=== PATIENT | female | born 1935 | race Caucasian/White ===

== ENCOUNTER 2017-02-01 13:02 | Outpatient (CLI) | payer OTHER | END 2017-02-01 13:03 | disposition home or self-care (01) | DX: Z13.820 Encounter for screening for osteoporosis (principal) ==

== ENCOUNTER 2019-05-09 14:40 | Emergency (ER) | payer MEDICARE, OTHER ==
[2019-05-09] MEDS ORDERED: HYDROcod/ACETAM 5/325 MG TABLET PO STA (16:24)
--- NOTE | 2019-05-09 16:27 | ED Physician Documentation ---
History of Present Illness - Stated complaint Stated Complaint: PAIN IN BOTH KNEES - Chief complaint Chief Complaint: Ext Problem - History obtained from History obtained from: Patient, Family (granddaughter) - History of Present Illness Timing: Chronic (84-year-old woman who lives alone after the passing of her about a year ago of 65 years presents with chronic right knee pain that is a little worse than normal and some numbness of the left leg which is diffuse and not dermatomal which is caused to falls without injury recently because her leg is giving out on her despite using a walker. She does have also have chronic back pain. No fevers, chills, weight loss. No history of cancer. 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.) Review of Systems Ten Systems: 10 systems reviewed and negative Constitutional: denies: Fever, Chills Cardiac: denies: Chest pain / pressure, Palpitations Respiratory: denies: Dyspnea, Cough GI: denies: Abdominal Pain PD PAST MEDICAL HISTORY - Present Medications Home Medications: Ambulatory Orders Medication Instructions Recorded Confirmed Hydrocodone/Acetaminophen 1 - 2 each PO Q6H PRN #14 tablet 05/09/19 [Hydrocodon-Acetaminophen 5-325] - Allergies Allergies/Adverse Reactions: Allergies Allergy/AdvReac Type Severity Reaction Status Date / Time No Known Drug Allergies Allergy Verified 05/09/19 14:50 PD ED PE NORMAL - Vitals Vital signs reviewed: Yes - General General: Alert and oriented X 3, No acute distress - HEENT HEENT: PERRL, EOMI - Cardiac Cardiac: RRR, No murmur - Respiratory Respiratory: No respiratory distress, Clear bilaterally - Abdomen Abdomen: Non tender - Back Back: No spinal TTP - Extremities Extremities: Other (The right knee does have a small effusion, it is slightly warm but certainly not hot with no overlying redness. She has mild pain with passive range of motion. Despite her complaints she has equal and symmetric sensation throughout the lower extremities. 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 No active cellulitis.) - Neuro Neuro: Alert and oriented X 3, Normal speech Results - Vitals Vitals: Vital Signs - 24 hr 05/09/19 05/09/19 14:44 19:02 Temperature 37.2 C 36.9 C Heart Rate 89 70 Respiratory 18 20 Rate Blood Pressure 179/66 H 189/58 H O2 Saturation 96 95 Oxygen O2 Source Room air - Labs Labs: Laboratory Tests 05/09/19 05/09/19 05/09/19 16:36 16:36 19:19 WBC 11.7 H RBC 5.07 Hgb 13.8 Hct 44.4 MCV 87.6 MCH 27.2 MCHC 31.1 L RDW 15.6 H Plt Count 275 MPV 10.3 Neut # (Auto) 9.8 H Lymph # (Auto) 0.9 L [place] # (Auto) 1.0 Eos # (Auto) 0.0 Baso # (Auto) 0.0 Absolute Nucleated RBC 0.00 Nucleated RBC % 0.0 Sodium 139 Potassium 4.7 Chloride 104 Carbon Dioxide 21 Anion Gap 14.0 H BUN 46 H Creatinine 2.4 H Estimated GFR (MDRD) 19 L Glucose 121 H Calcium 9.4 Total Bilirubin 1.3 H AST 36 ALT 24 Alkaline Phosphatase 62 Total Protein 7.8 Albumin 3.7 Globulin 4.1 Albumin/Globulin Ratio 0.9 L Lipase 21 L Fluid Source SYNOVIAL Fluid Color BLOODY Fluid Clarity BLOODY Fluid WBC 7808 Fluid RBC [id number] Fluid Crystals 05/09/19 19:19 WBC RBC Hgb Hct MCV MCH MCHC RDW Plt Count MPV Neut # (Auto) Lymph # (Auto) [place] # (Auto) Eos # (Auto) Baso # (Auto) Absolute Nucleated RBC Nucleated RBC % Sodium Potassium Chloride Carbon Dioxide Anion Gap BUN Creatinine Estimated GFR (MDRD) Glucose Calcium Total Bilirubin AST ALT Alkaline Phosphatase Total Protein Albumin Globulin Albumin/Globulin Ratio Lipase Fluid Source Fluid Color Fluid Clarity Fluid WBC Fluid RBC Fluid Crystals NONE SEEN - Rads (name of study) L spine CT Radiology: EMP read contemporaneously (DDD, 2.7cm AAA needs F/u 5 yrs, gallstones) R knee XR Radiology: EMP read contemporaneously (OA effiusion) Procedures - Arthrocentesis Joint: Knee, Right Preparation: Consent obtained, Sterile prep and drape Anesthesia: Lidocaine 1% Fluid: Bloody, Sent for cell count, Sent for crystals, Fluid obtained - cc (30ml), Sent for gram stain, Other (instilled 5ml 0.5%marcaine). No: Purulent Aftercare: Dressing applied PD MEDICAL DECISION MAKING - ED course ED course: 84-year-old woman with chronic right knee pain and some back pain 2. She has some symptoms that would be concerning for her sciatica radiculopathy but no physical findings of same. She has terrible arthritis in the right knee and in the back but no other acute findings. After discussion with the on-call orthopedic surgeon, Dr. Marcos we decided to do arthrocentesis and I got about 30 mL off and injected about 5 mL of 0.5% Marcaine. He recommended no steroids given the remote possibility of infection and she did not get any steroids. After all this was done she was feeling much better and ambulate and around the department without evident pain. Departure - Departure Disposition: Home, Self Care Clinical Impression: Osteoarthritis of right knee Qualifiers: Osteoarthritis type: primary Qualified Code(s): M17.11 - Unilateral primary osteoarthritis, right knee Condition: Good Record reviewed to determine appropriate education?: Yes Instructions: Total Knee Replace Minimal Invasive About Follow-Up: [facility] [Provider Group] - Within 1 week Prescriptions: Hydrocodone/Acetaminophen [Hydrocodon-Acetaminophen 5-325] 1 - 2 each PO Q6H PRN #14 tablet PRN Reason: pain Comments: You need to follow-up with an orthopedic surgeon regarding your knee and also your primary care physician. We found some other findings on your CAT scan today, you have gallstones and a very small abdominal aortic aneurysm that needs to be rechecked in 5 years. Return for new or worsening symptoms.
[2019-05-09 16:40] LABS: BASOPHILS % (AUTO) 0.2 %; EOSINOPHILS % (AUTO) 0.1 %; HGB - HEMOGLOBIN 13.8 g/dL (12.0-16.0); LYMPHOCYTES # (AUTO) 0.9 10^3/uL (1.5-3.5); LYMPHOCYTES % (AUTO) 7.3 %; MEAN CORPUSCULAR HEMOGLOBIN 27.2 pg (27.0-31.0); MEAN CORPUSCULAR HGB CONC 31.1 g/dL (32.0-36.0); MEAN CORPUSCULAR VOLUME 87.6 fL (81.0-99.0); MEAN PLATELET VOLUME 10.3 fL (7.9-10.8); MONOCYTES % (AUTO) 8.5 %; NEUTROPHILS # (AUTO) 9.8 10^3/uL (1.5-6.6); NEUTROPHILS % (AUTO) 83.6 %; PLT - PLATELET COUNT 275 10^3/uL (130-450); RED BLOOD COUNT 5.07 10^6/uL (4.20-5.40); RED CELL DISTRIBUTION WIDTH 15.6 % (12.0-15.0); WHITE BLOOD COUNT 11.7 x10^3/uL (4.8-10.8)
[2019-05-09 16:55] LABS: ALBUMIN 3.7 g/dL (3.2-5.5); ALBUMIN/GLOBULIN RATIO 0.9 (1.0-2.2); BILIRUBIN,TOTAL 1.3 mg/dL (0.2-1.0); CALCIUM 9.4 mg/dL (8.5-10.3); CREATININE 2.4 mg/dL (0.4-1.0); TOTAL PROTEIN 7.8 g/dL (6.7-8.2)
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
--- NOTE | 2019-05-09 18:17 | CT Report ---
Reason: back/knee pain, leg numbness Procedure Date: 05/09/2019 Accession Number: [id number] / [id number] Procedure: CT - LUMBAR SPINE WO CPT Code: FULL RESULT: EXAM: CT LUMBAR SPINE WITHOUT CONTRAST EXAM DATE: 05/09/2019 05:35 PM. CLINICAL HISTORY: Back/knee pain, leg numbness. COMPARISONS: XR LUMBOSACRAL SPINE 4 VIEWS 09/07/2010 10:38 AM. TECHNIQUE: Thin-section axial images were acquired of the lumbar spine from T12 to S1 without contrast. Post-processing: Coronal and sagittal reformats. Other: None. In accordance with CT protocol optimization, one or more of the following dose reduction techniques were utilized for this exam: automated exposure control, adjustment of mA and/or KV based on patient size, or use of iterative reconstructive technique. FINDINGS: Alignment: Dextroconvex curvature of the lumbar spine. Superior left pelvic tilt. Bones/discs: Five [id number] lumbar vertebral bodies are present. The bones are osteopenic. No acute fracture, subluxation, or compression deformity. Moderate to severe multilevel degenerative facet arthropathy. Multilevel degenerative disk disease. Bilateral bony neural foramina narrowing most significant from L2-L4. Moderate spinal canal stenosis at L3-L4. Musculature: Unremarkable. Other: The gallbladder is partially visualized and appears distended. Partially visualized calcified gallstones. Atherosclerosis of the abdominal aorta and iliac arteries. The infrarenal abdominal aorta is mildly dilated measuring up to 2.7 x 2.5 cm. Diverticulosis of the visualized sigmoid colon. No acute inflammatory changes visualized. IMPRESSION: Osteopenia. No acute fracture or malalignment of the lumbar spine. Moderate to severe multilevel degenerative joint and disk disease, as described above. Partial visualization of the gallbladder, which is distended and contains calcified intraluminal gallstones. Further evaluation with gallbladder ultrasound recommended as clinically indicated. Infrarenal abdominal aortic aneurysm measuring up to 2.7 cm in diameter. Based on size, routine surveillance recommended every 5 years. Sigmoid diverticulosis. No evidence of acute diverticulitis of the visualized sigmoid colon. RADIA
[2019-05-09] MEDS ORDERED: BUPIVACAINE 0.5% PF 10 ML VIAL SUBQ STA (18:54)
[2019-05-09] MEDS ORDERED: LIDOCAINE 1%-EPI 1:100000 20 ML MDV SUBQ STA (18:54)
[2019-05-09 20:22] LABS: BF COLOR BLOODY; BF SOURCE SYNOVIAL; CC,BF RBC 258000 /mm^3
[2019-05-09] MEDS ORDERED: HYDROcod/ACET 5/325 Prepack 4 PO STA (20:38)
[2019-05-09 20:53] VITALS: BP 159/72
[2019-05-09 21:27] LABS: LYMPHOCYTES %,BODY FLUID 5; MESOTHELIAL %, BF 0 %; MONOCYTES %,BODY FLUID 4 %
== END 2019-05-09 20:58 | disposition home or self-care (01) ==
LOC: ED 14:40
DX: M25.461 Effusion, right knee (principal); M17.11 Unilateral primary osteoarthritis, right knee; M46.90 Unspecified inflammatory spondylopathy, site unspecified
CPT/HCPCS: 20610; 36415; 72131; 73562; 80053; 83690; 85025; 87070; 87205; 89051; 89060; 99282; 99284; A9270

== ENCOUNTER 2019-05-13 13:07 | Outpatient (CLI) | payer MEDICARE | END 2019-05-13 13:08 | disposition EMS.NT | LOC: EMS 13:07 | PROVIDERS: ATTEND Surgery | DX: Z03.89 Encounter for observation for other suspected diseases and conditions ruled out (principal) ==

== ENCOUNTER 2019-09-04 18:11 | Outpatient (CLI) | payer MEDICARE | END 2019-09-04 18:12 | disposition critical access hospital (66) | LOC: EMS 18:11 | PROVIDERS: ATTEND Surgery | DX: Z04.3 Encounter for examination and observation following other accident (principal) | CPT/HCPCS: A0425; A0427 ==

== ENCOUNTER 2019-09-04 18:31 | Inpatient (IN) | payer MEDICARE ==
[2019-09-04] MEDS ORDERED: ACETAMINOPHEN 325 MG TABLET PO STA (18:53)
[2019-09-04] MEDS ORDERED: SODIUM CHLORIDE 0.9% 1,000 ML IV ONE (18:53)
--- NOTE | 2019-09-04 18:55 | ED Physician Documentation ---
PD HPI SYNCOPE - Stated complaint Stated Complaint: FALL, DAYS DOWN, HTN, AFIB - Chief complaint Chief Complaint: General - History obtained from History obtained from: Patient, Family, EMS - History of Present Illness Witnessed: Unwitnessed Timing - onset: Yesterday (She likely fainted last evening or sometime yesterday. She states she remembers going to the bathroom and then getting up from the bathroom and feeling generally weak and lightheaded. She next remembers her granddaughter talking at her on the floor. 1 of her daughters had last talked to her on Tuesday which was 2 days ago. Her granddaughter came in to check on her today as no one had heard from her through the day today. The granddaughter found her pet bird still with the nighttime cover on it and it did not look like the patient had been at all during the day today. Presumption therefore is the patient fell yesterday or last evening and had been on the floor since that time. The patient is not aware where of that degree of time having passed.) Preceding symptoms: Nausea / vomiting (She has been feeling nauseated with less appetite over the last 4 to 5 days.), Light headed, Generalized weakness Contributing factors: Recent med change (Treatment for shingles in the past 2 weeks), Decreased PO intake, Just stood up (She remembers feeling lightheaded when getting up from the toilet), Other (she is on Plavix) Injury occurred: Fell Similar symptoms before: Has not had sx before (No prior syncopal episodes.) Recently seen: Clinic (She had facial shingles on the right side and was treated with the valacyclovir and steroids for 5 days and had some diminishing of the rash and it was drying up. However she still had pain and tingling on the face and so was started on gabapentin a week ago. She reportedly was feeling sleepy and lightheaded after starting that. She also been having less appetite and some nausea.) Review of Systems Constitutional: reports: Fatigue. denies: Fever, Chills Nose: denies: Rhinorrhea / runny nose, Congestion Throat: denies: Sore throat Cardiac: denies: Chest pain / pressure Respiratory: denies: Dyspnea, Cough GI: reports: Nausea. denies: Abdominal Pain, Vomiting (but decreased intake for few days), Diarrhea, Bloody / black stool : denies: Dysuria, Incontinent Skin: reports: Rash (shingles right face for 2 weeks, improving but with pain/numbness still.) Musculoskeletal: denies: Neck pain, Back pain Neurologic: reports: Generalized weakness. 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 : None HEENT: None Psych: None Musculoskeletal: Other Derm: None - Present Medications Home Medications: Ambulatory Orders Medication Instructions Recorded Confirmed Hydrocodone/Acetaminophen 1 - 2 each PO Q6H PRN #14 tablet 05/09/19 [Hydrocodon-Acetaminophen 5-325] - Allergies Allergies/Adverse Reactions: Allergies Allergy/AdvReac Type Severity Reaction Status Date / Time No Known Drug Allergies Allergy Verified 09/04/19 18:41 - Social History Does the pt smoke?: No Smoking Status: Never smoker Does the pt drink ETOH?: No Does the pt have substance abuse?: No - Immunizations Immunizations: TDAP >10years/unknown PD ED PE NORMAL - Vitals Vital signs reviewed: Yes - General General: Alert and oriented X 3, Well developed/nourished - HEENT HEENT: Pharynx benign, Other (Right dustin-orbital and forehead area with drying vesicular rash that is tender consistent with improving shingles.). No: Moist mucous membranes - Neck Neck: Supple, no meningeal sign, No bony TTP, No JVD - Cardiac Cardiac: RRR, No murmur - Respiratory Respiratory: Clear bilaterally - Abdomen Abdomen: Soft, Non tender - Back Back: No CVA TTP, No spinal TTP - Derm Derm: Normal color, Warm and dry - Extremities Extremities: No deformity, No tenderness to palpate, No edema, No calf tenderness / cord - Neuro Neuro: Alert and oriented X 3, dyno technician 2-12 intact, No motor deficit, No sensory deficit, Normal speech Eye Opening: Spontaneous Motor: Obeys Commands Verbal: Oriented GCS Score: 15 Results - Vitals Vitals: Vital Signs - 24 hr 09/04/19 09/04/19 09/04/19 18:41 18:56 19:20 Temperature 36.9 C Heart Rate 69 71 Respiratory 16 18 Rate Blood Pressure 206/61 H 203/67 H O2 Saturation 100 95 90 L Oxygen O2 Source Nasal cannula - EKG (time done) 18:58 Rate: Rate (enter#) (59) Rhythm: Sinus bradycardia [place]: Normal Intervals: Normal [place] QRS: Normal Ischemia: Normal ST segments. No: ST elevation c/w ischemia, ST depression - Labs Labs: Laboratory Tests 09/04/19 09/04/19 09/04/19 18:42 18:42 18:42 WBC 8.8 RBC 4.06 L Hgb 11.9 L Hct 36.5 L MCV 89.9 MCH 29.3 MCHC 32.6 RDW 14.9 Plt Count 245 MPV 11.1 H Neut # (Auto) 7.5 H Lymph # (Auto) 0.7 L [place] # (Auto) 0.5 Eos # (Auto) 0.1 Baso # (Auto) 0.0 Absolute Nucleated RBC 0.00 Nucleated RBC % 0.0 PT 12.3 INR 1.1 APTT 27.7 Sodium 137 Potassium 4.5 Chloride 107 Carbon Dioxide 18 L Anion Gap 12.0 BUN 55 H Creatinine 2.7 H Estimated GFR (MDRD) 17 L Glucose 78 Calcium 8.9 Magnesium 2.0 Total Bilirubin 1.4 H AST 37 ALT 17 Alkaline Phosphatase 43 Total Creatine Kinase 902 H Troponin I High Sens Total Protein 6.6 L Albumin 3.6 Globulin 3.0 Albumin/Globulin Ratio 1.2 Lipase 24 09/04/19 18:42 WBC RBC Hgb Hct MCV MCH MCHC RDW Plt Count MPV Neut # (Auto) Lymph # (Auto) [place] # (Auto) Eos # (Auto) Baso # (Auto) Absolute Nucleated RBC Nucleated RBC % PT INR APTT Sodium Potassium Chloride Carbon Dioxide Anion Gap BUN Creatinine Estimated GFR (MDRD) Glucose Calcium Magnesium Total Bilirubin AST ALT Alkaline Phosphatase Total Creatine Kinase Troponin I High Sens 84.2 H* Total Protein Albumin Globulin Albumin/Globulin Ratio Lipase - Rads (name of study) head CT Radiology: Prelim report reviewed (age related changes. No acute ICH. ), See rad report cervical CT Radiology: Prelim report reviewed (no fractures/acute changes), See rad report bilat knees Radiology: Prelim report reviewed (no fractures; arthritic changes), See rad report chest x Radiology: Prelim report reviewed (no acute process), See rad report PD MEDICAL DECISION MAKING - ED course Complexity details: reviewed results (Lab results are noted. Recheck vitals are showing initially a lower adequate blood pressure but this did increase. However she had not been on any of her usual medicines for a day or more which includes a blood pressure medicine. We can give her a dose of metoprolol IV. Recheck of the vital signs after that.), re-evaluated patient (She is appearing with better color and more energetic after some IV fluids and also some dextrose and oral intake. She does have renal insufficiency has a baseline and it slightly worse at 2.7 compared to her previous 2.4. With that in mind, her creatinine kinase of 900 is still concerning for the potential of renal insufficiency from the rhabdomyolysis. I think she needs further hydration and evaluation of her kidney function and clearing of the muscle proteins. I would also better evaluate for the reasoning of her apparent syncope. The most likely cause may be a combination of under hydration and nutrition feeling less appetite and nauseous the last several days combined with the effect of the gabapentin she had been prescribed a week ago. This has been making her sleepy and lightheaded.), considered differential (Sounds likely a postural hypotension compounded by under hydration and side effects to gabapentin. However she did have a prolonged loss of consciousness or unawareness of time as she likely fell last evening and did not feel like she been on the floor for long time. She has had renal insufficiency at baseline and the elevated CK will be worrisome for potential worsening of renal function and needs to be have hydration. Want to make sure not to fluid overload her load her too quickly though given the underlying renal failure. This will need judicious monitoring over a longer period than just the ER.), d/w patient Departure - Departure Disposition: 66 [facility] DC/Xfer Clinical Impression: Dehydration Syncope Qualifiers: Syncope type: unspecified Qualified Code(s): R55 - Syncope and collapse Rhabdomyolysis Qualifiers: Rhabdomyolysis type: traumatic Encounter type: initial encounter Qualified Code(s): T79.6XXA - Traumatic ischemia of muscle, initial encounter Chronic renal insufficiency Qualifiers: Chronic kidney disease stage: unspecified stage Qualified Code(s): N18.9 - Chronic kidney disease, unspecified Condition: Stable Record reviewed to determine appropriate education?: Yes Discharge Date/Time: 09/04/19 21:42
[2019-09-04 19:00] LABS: BASOPHILS % (AUTO) 0.5 %; EOSINOPHILS # (AUTO) 0.1 10^3/uL (0.0-0.7); EOSINOPHILS % (AUTO) 1.4 %; HGB - HEMOGLOBIN 11.9 g/dL (12.0-16.0); LYMPHOCYTES # (AUTO) 0.7 10^3/uL (1.5-3.5); LYMPHOCYTES % (AUTO) 7.8 %; MEAN CORPUSCULAR HEMOGLOBIN 29.3 pg (27.0-31.0); MEAN CORPUSCULAR HGB CONC 32.6 g/dL (32.0-36.0); MEAN CORPUSCULAR VOLUME 89.9 fL (81.0-99.0); MEAN PLATELET VOLUME 11.1 fL (7.9-10.8); MONOCYTES # (AUTO) 0.5 10^3/uL (0.0-1.0); MONOCYTES % (AUTO) 5.2 %; NEUTROPHILS # (AUTO) 7.5 10^3/uL (1.5-6.6); NEUTROPHILS % (AUTO) 84.8 %; PLT - PLATELET COUNT 245 10^3/uL (130-450); RED BLOOD COUNT 4.06 10^6/uL (4.20-5.40); RED CELL DISTRIBUTION WIDTH 14.9 % (12.0-15.0); WHITE BLOOD COUNT 8.8 x10^3/uL (4.8-10.8)
[2019-09-04 19:05] LABS: INR 1.1 (0.8-1.2); PT - PROTHROMBIN TIME 12.3 secs (9.9-12.6)
[2019-09-04 19:09] LABS: ALBUMIN 3.6 g/dL (3.2-5.5); ALBUMIN/GLOBULIN RATIO 1.2 (1.0-2.2); BILIRUBIN,TOTAL 1.4 mg/dL (0.2-1.0); CALCIUM 8.9 mg/dL (8.5-10.3); CREATININE 2.7 mg/dL (0.4-1.0); TOTAL PROTEIN 6.6 g/dL (6.7-8.2)
[2019-09-04 19:12] LABS: PARTIAL THROMBOPLASTIN TIME 27.7 secs (24.9-33.3)
[2019-09-04] MEDS ORDERED: DEXTROSE 10% 250 ML IV STA (19:18)
--- NOTE | 2019-09-04 20:08 | CT Report ---
Reason: fall struck face Procedure Date: 09/04/2019 Accession Number: [id number] / [id number] Procedure: CT - HEAD WO CPT Code: Final Report FULL RESULT: EXAM: CT HEAD EXAM DATE: 09/04/2019 07:38 PM. CLINICAL HISTORY: Fall struck face. COMPARISON: HEAD 03/19/2007 5:20 PM. TECHNIQUE: Multiaxial CT images were obtained from the foramen magnum to the vertex. Reformats: Sagittal and coronal. IV contrast: None. In accordance with CT protocol optimization, one or more of the following dose reduction techniques were utilized for this exam: automated exposure control, adjustment of mA and/or KV based on patient size, or use of iterative reconstructive technique. FINDINGS: Parenchyma: No intraparenchymal hemorrhage. No evidence of mass, midline shift, or CT findings of acute infarction. Hutton-white differentiation is distinct. Diffuse chronic microangiopathic white matter changes are evident. Chronic infarct in the left parietal lobe and posterior left insula. Extraaxial Spaces: Normal for age. No subdural or epidural collections identified. Ventricles: The ventricles and cortical sulci are enlarged, consistent with age-related tissue loss. Sinuses and orbits: Imaged paranasal sinuses, orbits, and mastoids show no significant abnormality. Bones: No evidence of fracture or calvarial defect. Other: Atherosclerotic calcification of the cavernous carotid arteries. IMPRESSION: 1. Generalized age-related cortical atrophic changes without evidence of acute intracranial abnormality. 2. Chronic left parietal/insular MCA distribution infarct. RADIA
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
--- NOTE | 2019-09-04 20:22 | XRAY Report ---
Reason: syncope Procedure Date: 09/04/2019 Accession Number: [id number] / [id number] Procedure: XR - Chest 1 View X-Ray CPT Code: 80597 Final Report FULL RESULT: EXAM: CHEST RADIOGRAPHY EXAM DATE: 09/04/2019 07:35 PM. CLINICAL HISTORY: Syncope. COMPARISON: None. TECHNIQUE: 1 view. A few overlying EKG wires and leads. FINDINGS: Lungs/Pleura: No focal opacities evident. No pleural effusion. No pneumothorax. Mediastinum: Within exam limitations, the cardiomediastinal contour is normal. Other: None. IMPRESSION: No acute disease in chest. RADIA
--- NOTE | 2019-09-04 20:26 | XRAY Report ---
Reason: fall onto both knees Procedure Date: 09/04/2019 Accession Number: [id number] / [id number] Procedure: XR - Knee 3 View BILAT CPT Code: Final Report FULL RESULT: EXAM: BILATERAL KNEE RADIOGRAPHY EXAM DATE: 09/04/2019 07:35 PM. CLINICAL HISTORY: Fall, pain. COMPARISON: KNEE 3 VIEW RT 05/09/2019 4:45 PM. TECHNIQUE: Each knee, 3 views. FINDINGS: Bones: Osteopenia. No definite fracture or other bone lesion. Joints: Marked bilateral 3 compartment joint space narrowing with prominent marginal osteophytes. Small joint effusions, left more than right. Soft Tissues: Unremarkable. IMPRESSION: Marked bilateral degenerate joint disease with small effusions. No definite acute disease. RADIA
[2019-09-04] MEDS ORDERED: SODIUM CHLORIDE FLUSH 0.9% 10 ML SYRINGE IVP PRN (20:45)
[2019-09-04] MEDS ORDERED: ACETAMINOPHEN 325 MG TABLET PO PRN (20:45)
[2019-09-04] MEDS ORDERED: METOPROLOL 5 MG/5 ML VIAL IVP STA (20:48)
--- NOTE | 2019-09-04 21:03 | HISTORY & PHYSICAL EXAMINATION ---
Chief Complaint - Chief Complaint Chief Complaint: syncope History of Present Illness - Admitted From Admitted From:: [facility] - History Obtained From Records Reviewed: yes History obtained from: ED physician and patient - History of Present Illness HPI Comment/Other: Patient is an 84 y/o female who was brought in by her granddaughter after she wa s found face down today around 5pm. She was doing alright 2 days ago (tuesday night). She reports going to the bathroom. Things felt funny when she got off the toilet. She does not remember anything afterwards. Her son Ismael who is DPOA [phone] recalls that she called him at midnight on Tuesday asking him not to pick her up the following day because she was not going to make her hair appointment. She had on scheduled. He reports that as being unusual because she never calls at midnight. She has a pet parrot whose cage is usually cover with a cloth before bedtime. When her granddaughter arrived and found her, the cage was still covered so she estimates she would have been laying there for at least 12- 18 hours. The patient denies any chest pain, dyspnea, abd pain, fever or chills. She recen tly completed antiviral treatment (acyclovir) for shingles. She is on gabapentin as part of treatment. She has bilateral dustin-orbital puffiness and redness. Her skin is very thin Lab work showed a CK of 902, Trop 84, Creatinine 2.7. Baseline is 2.4. She was also found to have a SBP of 206 in the ED. As a result of the above she is being admitted for further treatment. PS: Granddaughter: Kiersten [phone]. Very involved in patient care and most knowledgeable of her history. Son: Ismael (DPOA): [phone]. History - Past Medical History Cardiovascular: reports: Hypertension Respiratory: reports: None Neuro: reports: None Endocrine/Autoimmune: reports: None GI: reports: None UNDER WATER ASSISTANT: reports: None : reports: None HEENT: reports: None Psych: reports: None Musculoskeletal: reports: Other Derm: reports: None MRSA Hx?: No - Past Surgical History Other past surgical history: No surgical history - Family & Social History Family History Comment/Other: She had 5 children. a son from alcoholic liver cirrhosis and a daughter from breast cancer. She has 3 living children. She has no siblings. Living arrangement: At home Living Situation: Alone Social History Notes: She does no smoke, use alcohol or illicit substances. - POLST Patient has POLST: No POLST Status: DNR Meds/Allgy - Home Medications Home Medications: Ambulatory Orders Medication Instructions Recorded Confirmed Hydrocodone/Acetaminophen 1 - 2 each PO Q6H PRN #14 tablet 05/09/19 [Hydrocodon-Acetaminophen 5-325] - Allergies Allergies/Adverse Reactions: Allergies Allergy/AdvReac Type Severity Reaction Status Date / Time No Known Drug Allergies Allergy Verified 09/04/19 18:41 Review of Systems - Constitutional Constitutional: denies: Fatigue, Fever, Chills - Eyes Eyes: denies: Pain, Vision loss - Ears, Nose & Throat Ears, Nose & Throat: denies: Tinnitus, Sore throat - Cardiovascular Cariovascular: reports: Syncope. denies: Irregular heart rate, Palpitations, Chest pain, Edema, Exertional dyspnea, Decr. exercise tolerance - Respiratory Respiratory: denies: Cough, Wheezing, SOB at rest, SOB with exertion - Gastrointestinal Gastrointestinal: denies: Abdominal pain, Abdominal distention, Constipation, Diarrhea, Nausea, Vomiting, Coffee grounds emesis, Reflux/heartburn - Genitourinary Genitourinary: denies: Dysuria, Frequency - Musculoskeletal Musculoskeletal: reports: Joint pain (knees) - Integumentary Integumentary: reports: Other (periorbital redness and puffiness) - Neurological Neurological: reports: General weakness, Dizziness. denies: Focal weakness, Headache - Psychiatric Psychiatric: denies: Depression, Anxiety - Endocrine Endocrine: denies: Polyuria, Polydypsia - Hematologic/Lymphatic Hematologic/Lymphatic: denies: Anemia, Bruising Prior Level of Functionality: Patient gets around in her house using a walker. Her granddaughter shops for her every Tuesday. She mainly purchases ready-made foods that mainly require heating. Her granddaughter explains that some of the food goes uneaten and that the patient is not doing well on her own unsupervised. Exam - Vital Signs Vital Signs: Vital Signs x48h Temp Pulse Resp BP Pulse Ox 09/04/19 19:20 90 L 09/04/19 18:56 71 18 203/67 H 95 09/04/19 18:41 36.9 C 69 16 206/61 H 100 - Physical Exam General Appearance: positive: No acute distress, Alert Eyes Bilateral: positive: Other (Bilateral periorbital redness and puffiness) ENT: positive: Dry mucous membranes Neck: positive: Nml inspection, No JVD, Trachea midline Respiratory: positive: Chest non-tender, No respiratory distress, Breath sounds nml. negative: Wheezes, Rales, Rhonchi Cardiovascular: positive: Regular rate & rhythm, No murmur Abdomen: positive: Non-tender, No organomegaly, Nml bowel sounds, No distention Back: positive: Nml inspection Skin: positive: Other (bilateral periorbital redness and puffiness). negative: Color nml Extremities: positive: Non-tender, No pedal edema Neurologic/Psychiatric: positive: Oriented x3, Mood/affect nml Conclusion/Plan - Problem List (1) Syncope Conclusion/Plan: ?2/2 Dehydration vs medication Patient has been on gabapentin as part of shingles treatment. IV hydration with kemi saline at 125ml/hr. 2D echo in the morning Hold gabapentin Qualifiers: Syncope type: unspecified Qualified Code(s): R55 - Syncope and collapse (2) Dehydration Conclusion/Plan: Likely 2/2 poor po intake. IV hydration with normal saline (3) Rhabdomyolysis Conclusion/Plan: Likely 2/2 dehydration then syncope and being on the ground for a long time IV hydration. Trend CK Qualifiers: Rhabdomyolysis type: traumatic Encounter type: initial encounter Qualified Code(s): T79.6XXA - Traumatic ischemia of muscle, initial encounter (4) Acute on chronic renal insufficiency Conclusion/Plan: 2/2 Dehydration and rhabdo. Baseline Cr is 2.4 IV hydration. Monitor renal function (5) Hypertensive urgency Conclusion/Plan: Improving. Hydralazine IV ordered prn Will resume patient's home medication once verified (6) Osteoarthritis of right knee Conclusion/Plan: Cobb prn Qualifiers: Osteoarthritis type: primary Qualified Code(s): M17.11 - Unilateral primary osteoarthritis, right knee (7) Elevated troponin Conclusion/Plan: Will trend - Lab Results Fish Bones: 09/04/19 18:42 09/04/19 18:42 Core Measures - Anticipated LOS I expect patient to be DC'd or transferred within 96 hours.: Yes - DVT/VTE - Prophylaxis VTE/DVT Device ordered at admit?: Yes
[2019-09-04] MEDS ORDERED: hydrALAZINE INJ 20 MG/ML VIAL IVP STA (21:44)
[2019-09-04] MEDS: hydrALAZINE INJ 20 MG/ML VIAL IVP PRN (22:20)
[2019-09-04] MEDS: SODIUM CHLORIDE 0.9% 1,000 ML IV SCH (22:26)
[2019-09-04] MEDS: SODIUM CHLORIDE FLUSH 0.9% 10 ML SYRINGE IVP SCH (23:47)
[2019-09-05] MEDS: hydrALAZINE INJ 20 MG/ML VIAL IVP PRN ×2 (05:33→16:05)
[2019-09-05] MEDS: SODIUM CHLORIDE 0.9% 1,000 ML IV SCH ×3 (05:38→23:35)
[2019-09-05 07:12] LABS: BASOPHILS # (AUTO) 0.1 10^3/uL (0.0-0.1); BASOPHILS % (AUTO) 0.6 %; EOSINOPHILS # (AUTO) 0.2 10^3/uL (0.0-0.7); EOSINOPHILS % (AUTO) 2.8 %; HGB - HEMOGLOBIN 11.5 g/dL (12.0-16.0); LYMPHOCYTES # (AUTO) 0.9 10^3/uL (1.5-3.5); LYMPHOCYTES % (AUTO) 10.1 %; MEAN CORPUSCULAR HEMOGLOBIN 29.3 pg (27.0-31.0); MEAN CORPUSCULAR HGB CONC 32.5 g/dL (32.0-36.0); MEAN CORPUSCULAR VOLUME 90.1 fL (81.0-99.0); MEAN PLATELET VOLUME 10.7 fL (7.9-10.8); MONOCYTES # (AUTO) 0.4 10^3/uL (0.0-1.0); MONOCYTES % (AUTO) 4.7 %; NEUTROPHILS % (AUTO) 81.3 %; PLT - PLATELET COUNT 249 10^3/uL (130-450); RED BLOOD COUNT 3.93 10^6/uL (4.20-5.40); WHITE BLOOD COUNT 8.6 x10^3/uL (4.8-10.8)
[2019-09-05 07:40] LABS: CALCIUM 8.6 mg/dL (8.5-10.3); CREATININE 2.2 mg/dL (0.4-1.0)
[2019-09-05] MEDS ORDERED: cloNIDine 0.1 MG TABLET PO PRN (08:04)
[2019-09-05] MEDS: HYDROcod/ACETAM 5/325 MG TABLET PO PRN ×2 (08:06→16:04)
[2019-09-05] MEDS ORDERED: FLU VACC QS2019-20(6MOS UP)/PF 60 MCG/0.5 ML SYRINGE IM ONE (09:00)
[2019-09-05] MEDS: SODIUM CHLORIDE FLUSH 0.9% 10 ML SYRINGE IVP SCH ×2 (10:49→16:05)
[2019-09-05] MEDS: HEPARIN 5,000 UNIT/ML VIAL SUBQ SCH ×2 (11:13→20:41)
--- NOTE | 2019-09-05 14:31 | PHARMACY PROGRESS NOTE ---
- Best Possible Medication History Admit Date and Time: 09/04/192044 Processed by: Pharmacy Medication History completed: In progress Patient Interview: Pt unable to participate Secondary Source(s): Other family member (Daughter & Son-in-law), Pharmacy records (Pending records from [facility]) As the person ultimately responsible for medication therapy, providers are able to order a medication from an existing home medication list in [facility] via the "Reconcile Routine" prior to Confirmation of that medication by contracting support specialist. Such practice is discouraged except when the physician, in their clinical judgment, deems that a medical need exists for a medication without regard to previous use.
[2019-09-05 15:28] LABS: CALCIUM 8.7 mg/dL (8.5-10.3); CREATININE 2.3 mg/dL (0.4-1.0)
[2019-09-05] MEDS ORDERED: ALPRAZolam 0.25 MG TABLET PO PRN (17:11)
--- NOTE | 2019-09-05 17:25 | PROVIDER PROGRESS NOTE ---
Assessment/Plan - Problem List (1) Syncope Qualifiers: Syncope type: unspecified Qualified Code(s): R55 - Syncope and collapse Assessment/Plan: pt still present weakness, difficult to walk, high risk of falls pt report she know she had heart Murmur. ECHO reveals preserved EF and good diastolic function as well but has moderate aortic regurgitation. advise pt followup can cleaner order orthostatic BP check continue hydration. pt report poor appetite, consult with materials planner/production planner (2) Dehydration Conclusion/Plan: pt has elevated creatinine, report she did not drink enough water. continue IVF of NS lab monitot (3) Rhabdomyolysis Conclusion/Plan: improved. continue IV hydration. 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 Hydralazine IV ordered and Clonidine prn resume patient's home medication (6) Osteoarthritis of right knee Conclusion/Plan: chronic knee joint pain. continue Van Meter prn (7) Elevated troponin Conclusion/Plan: stable and plate form. it is likely from pt's dehydration (8) shingles pt has hx of shingle around her left eye, she followup Dr Brooks her vocational nursing instructor. pt did not have acute complaint. advise pt followup her eye doctor (9)fall and weakness pt still present weakness and fall risk continue PT/OT - Current Meds Current Meds: Current Medications Generic Name Dose Route Start Last Admin Trade Name Freq PRN Reason Stop Dose Admin Hydrocodone Bitart/Acetaminophen 1 tab 09/04/19 23:11 09/05/19 16:04 [place] 5/325 PO 1 tab Q4HR PRN Administration PAIN Heparin Sodium (Porcine) 2,500 unit 09/05/19 09:00 09/05/19 11:13 SUBQ 2,500 unit BID JOSH Administration Hydralazine HCl 10 mg 09/04/19 21:45 09/05/19 16:05 Apresoline Inj IVP 10 mg Q4H PRN Administration PER PHYSICIAN ORDER Sodium Chloride 1,000 mls @ 125 mls/hr 09/04/19 21:00 09/05/19 15:12 Normal Saline 0.9% IV 125 mls/hr .Q8H JOSH Administration Sodium Chloride 10 ml 09/05/19 01:00 09/05/19 16:05 Normal Saline Flush 0.9% IVP 10 ml 0100,0900,1700 JOSH Administration - Lab Result Fish Bone Diagrams: 09/05/19 07:06 09/05/19 15:10 - Additional Planning My Orders: My Active Orders 09/05/19 Home Health Referral [CONS] Routine Evaluate and Treat PT [PT] Routine 09/05/19 08:04 cloNIDine [Catapres] 0.1 mg PO BID PRN 09/05/19 09:00 Heparin 2,500 unit SUBQ BID 09/05/19 17:11 ALPRAZolam [Xanax] 0.25 mg PO TID PRN 09/05/19 17:19 Losartan [Cozaar] 50 mg PO DAILY 09/05/19 18:00 Levothyroxine [Synthroid] 100 mcg PO QDAC 09/05/19 21:00 Gabapentin [Neurontin] 300 mg PO QPM Prazosin [Minipress] 1 mg PO BID 09/06/19 09:00 Clopidogrel [Plavix] 75 mg PO DAILY Subjective - Subjective Patient Reports: Feeling Better Objective Vital Signs: Vital Signs - 24 hr 09/04/19 09/04/19 09/04/19 18:41 18:56 19:20 Temperature 36.9 C Heart Rate 69 71 Heart Rate [ Brachial] Heart Rate [ Sitting] Heart Rate [ Supine] Respiratory 16 18 Rate Blood Pressure 206/61 H 203/67 H Blood Pressure [Left Brachial artery] Blood Pressure [Right Brachial artery] Blood Pressure [Sitting] Blood Pressure [Supine] O2 Saturation 100 95 90 L 09/04/19 09/04/19 09/04/19 21:45 22:06 22:20 Temperature 36.4 C L Heart Rate Heart Rate [ 51 L 51 L Brachial] Heart Rate [ Sitting] Heart Rate [ Supine] Respiratory 20 Rate Blood Pressure 178/126 H Blood Pressure 104/84 H 171/43 H [Left Brachial artery] Blood Pressure [Right Brachial artery] Blood Pressure [Sitting] Blood Pressure [Supine] O2 Saturation 100 09/04/19 09/04/19 09/04/19 22:30 22:35 22:50 Temperature Heart Rate 51 L 56 L 60 Heart Rate [ Brachial] Heart Rate [ Sitting] Heart Rate [ Supine] Respiratory Rate Blood Pressure 178/32 H 168/41 H 162/50 H Blood Pressure [Left Brachial artery] Blood Pressure [Right Brachial artery] Blood Pressure [Sitting] Blood Pressure [Supine] O2 Saturation 09/04/19 09/04/19 09/05/19 23:05 23:22 04:15 Temperature 36.0 C L 36.0 C L Heart Rate Heart Rate [ 66 63 55 L Brachial] Heart Rate [ Sitting] Heart Rate [ Supine] Respiratory 16 16 Rate Blood Pressure Blood Pressure [Left Brachial artery] Blood Pressure 168/50 H 168/43 H 173/40 H [Right Brachial artery] Blood Pressure [Sitting] Blood Pressure [Supine] O2 Saturation 100 100 09/05/19 09/05/19 09/05/19 05:33 05:41 05:45 Temperature Heart Rate Heart Rate [ 60 65 Brachial] Heart Rate [ Sitting] Heart Rate [ Supine] Respiratory Rate Blood Pressure 205/41 H Blood Pressure [Left Brachial artery] Blood Pressure 180/49 H 182/41 H [Right Brachial artery] Blood Pressure [Sitting] Blood Pressure [Supine] O2 Saturation 09/05/19 09/05/19 09/05/19 05:50 06:03 08:00 Temperature 36.8 C Heart Rate Heart Rate [ 64 74 Brachial] Heart Rate [ Sitting] Heart Rate [ Supine] Respiratory 20 Rate Blood Pressure 156/46 H Blood Pressure 156/46 H [Left Brachial artery] Blood Pressure 182/43 H [Right Brachial artery] Blood Pressure [Sitting] Blood Pressure [Supine] O2 Saturation 100 09/05/19 09/05/19 09/05/19 13:00 15:38 16:05 Temperature 37.4 C Heart Rate Heart Rate [ 64 Brachial] Heart Rate [ 77 Sitting] Heart Rate [ 69 Supine] Respiratory 18 Rate Blood Pressure 178/54 H Blood Pressure [Left Brachial artery] Blood Pressure 184/45 H [Right Brachial artery] Blood Pressure 182/72 H [Sitting] Blood Pressure 153/62 H [Supine] O2 Saturation 100 09/05/19 09/05/19 09/05/19 16:10 16:15 16:20 Temperature Heart Rate Heart Rate [ 68 75 76 Brachial] Heart Rate [ Sitting] Heart Rate [ Supine] Respiratory Rate Blood Pressure Blood Pressure 165/49 H [Left Brachial artery] Blood Pressure 173/45 H 163/45 H [Right Brachial artery] Blood Pressure [Sitting] Blood Pressure [Supine] O2 Saturation 09/05/19 16:59 Temperature Heart Rate Heart Rate [ Brachial] Heart Rate [ Sitting] Heart Rate [ Supine] Respiratory Rate Blood Pressure Blood Pressure [Left Brachial artery] Blood Pressure [Right Brachial artery] Blood Pressure [Sitting] Blood Pressure [Supine] O2 Saturation 99 Oxygen O2 Source Room air I&O (Last 24 Hrs): Intake and Output Totals x24h 09/03/19 09/04/19 09/05/19 23:59 23:59 23:59 Intake Total 1250 2650 Output Total 100 Balance 1250 2550 General: Alert, Oriented x3, No acute distress HEENT: Atraumatic, PERRLA, EOMI Neck: Supple Lymphatic: no adenopathy Neuro: Alert, Non Focal, Oriented Times 3 Cardiovascular: Regular rate, Normal S1, Normal S2 Respiratory: Chest non-tender, No respiratory distress, Breath sounds nml Abdomen: Normal bowel sounds, Soft Extremities: No edema, Normal pulses - Results Results: Laboratory Results WBC 8.6 x10^3/uL (4.8-10.8) 09/05/19 07:06 RBC 3.93 10^6/uL (4.20-5.40) L 09/05/19 07:06 Hgb 11.5 g/dL (12.0-16.0) L 09/05/19 07:06 Hct 35.4 % (37.0-47.0) L 09/05/19 07:06 MCV 90.1 fL (81.0-99.0) 09/05/19 07:06 MCH 29.3 pg (27.0-31.0) 09/05/19 07:06 MCHC 32.5 g/dL (32.0-36.0) 09/05/19 07:06 RDW 15.0 % (12.0-15.0) 09/05/19 07:06 Plt Count 249 10^3/uL (130-450) 09/05/19 07:06 MPV 10.7 fL (7.9-10.8) 09/05/19 07:06 Neut # (Auto) 7.0 10^3/uL (1.5-6.6) H 09/05/19 07:06 Lymph # (Auto) 0.9 10^3/uL (1.5-3.5) L 09/05/19 07:06 [place] # (Auto) 0.4 10^3/uL (0.0-1.0) 09/05/19 07:06 Eos # (Auto) 0.2 10^3/uL (0.0-0.7) 09/05/19 07:06 Baso # (Auto) 0.1 10^3/uL (0.0-0.1) 09/05/19 07:06 Absolute Nucleated RBC 0.00 x10^3/uL 09/05/19 07:06 Nucleated RBC % 0.0 /100WBC 09/05/19 07:06 PT 12.3 secs (9.9-12.6) 09/04/19 18:42 INR 1.1 (0.8-1.2) 09/04/19 18:42 APTT 27.7 secs (24.9-33.3) 09/04/19 18:42 Sodium 138 mmol/L (135-145) 09/05/19 15:10 Potassium 4.1 mmol/L (3.5-5.0) 09/05/19 15:10 Chloride 111 mmol/L (101-111) 09/05/19 15:10 Carbon Dioxide 19 mmol/L (21-32) L 09/05/19 15:10 Anion Gap 8.0 (6-13) 09/05/19 15:10 BUN 47 mg/dL (6-20) H 09/05/19 15:10 Creatinine 2.3 mg/dL (0.4-1.0) H 09/05/19 15:10 Estimated GFR (MDRD) 20 (>89) L 09/05/19 15:10 Glucose 119 mg/dL (70-100) H 09/05/19 15:10 Calcium 8.7 mg/dL (8.5-10.3) 09/05/19 15:10 Magnesium 2.0 mg/dL (1.7-2.8) 09/04/19 18:42 Total Bilirubin 1.4 mg/dL (0.2-1.0) H 09/04/19 18:42 AST 37 IU/L (10-42) 09/04/19 18:42 ALT 17 IU/L (10-60) 09/04/19 18:42 Alkaline Phosphatase 43 IU/L (42-121) 09/04/19 18:42 Total Creatine Kinase 560 IU/L (22-269) H 09/05/19 15:10 Troponin I High Sens 88.2 ng/L (2.3-14.8) H* 09/05/19 07:06 Total Protein 6.6 g/dL (6.7-8.2) L 09/04/19 18:42 Albumin 3.6 g/dL (3.2-5.5) 09/04/19 18:42 Globulin 3.0 g/dL (2.1-4.2) 09/04/19 18:42 Albumin/Globulin Ratio 1.2 (1.0-2.2) 09/04/19 18:42 Lipase 24 U/L (22-51) 09/04/19 18:42 Sepsis Event Note (H) - Evaluation Current Stage of Sepsis: Ruled out ABX Reporting Has patient been on IV antibiotics over the past 48 hours?: No Current Medications - Current Medications Current Medications: Active Medications Acetaminophen (Tylenol) 650 mg PO Q4HR PRN PRN Reason: Pain 1 to 4 Hydrocodone Bitart/Acetaminophen ([place] 5/325) 1 tab PO Q4HR PRN PRN Reason: PAIN Last Admin: 09/05/19 16:04 Dose: 1 tab Alprazolam (Xanax) 0.25 mg PO TID PRN PRN Reason: Anxiety Clonidine HCl (Catapres) 0.1 mg PO BID PRN PRN Reason: Hypertensive Emergency Clopidogrel Bisulfate (Plavix) 75 mg PO DAILY COUNTS INCLUDE 234 BEDS AT THE [facility] Heparin Sodium (Porcine) () 2,500 unit SUBQ BID COUNTS INCLUDE 234 BEDS AT THE [facility] Last Admin: 09/05/19 11:13 Dose: 2,500 unit Hydralazine HCl (Apresoline Inj) 10 mg IVP Q4H PRN PRN Reason: PER PHYSICIAN ORDER Last Admin: 09/05/19 16:05 Dose: 10 mg Sodium Chloride (Normal Saline 0.9%) 1,000 mls @ 125 mls/hr IV .Q8H COUNTS INCLUDE 234 BEDS AT THE [facility] Last Admin: 09/05/19 15:12 Dose: 125 mls/hr Levothyroxine Sodium (Synthroid) 100 mcg PO QDAC COUNTS INCLUDE 234 BEDS AT THE [facility] Losartan Potassium (Cozaar) 50 mg PO DAILY COUNTS INCLUDE 234 BEDS AT THE [facility] Prazosin HCl (Minipress) 1 mg PO BID COUNTS INCLUDE 234 BEDS AT THE [facility] Sodium Chloride (Normal Saline Flush 0.9%) 10 ml IVP PRN PRN PRN Reason: NEEDED PER PROVIDER ORDERS Sodium Chloride (Normal Saline Flush 0.9%) 10 ml IVP 0100,0900,1700 JOSH Last Admin: 09/05/19 16:05 Dose: 10 ml ALPRAZolam [Alprazolam] 0.25 mg PO TID PRN 09/05/19 Clopidogrel [Plavix] 75 mg PO DAILY 09/05/19 Gabapentin 300 mg PO QPM 09/05/19 Levothyroxine [Synthroid] 100 mcg PO QDAC 09/05/19 Losartan Potassium [Cozaar] 50 mg PO DAILY 09/05/19 Prazosin [Minipress] 1 mg PO BID 09/05/19 Simvastatin 20 mg PO QPM 09/05/19
[2019-09-05] MEDS: LOSARTAN 50 MG TABLET PO SCH (18:44)
[2019-09-05] MEDS: LEVOTHYROXINE 100 MCG TABLET PO SCH (18:44)
[2019-09-05] MEDS: PRAZOSIN 1 MG CAPSULE PO SCH (20:41)
[2019-09-05] MEDS ORDERED: GABAPENTIN 300 MG CAPSULE PO SCH ×2 (21:00)
[2019-09-06] MEDS: SODIUM CHLORIDE FLUSH 0.9% 10 ML SYRINGE IVP SCH ×2 (02:21→10:28)
[2019-09-06 05:24] LABS: BASOPHILS % (AUTO) 0.7 %; EOSINOPHILS # (AUTO) 0.2 10^3/uL (0.0-0.7); EOSINOPHILS % (AUTO) 4.7 %; HGB - HEMOGLOBIN 9.7 g/dL (12.0-16.0); LYMPHOCYTES # (AUTO) 0.7 10^3/uL (1.5-3.5); LYMPHOCYTES % (AUTO) 14.6 %; MEAN CORPUSCULAR HEMOGLOBIN 28.3 pg (27.0-31.0); MEAN CORPUSCULAR VOLUME 91.3 fL (81.0-99.0); MEAN PLATELET VOLUME 11.5 fL (7.9-10.8); MONOCYTES # (AUTO) 0.3 10^3/uL (0.0-1.0); MONOCYTES % (AUTO) 5.5 %; NEUTROPHILS # (AUTO) 3.4 10^3/uL (1.5-6.6); NEUTROPHILS % (AUTO) 74.3 %; PLT - PLATELET COUNT 191 10^3/uL (130-450); RED BLOOD COUNT 3.43 10^6/uL (4.20-5.40); RED CELL DISTRIBUTION WIDTH 15.5 % (12.0-15.0); WHITE BLOOD COUNT 4.5 x10^3/uL (4.8-10.8)
[2019-09-06 05:28] LABS: CALCIUM 8.1 mg/dL (8.5-10.3); CREATININE 1.9 mg/dL (0.4-1.0)
[2019-09-06 06:58] LABS: BILIRUBIN,URINE NEGATIVE (NEGATIVE); GLUCOSE, URINE (UA) NEGATIVE (NEGATIVE); KETONES,URINE (UA) NEGATIVE (NEGATIVE); LEUKOCYTE ESTERASE, URINE NEGATIVE (NEGATIVE); NITRITE,URINE POSITIVE (NEGATIVE); OCCULT BLOOD,URINE NEGATIVE (NEGATIVE); PROTEIN,URINE NEGATIVE (NEGATIVE); UROBILINOGEN,URINE 0.2 (NORMAL) E.U./dL (NORMAL)
[2019-09-06 06:59] LABS: CLARITY,URINE HAZY (CLEAR)
[2019-09-06 07:05] LABS: BACTERIA,URINE Many /HPF (None Seen); RBC,URINE 0-5 /HPF (0-5); SQUAMOUS EPITHELIAL CELL,UR MOD Squamous (<= Few)
[2019-09-06] MEDS ORDERED: SODIUM CHLORIDE 0.9% 1,000 ML IV SCH (08:04)
[2019-09-06 08:17] LABS: ABSOLUTE RETICS # AUTO 0.052 10^6/uL (0.020-0.110); RED BLOOD COUNT 3.45 10^6/uL (4.20-5.40)
[2019-09-06 08:21] LABS: % IRON SATURATION 50 % (20-50); IRON 76 ug/dL (28-170); TOTAL IRON BINDING CAPACITY 151 ug/dL (250-450); TRANSFERRIN 108 mg/dL (192-382)
[2019-09-06 08:56] LABS: FERRITIN 207.7 ng/mL (11.0-306.8)
[2019-09-06] MEDS ORDERED: CLOPIDOGREL 75 MG TABLET PO SCH (09:00)
[2019-09-06] MEDS ORDERED: DOCUSATE SODIUM 250 MG CAPSULE PO SCH (09:00)
[2019-09-06] MEDS ORDERED: SENNA 8.6 MG TABLET PO SCH (09:00)
[2019-09-06] MEDS ORDERED: POLYETHYLENE GLYCOL 3350 17 GM PACKET PO SCH (09:00)
[2019-09-06 09:05] LABS: BILIRUBIN,URINE NEGATIVE (NEGATIVE); GLUCOSE, URINE (UA) NEGATIVE (NEGATIVE); KETONES,URINE (UA) NEGATIVE (NEGATIVE); LEUKOCYTE ESTERASE, URINE NEGATIVE (NEGATIVE); NITRITE,URINE POSITIVE (NEGATIVE); OCCULT BLOOD,URINE LARGE (NEGATIVE); PROTEIN,URINE NEGATIVE (NEGATIVE); UROBILINOGEN,URINE 0.2 (NORMAL) E.U./dL (NORMAL)
[2019-09-06 09:06] LABS: CLARITY,URINE HAZY (CLEAR)
[2019-09-06] MEDS ORDERED: CYANOCOBALAMIN 1,000 MCG/ML VIAL IM ONE (09:14)
[2019-09-06 09:25] LABS: BACTERIA,URINE Many /HPF (None Seen); SQUAMOUS EPITHELIAL CELL,UR FEW Squamous (<= Few)
--- NOTE | 2019-09-06 10:22 | Ultrasound Report ---
Reason: oligouria Procedure Date: 09/06/2019 Accession Number: [id number] / [id number] Procedure: US - Retroperitoneal CPT Code: Final Report FULL RESULT: EXAM: RENAL ULTRASOUND EXAM DATE: 09/06/2019 09:56 AM. CLINICAL HISTORY: Oliguria. COMPARISON: None. TECHNIQUE: Real-time scanning was performed with static images obtained. FINDINGS: Right Kidney: 8.3 x 4.4 x 4.9 cm. Normal echotexture with no stones, contour-deforming masses, or hydronephrosis. Left Kidney: 8.9 x 4.7 x 5.1 cm. Normal echotexture with no stones, contour-deforming masses, or hydronephrosis. There are several left renal cysts. Bladder: Right ureteral jet was not seen. Prevoid bladder demonstrates no significant abnormalities. Other: None. IMPRESSION: Negative renal ultrasound. The kidneys demonstrate no evidence of hydronephrosis. RADIA
[2019-09-06] MEDS: PRAZOSIN 1 MG CAPSULE PO SCH (10:50)
[2019-09-06] MEDS: LEVOTHYROXINE 100 MCG TABLET PO SCH (10:50)
[2019-09-06] MEDS: LOSARTAN 50 MG TABLET PO SCH (10:51)
[2019-09-06] MEDS ORDERED: cefTRIAXone 1 GM in SODIUM CHLORIDE 0.9% MINIBAG 100 ML IV SCH (11:00)
[2019-09-06] MEDS: HYDROcod/ACETAM 5/325 MG TABLET PO PRN (11:08)
--- NOTE | 2019-09-06 11:45 | ADVANCE CARE PLANNING NOTE ---
Advance Care Planning - Planning Encounter Date: 09/06/19 Time: 11:43 Purpose: advance care for pt Parties in Attendance: pt and me Decisional Capacity of the Patient: pt is alert and oriented, and she has the capacity to make the her own decision. - Diagnosis for Encounter (1) Syncope Qualifiers: Syncope type: unspecified Qualified Code(s): R55 - Syncope and collapse (2) Rhabdomyolysis Qualifiers: Rhabdomyolysis type: traumatic Encounter type: initial encounter Qualified Code(s): T79.6XXA - Traumatic ischemia of muscle, initial encounter (7) Osteoarthritis of right knee Qualifiers: Osteoarthritis type: primary Qualified Code(s): M17.11 - Unilateral primary osteoarthritis, right knee - Encounter Subjective/Patient's Story: pt report she has been poor appetite for quite long time. she did think her poor input was contributed to her fall. she report she followup her kidney doctor as regular base. she also report she had shingle around her left eye starting couple of weeks ago and she followup her eye doctor for that. she report She had 5 children. a son from alcoholic liver cirrhosis and a daughter from breast cancer. She has 3 living children. her one years ago, she missed him very much. she still think her has been still living at his room and company with her. she state clearly she will never go to nurse home or SNF. she want to stay in her home where she inherited from her parents in law for whole her life until the day she will meet her again. she would like to continue DNR/DNI as her code status. Objective/Medical Story: pt did have multiple medical problems, chronic renal failure at stage 4 and followup her tub puller as her regular base, poor nutrition and poor appetite, fall at home, recently syncope, UTI, HTN uncontrolled, weakness, chronic knee pain, recently shingles. Goals of Care: has advanced care plan for her Plan: keep the same code status, DNR/DNI, followup outpt PT/OT Code Status: Do Not Attempt Resuscitation Time spent on advance care plannin
[2019-09-06] MEDS ORDERED: CYANOCOBALAMIN 1,000 MCG/ML VIAL IM SCH (12:00)
[2019-09-06 12:40] VITALS: BP 133/41
--- NOTE | 2019-09-06 13:02 | Discharge Plan ---
Discharge Plan Problem Reviewed?: Yes Disposition: 06 Home Health Service Condition: Stable Prescriptions: Cephalexin [Keflex] 250 mg PO BID #12 capsule Saccharomyces Boulardii [Florastor] 250 mg PO DAILY #6 capsule Diet: Regular Activity Restrictions: Activity as Tolerated Shower Restrictions: No (fall precaution, caregiver closely monitor) Instruction Topics: Cephalexin tablets or capsules Health Concerns: fall, UTI Plan of Treatment: discussed with you about fall prevention, advise you keep hydration and good nutrition, take medications as the schedule, standup and talk slowly. Home health PT and AIDe are arranged for you. you are found to have UTI. Antibiotics is prescribed for you to finish the treatment course. Care Goals: fall prevention. stabilization and improvement of your medical conditions. Assessment: discussed with you and your family about your care plan, and you understood the plan. Additional Instructions or Follow Up instructions: you may followup your PCP in one week, followup your kidney doctor and opht halmologist as your schedule. should your symptoms return or worsen, you may present ER or call 911 for help. Follow-Up Care: Home Health - PT No Smoking: If you smoke, Please STOP! Call for help. Follow-up with: Nancy Tran MD [Primary Care Provider] -
--- NOTE | 2019-09-06 13:12 | DISCHARGE SUMMARY ---
Discharge Summary Admit Date: 09/04/19 Discharge Date: 09/06/19 Discharging Provider: GLORIA Primary Care Provider: Dr. Tran Condition at Discharge: Stable Discharge Disposition: Home Health Service Discharge Facility Name: home - DIAGNOSES Admission Diagnoses: (1) Syncope (2) Dehydration (3) Rhabdomyolysis (4) Acute on chronic renal insufficiency (5) Hypertensive urgency (6) Osteoarthritis of right knee (7) Elevated troponin Discharge Diagnoses with Status of Each Condition: (1) Syncope stable. pt has no syncope episode in hospital. it is likely caused by pt's dehydration and poor appetite. pt was consulted with mental health nurse practitioner. Now both hydration and dietary eating are significant improved. pt's ECHO is unremarkable (2) Dehydration resolved. pt was advised how to prevent of dehydration (3) Rhabdomyolysis resolved. CK is close to normal. kidney function is better than her baseline (4) Acute on chronic renal insufficiency resolved. creatinine is 1.9 at d/c, is better than her baseline 2.4. advise pt followup her hearings reporter Dr. Fowler closely (5) Hypertensive urgency resolved (6) Osteoarthritis of right knee stable (7) Elevated troponin stable/resolved. slight elevated troponin is likely caused by pt's dehydration. pt denies any chest pain.EKG has no acute ST variation. ECHO is unremarkable (8)Orthostatic hypotension positive for orthostatic hypotension change. pt was educated several times for how to prevent of fall, reduction of orthostatic hypotension with hydration. pt state she understood. pt was also consulted with PT. home health PT and [facility] was arranged for pt (9) fall pt has no fall in hospital. pt was educated several times for how to prevent of fall, reduction of orthostatic hypotension with hydration. pt state she understood. pt was also consulted with PT. home health PT and [facility] was arranged for pt (10) hx of shingles pt has no acute shingles in hospital. pt had shingles at couple of weeks ago per pt report. pt is following up her filter press tender. (11)UTI pt was treated with antibiotics and prescribed antibiotics for d/c - HPI History of Present Illness: refer from Dr. Herbert's HPI on 09/04/19 Patient is an 84 y/o female who was brought in by her granddaughter after she was found face down today around 5pm. She was doing alright 2 days ago (tuesday night). She reports going to the bathroom. Things felt funny when she got off the toilet. She does not remember anything afterwards. Her son Ismael who is DPOA [phone] recalls that she called him at midnight on Tuesday asking him not to pick her up the following day because she was not going to make her hair appointment. She had on scheduled. He reports that as being unusual because she never calls at midnight. She has a pet parrot whose cage is usually cover with a cloth before bedtime. When her granddaughter arrived and found her, the cage was still covered so she estimates she would have been laying there for at least 12- 18 hours. The patient denies any chest pain, dyspnea, abd pain, fever or chills. She recently completed antiviral treatment (acyclovir) for shingles. She is on gabapentin as part of treatment. She has bilateral dustin-orbital puffiness and redness. Her skin is very thin Lab work showed a CK of 902, Trop 84, Creatinine 2.7. Baseline is 2.4. She was also found to have a SBP of 206 in the ED. As a result of the above she is being admitted for further treatment. - HOSPITAL COURSE Hospital Course: pt was admitted for syncope and fall. Her image studies of CT of head, cervical spine, Xray of chest and knee were unremarkable. ECHO was unremarkable. pt was found to have significant dehydration, and elevated CK. pt was found to have UTI. pt was evaluated and treated with PT. after pt was hydration, and treated with antibiotics, pt's kidney function was significant improved. CK is down to closely normal. pt walked with PT. the detail hospital course is as the below. (1) Syncope stable. pt has no syncope episode in hospital. it is likely caused by pt's dehydration and poor appetite. pt was consulted with mental health nurse practitioner. Now both hydration and dietary eating are significant improved. pt's ECHO is unremarkable (2) Dehydration resolved. pt was advised how to prevent of dehydration (3) Rhabdomyolysis resolved. CK is close to normal. kidney function is better than her baseline (4) Acute on chronic renal insufficiency resolved. creatinine is 1.9 at d/c, is better than her baseline 2.4. advise pt followup her hearings reporter Dr. Fowler closely (5) Hypertensive urgency resolved (6) Osteoarthritis of right knee stable (7) Elevated troponin stable/resolved. slight elevated troponin is likely caused by pt's dehydration. pt denies any chest pain.EKG has no acute ST variation. ECHO is unremarkable (8)Orthostatic hypotension positive for orthostatic hypotension change. pt was educated several times for how to prevent of fall, reduction of orthostatic hypotension with hydration. pt state she understood. pt was also consulted with PT. home health PT and [facility] was arranged for pt (9) fall pt has no fall in hospital. pt was educated several times for how to prevent of fall, reduction of orthostatic hypotension with hydration. pt state she unders tood. pt was also consulted with PT. home health PT and [facility] was arranged for pt (10) hx of shingles pt has no acute shingles in hospital. pt had shingles at couple of weeks ago per pt report. pt is following up her filter press tender. (11)UTI pt was treated with antibiotics and prescribed antibiotics for d/c - ALLERGIES Allergies/Adverse Reactions: Allergies Allergy/AdvReac Type Severity Reaction Status Date / Time No Known Drug Allergies Allergy Verified 09/04/19 18:41 - MEDICATIONS Home Medications: Ambulatory Orders Medication Instructions Recorded Confirmed ALPRAZolam [Alprazolam] 0.25 mg PO TID PRN 09/05/19 09/05/19 Clopidogrel [Plavix] 75 mg PO DAILY 09/05/19 09/05/19 Gabapentin 300 mg PO QPM 09/05/19 09/05/19 Levothyroxine [Synthroid] 100 mcg PO QDAC 09/05/19 09/05/19 Losartan Potassium [Cozaar] 50 mg PO DAILY 09/05/19 09/05/19 Prazosin [Minipress] 1 mg PO BID 09/05/19 09/05/19 Simvastatin 20 mg PO QPM 09/05/19 09/05/19 Cephalexin [Keflex] 250 mg PO BID #12 capsule 09/06/19 Saccharomyces Boulardii [Florastor] 250 mg PO DAILY #6 capsule 09/06/19 - PHYSICAL EXAM AT DISCHARGE General Appearance: positive: No acute distress, Alert. negative: Lethargic Eyes Bilateral: positive: Normal inspection, PERRL, EOMI, No lid inflammation ENT: positive: ENT inspection nml, Pharynx nml, No signs of dehydration. negative: Purulent nasal drainage Neck: positive: Nml inspection, Thyroid nml, No JVD, Trachea midline. negative: Thyromegaly, Lymphadenopathy (R), Lymphadenopathy (L), Stiff neck, Tracheal deviation Respiratory: positive: Chest non-tender, No respiratory distress, Breath sounds nml. negative: Wheezes, Rales, Rhonchi Cardiovascular: positive: Regular rate & rhythm, No murmur, No gallop. negative: Irregularly irregular, Extrasystoles, Tachycardia, Bradycardia, JVD present, Systolic murmur, Diastolic murmur Peripheral Pulses: positive: 2+ Abdomen: positive: Non-tender, No organomegaly, Nml bowel sounds, No distention. negative: Tenderness, Guarding, Rebound Back: positive: Nml inspection. negative: CVA tenderness (R), CVA tenderness (L) Skin: positive: Color nml, No rash, Warm, Dry. negative: Cyanosis, Diaphoresis, Pallor Extremities: positive: Non-tender, Full ROM, Nml appearance. negative: Calf tenderness, Mehreen's sign/cords Neurologic/Psychiatric: positive: Oriented x3, Motor nml, Sensation nml, Mood/affect nml. negative: Weakness, Sensory loss, Facial droop, Slurred/abnml speech, Depressed mood/affect - LABS Result Diagrams: 09/06/19 04:55 09/06/19 04:55 - SEPSIS Current Stage of Sepsis: Ruled out - FOLLOW UP Follow Up: discussed with you about fall prevention, advise you keep hydration and good nutrition, take medications as the schedule, standup and talk slowly. Home health PT and [facility] are arranged for you. you are found to have UTI. Antibiotics is prescribed for you to finish the treatment course. you may followup your PCP in one week, followup your kidney doctor and filter press tender as your schedule. should your symptoms return or worsen, you may present ER or call 911 for help. - TIME SPENT Time Spent in Discharge (Minutes): 50
== END 2019-09-06 15:22 | disposition home health service (06) | DRG 312 ==
LOC: ED 18:31 → MS2 20:45
PROVIDERS: ADMIT Internal Medicine; ATTEND Nurse Practitioner Gerontology
DX: I95.1 Orthostatic hypotension (principal); N18.4 Chronic kidney disease, stage 4 (severe); N39.0 Urinary tract infection, site not specified; R55 Syncope and collapse; R11.0 Nausea; E86.0 Dehydration; R42 Dizziness and giddiness; R53.83 Other fatigue; T42.6X5A Adverse effect of other antiepileptic and sedative-hypnotic drugs, initial encounter; I16.0 Hypertensive urgency; I12.9 Hypertensive chronic kidney disease with stage 1 through stage 4 chronic kidney disease, or unspecified chronic kidney disease; N18.9 Chronic kidney disease, unspecified; T79.6XXA Traumatic ischemia of muscle, initial encounter; M47.812 Spondylosis without myelopathy or radiculopathy, cervical region; M17.0 Bilateral primary osteoarthritis of knee; W18.30XA Fall on same level, unspecified, initial encounter; Y92.002 Bathroom of unspecified non-institutional (private) residence as the place of occurrence of the external cause; I35.1 Nonrheumatic aortic (valve) insufficiency; B02.9 Zoster without complications; M17.11 Unilateral primary osteoarthritis, right knee; G89.29 Other chronic pain; R63.0 Anorexia; Z66 Do not resuscitate; Z79.899 Other long term (current) drug therapy; Z79.02 Long term (current) use of antithrombotics/antiplatelets; Z91.81 History of falling; Z68.29 Body mass index [BMI] 29.0-29.9, adult
CPT/HCPCS: 36415; 70450; 71045; 72125; 73562; 76770; 80048; 80053; 81001; 82550; 82607; 82728; 83540; 83615; 83690; 83735; 84443; 84466; 84484; 85025; 85045; 85610; 85730; 87086; 87181; 90686; 93005; 93306; 96360; 97116; 97161; 99284; 99285; A9270; J3490; 81003

== ENCOUNTER 2019-09-07 15:46 | Outpatient (CLI) | payer MEDICARE | END 2019-09-07 15:47 | disposition short-term general hospital (02) | LOC: EMS 15:46 | PROVIDERS: ATTEND Surgery | DX: M25.551 Pain in right hip (principal); M25.561 Pain in right knee; R11.0 Nausea | CPT/HCPCS: A0425; A0427 ==

== ENCOUNTER 2019-09-07 16:08 | Inpatient (IN) | payer MEDICARE ==
[2019-09-07] MEDS ORDERED: SODIUM CHLORIDE 0.9% 1,000 ML IV ONE (16:18)
--- NOTE | 2019-09-07 16:21 | ED Physician Documentation ---
PD HPI LOWER EXT INJURY - Stated complaint Stated Complaint: R HIP PX - Chief complaint Chief Complaint: Ext Problem - History obtained from History obtained from: Patient, EMS - History of Present Illness PD HPI LOW EXT INJURY LOCATION: Right (This is an 84-year-old woman who lives alone but is frequently visited by family. She has a history of knee osteoarthritis. She was admitted a few nights ago for rhabdomyolysis and acute renal insufficiency. Sounds like she is been pretty much bedbound since discharge, and today had much more severe right hip pain. She has been constipated since she left probably from taking pain medications, she has been on tramadol and hydrocodone which have been insufficient. She also has a little bit of a cough and is feeling very weak. On the way here she had 10 mg of morphine and feels better from a pain perspective.) Review of Systems Ten Systems: 10 systems reviewed and negative Constitutional: reports: Chills. denies: Fever Nose: denies: Rhinorrhea / runny nose, Congestion Throat: denies: Sore throat Cardiac: denies: Chest pain / pressure, Palpitations Respiratory: reports: Cough. denies: Dyspnea GI: reports: Abdominal Pain, Constipation. denies: Nausea, Vomiting Skin: denies: Rash PD PAST MEDICAL HISTORY - Past Medical History Cardiovascular: Hypertension Respiratory: None Neuro: None Endocrine/Autoimmune: None GI: None WELLNESS COACH: None : None HEENT: None Psych: None Musculoskeletal: Osteoarthritis, Other Derm: None - Present Medications Home Medications: Ambulatory Orders Medication Instructions Recorded Confirmed ALPRAZolam [Alprazolam] 0.25 mg PO TID PRN 09/05/19 09/05/19 Clopidogrel [Plavix] 75 mg PO DAILY 09/05/19 09/05/19 Gabapentin 300 mg PO QPM 09/05/19 09/05/19 Levothyroxine [Synthroid] 100 mcg PO QDAC 09/05/19 09/05/19 Losartan Potassium [Cozaar] 50 mg PO DAILY 09/05/19 09/05/19 Prazosin [Minipress] 1 mg PO BID 09/05/19 09/05/19 Simvastatin 20 mg PO QPM 09/05/19 09/05/19 Cephalexin [Keflex] 250 mg PO BID #12 capsule 09/06/19 Saccharomyces Boulardii [Florastor] 250 mg PO DAILY #6 capsule 09/06/19 - Allergies Allergies/Adverse Reactions: Allergies Allergy/AdvReac Type Severity Reaction Status Date / Time No Known Drug Allergies Allergy Verified 09/07/19 16:16 - Living Situation Living Situation: reports: Alone - Social History Does the pt smoke?: No Smoking Status: Never smoker Does the pt drink ETOH?: No Does the pt have substance abuse?: No - Immunizations Immunizations: TDAP >10years/unknown - POLST Patient has POLST: No POLST Status: DNR PD ED PE NORMAL - Vitals Vital signs reviewed: Yes - General General: Alert and oriented X 3, No acute distress - HEENT HEENT: PERRL, EOMI - Neck Neck: Supple, no meningeal sign, No bony TTP - Cardiac Cardiac: RRR, No murmur - Respiratory Respiratory: No respiratory distress, Clear bilaterally - Abdomen Abdomen: Non tender - Extremities Extremities: Other (The right hip and knee are quite tender, more so the knee than hip. No deformity. There is a moderate effusion of the right knee) - Neuro Neuro: Alert and oriented X 3, Normal speech Results - Vitals Vitals: Vital Signs - 24 hr 09/07/19 09/07/19 09/07/19 16:11 16:55 17:38 Temperature 38.2 C H Heart Rate 67 56 L 66 Respiratory 16 18 18 Rate Blood Pressure 182/51 H 158/44 H 161/45 H O2 Saturation 100 99 100 Oxygen O2 Source Room air - Labs Labs: Laboratory Tests 09/07/19 09/07/19 09/07/19 16:43 16:43 16:43 WBC 4.6 L RBC 3.47 L Hgb 10.0 L Hct 33.0 L MCV 95.1 MCH 28.8 MCHC 30.3 L RDW 15.7 H Plt Count 203 MPV 10.9 H Neut # (Auto) 3.7 Lymph # (Auto) 0.5 L [place] # (Auto) 0.3 Eos # (Auto) 0.1 Baso # (Auto) 0.0 Absolute Nucleated RBC 0.00 Nucleated RBC % 0.0 Sodium 141 Potassium 4.0 Chloride 116 H Carbon Dioxide 19 L Anion Gap 6.0 BUN 35 H Creatinine 1.9 H Estimated GFR (MDRD) 25 L Glucose 97 Lactic Acid 1.0 Calcium 8.3 L Total Bilirubin 0.9 AST 23 ALT 15 Alkaline Phosphatase 36 L Total Creatine Kinase 311 H Total Protein 5.6 L Albumin 2.9 L Globulin 2.7 Albumin/Globulin Ratio 1.1 Lipase 24 PD MEDICAL DECISION MAKING - ED course ED course: 84-year-old woman presents after being discharged yesterday. She has a fever, cough. She is quite weak a two-person assist. Found to have a retrocardiac pneumonia. Urine pending on admission, might also be recalcitrant/resistant UTI. Spoke with Dr. Diaz for admission. Administered cefepime and azithromycin for the pneumonia. Departure - Departure Disposition: 66 [facility] DC/Xfer Clinical Impression: Acute on chronic renal insufficiency Pneumonia Qualifiers: Pneumonia type: due to unspecified organism Laterality: left Lung location: lower lobe of lung Qualified Code(s): J18.9 - Pneumonia, unspecified organism Condition: Serious
[2019-09-07 16:53] LABS: BASOPHILS % (AUTO) 0.4 %; EOSINOPHILS # (AUTO) 0.1 10^3/uL (0.0-0.7); EOSINOPHILS % (AUTO) 2.8 %; LYMPHOCYTES # (AUTO) 0.5 10^3/uL (1.5-3.5); LYMPHOCYTES % (AUTO) 10.9 %; MEAN CORPUSCULAR HEMOGLOBIN 28.8 pg (27.0-31.0); MEAN CORPUSCULAR HGB CONC 30.3 g/dL (32.0-36.0); MEAN CORPUSCULAR VOLUME 95.1 fL (81.0-99.0); MEAN PLATELET VOLUME 10.9 fL (7.9-10.8); MONOCYTES # (AUTO) 0.3 10^3/uL (0.0-1.0); MONOCYTES % (AUTO) 5.4 %; NEUTROPHILS # (AUTO) 3.7 10^3/uL (1.5-6.6); NEUTROPHILS % (AUTO) 80.3 %; PLT - PLATELET COUNT 203 10^3/uL (130-450); RED BLOOD COUNT 3.47 10^6/uL (4.20-5.40); RED CELL DISTRIBUTION WIDTH 15.7 % (12.0-15.0); WHITE BLOOD COUNT 4.6 x10^3/uL (4.8-10.8)
[2019-09-07 17:03] LABS: ALBUMIN 2.9 g/dL (3.2-5.5); ALBUMIN/GLOBULIN RATIO 1.1 (1.0-2.2); BILIRUBIN,TOTAL 0.9 mg/dL (0.2-1.0); CALCIUM 8.3 mg/dL (8.5-10.3); CREATININE 1.9 mg/dL (0.4-1.0); TOTAL PROTEIN 5.6 g/dL (6.7-8.2)
--- NOTE | 2019-09-07 17:08 | XRAY Report ---
Reason: hip pain Procedure Date: 09/07/2019 Accession Number: [id number] / [id number] Procedure: XR - Hip w/Pelvis 2-3V RT CPT Code: Final Report FULL RESULT: EXAM: RIGHT HIP RADIOGRAPHY EXAM DATE: 09/07/2019 04:39 PM. CLINICAL HISTORY: Hip pain. COMPARISON: XR HIP UNILAT MIN 2 VIEW 09/07/2010 10:38 AM. TECHNIQUE: 2 views. FINDINGS: Bones: Normal. No fractures or bone lesion. Joints: Mild joint space narrowing. Normal alignment. There are also degenerative changes involving the sacroiliac joints and lower lumbar spine. Soft Tissues: Normal. No soft tissue swelling. IMPRESSION: No fracture or dislocation. Mild degenerative changes. RADIA
--- NOTE | 2019-09-07 17:15 | XRAY Report ---
Reason: cough feverq Procedure Date: 09/07/2019 Accession Number: [id number] / [id number] Procedure: XR - Chest 1 View X-Ray CPT Code: 14814 Final Report FULL RESULT: EXAM: CHEST RADIOGRAPHY EXAM DATE: 09/07/2019 04:52 PM. CLINICAL HISTORY: Cough, fever. COMPARISON: CHEST 1 VIEW 09/04/2019 7:35 PM. TECHNIQUE: 1 view. FINDINGS: Lungs/Pleura: There is pulmonary vascular congestion without overt edema. Retrocardiac opacity also seen obscuring the left hemidiaphragm. No pneumothorax. Mediastinum: Within exam limitations, the cardiomediastinal contour is normal. Other: None. IMPRESSION: 1. Pulmonary venous congestion without overt edema. 2. Retrocardiac opacity likely secondary to partial left lower lobe atelectasis and/or infiltrate versus pleural effusion. RADIA
[2019-09-07] MEDS ORDERED: CEFEPIME 2 GM in SODIUM CHLORIDE 0.9% MINIBAG 100 ML IV STA (17:39)
[2019-09-07] MEDS ORDERED: AZITHROMYCIN INJ 500 MG in SODIUM CHLORIDE 0.9% 250 ML IV STA (17:39)
[2019-09-07] MEDS ORDERED: MORPHINE 2 MG/ML CARPUJECT IVP STA (17:49)
[2019-09-07] MEDS ORDERED: ONDANSETRON 4 MG/2 ML VIAL IVP PRN (18:21)
[2019-09-07] MEDS ORDERED: MORPHINE 2 MG/ML CARPUJECT IVP PRN (18:21)
--- NOTE | 2019-09-07 18:42 | HISTORY & PHYSICAL EXAMINATION ---
Chief Complaint - Chief Complaint Chief Complaint: Weakness and right hip pain History of Present Illness - Admitted From Admitted From:: Home - History Obtained From Records Reviewed: Yes History obtained from: Patient, Family, ER Physician, EMR - History of Present Illness HPI Comment/Other: This is a 84-year-old female with a past medical history significant for hypothyroidism, chronic renal insufficiency, hypertension, osteoarthritis who presents today complaining of right sided hip pain and generalized weakness. She was just discharged in the hospital yesterday after being admitted for syncope and fall. She is found to have rhabdomyolysis and acute kidney injury which responded well to IV fluids. She was also found to have a urinary tract infection and discharged on Keflex. She worked with physical therapy during that hospitalization and was able to ambulate with a walker and she was discharged home yesterday. Her family states that since she has been home, she has had difficulty ambulating and has been very weak. She woke up today at around noon and could barely get the side of the bed. Physical therapy evaluated the patient at home and the patient was unable to participate due to the weakness and right hip pain. She has been taking Tylenol without improvement in the pain. She states her pain began after the fall she had about 1 week ago. She does have chronic severe osteoarthritis of both of her knees and a total knee replacement was recommended but due to her health, she has not proceeded with surgery. A day she is complaining of chills and a nonproductive cough. She reports no dyspnea or chest pain. She denies fever although the patient's family felt she was a little warm today. She reports no nausea or vomiting. She has been constipated at times has not had a bowel movement since discharge. In the emergency department, she is found to be febrile with temperature of 38.2. Her heart rate was in the 50s, she was not tachypneic and saturating 99% on room air. She was also hypertensive with a systolic blood pressure in the 150s. Her labs revealed a white count of 4.6 which is stable compared to discharge. Her creatinine was at 1.9 which is also stable since discharge. Her CK's are in the low 300's which is improved. A chest x-ray was concerning for a new left sided infiltrate. An x-ray of the right hip did not reveal a fracture. Given her fever and concern for pneumonia, medicine was consulted for admission. I did speak with the patient and her family regarding goals of care and she would like to be a DNR. She is agreeable to a senior living facility on discharge if necessary. History - Past Medical History Cardiovascular: reports: Hypertension Respiratory: reports: None Neuro: reports: None Endocrine/Autoimmune: reports: HyPOthyroidism GI: reports: None SPEECH COACH: reports: None : reports: None HEENT: reports: None Psych: reports: None Musculoskeletal: reports: Osteoarthritis Derm: reports: None MRSA Hx?: No - Family & Social History Family History Comment/Other: She reports no known family history in her parents. She does have 5 children and one son from liver cirrhosis and a daughter from breast cancer. She is an only child. Living arrangement: At home Living Situation: Alone Social History Notes: She lives at home alone. She does not smoke or use alcohol. - POLST Patient has POLST: No POLST Status: DNR Meds/Allgy - Home Medications Home Medications: Ambulatory Orders Medication Instructions Recorded Confirmed ALPRAZolam [Alprazolam] 0.25 mg PO TID PRN 09/05/19 09/05/19 Clopidogrel [Plavix] 75 mg PO DAILY 09/05/19 09/05/19 Gabapentin 300 mg PO QPM 09/05/19 09/05/19 Levothyroxine [Synthroid] 100 mcg PO QDAC 09/05/19 09/05/19 Losartan Potassium [Cozaar] 50 mg PO DAILY 09/05/19 09/05/19 Prazosin [Minipress] 1 mg PO BID 09/05/19 09/05/19 Simvastatin 20 mg PO QPM 09/05/19 09/05/19 Cephalexin [Keflex] 250 mg PO BID #12 capsule 09/06/19 Saccharomyces Boulardii [Florastor] 250 mg PO DAILY #6 capsule 09/06/19 - Allergies Allergies/Adverse Reactions: Allergies Allergy/AdvReac Type Severity Reaction Status Date / Time No Known Drug Allergies Allergy Verified 09/07/19 16:16 Review of Systems - Constitutional Constitutional: reports: Fatigue, Chills, Weakness. denies: Fever - Ears, Nose & Throat Ears, Nose & Throat: reports: Nasal discharge - Cardiovascular Cariovascular: denies: Chest pain, Exertional dyspnea, Decr. exercise tolerance - Respiratory Respiratory: reports: Cough. denies: Sputum production, SOB at rest, SOB with exertion - Gastrointestinal Gastrointestinal: reports: Constipation. denies: Abdominal pain, Diarrhea, Nausea, Vomiting - Genitourinary Genitourinary: denies: Dysuria, Frequency, Urgency - Musculoskeletal Musculoskeletal: reports: Stiffness, Limited range of motion - Integumentary Integumentary: reports: Lesions. denies: Rash - Neurological Neurological: reports: General weakness, Numbness. denies: Focal weakness - All Other Systems All Other Systems: reports: Reviewed and negative Prior Level of Functionality: He lives alone and is normally independent with her ADLs. Since discharge has been using a walker and has had difficulty performing her ADLs. Exam - Vital Signs Reviewed Vital Signs: Yes Vital Signs: Vital Signs x48h Temp Pulse Resp BP Pulse Ox 09/07/19 18:30 58 L 18 166/55 H 94 09/07/19 17:38 66 18 161/45 H 100 09/07/19 16:55 56 L 18 158/44 H 99 09/07/19 16:11 38.2 C H 67 16 182/51 H 100 - Physical Exam General Appearance: positive: Alert, Mild distress Eyes Bilateral: positive: Normal inspection ENT: positive: ENT inspection nml Neck: positive: Nml inspection Respiratory: positive: No respiratory distress, Other (Diminished breath sounds. No obvious abnormal breath sounds.) Cardiovascular: positive: Regular rate & rhythm, Diastolic murmur. negative: No murmur, Tachycardia, Bradycardia Abdomen: positive: Non-tender, No distention. negative: Tenderness, Guarding, Rebound Back: positive: Nml inspection Skin: positive: Warm, Dry, Skin rash (There is a rash over the right side of her forehead and periorbital area with no open vesicles.) Extremities: positive: Pedal edema (She has trace pitting edema in the bilateral lower extremities.), Other (She has tenderness over the right hip. Neurovascular she is intact. She also does have right knee tenderness.). negative: Non-tender Conclusion/Plan - Problem List (1) Hospital-acquired pneumonia Conclusion/Plan: She does have a left-sided infiltrate on chest x-ray as well as a fever and cough. Although she is not hypoxic and has no white count, the concern is for hospital-acquired pneumonia given her recent hospitalization. We will obtain blood cultures and start her on Zosyn IV and doxycycline IV to cover gram negatives, Pseudomonas, MRSA, atypicals. We will not use azithromycin she had a prolonged QTC previously. Will check influenza PCR. Her pneumonia severity index scores greater than 100 given her age and renal dysfunction which warrants an inpatient admission. (2) Generalized weakness Conclusion/Plan: Likely multifactorial secondary to physical deconditioning from hospitalization and her recent rhabdomyolysis. This may be compounded by the active infection as well. We will hydrate her with IV fluids and treat her pneumonia. Will ask PT and OT to evaluate the patient once again. She likely will require senior living facility on discharge (3) Right hip pain Conclusion/Plan: This is been present since her fall a few days ago. An x-ray of the right hip was negative for fracture. We will treat her pain with morphine IV and started on oxycodone p.o. She is neurovascularly intact but if her pain persists or becomes more severe, will consider obtaining a CT of the right hip to rule out a fracture that was not present on x-ray. (4) Hypertension Conclusion/Plan: She is currently hypertensive with systolics in the 150s. We will hold her home losartan given there is to may be a component of acute kidney injury. Will use hydralazine IV as needed. Qualifiers: Hypertension type: essential hypertension Qualified Code(s): I10 - Essential (primary) hypertension (5) Chronic renal insufficiency Conclusion/Plan: She has renal insufficiency at baseline with a creatinine of around 2. Unclear if this to may be a component of acute kidney injury or not. We will hydrate her with IV lactated Ringer's and hold her losartan for now. Continue to mo nitor her renal function. Qualifiers: Chronic kidney disease stage: stage 4 (severe) Qualified Code(s): N18.4 - Chronic kidney disease, stage 4 (severe) (6) Rhabdomyolysis Conclusion/Plan: She was recently made of rhabdomyolysis and her CKs continue to improve and are now down to 311. We will continue to hydrate her at this time and hold her home simvastatin. Qualifiers: Rhabdomyolysis type: traumatic Encounter type: subsequent encounter Qualified Code(s): T79.6XXD - Traumatic ischemia of muscle, subsequent encounter (7) Hypothyroidism Conclusion/Plan: Stable. We will continue her home Synthroid. - Lab Results Lab results reviewed: Yes Fish Bones: 09/07/19 16:43 09/07/19 16:43 - Diagnostic Imaging Results Diagnostic Imaging Results: positive: Final report reviewed, Read independently Diagnostic Imaging Results Comments: Chest x-ray today does show a new left-sided infiltrate which is not present on her prior chest x-ray from a few days ago. Core Measures - Anticipated LOS I expect patient to be DC'd or transferred within 96 hours.: Yes - Issues Hospital Issues and Management Plan: Is a 84-year-old female with CKD presenting with generalized weakness and right hip pain. She is found to have a fever and a new infiltrate on chest x-ray concerning for hospital-acquired pneumonia given her recent hospitalization. Her pneumonia severity index score is greater than 100. Will admit her inpatient for IV antibiotics and consult PT and OT. - DVT/VTE - Prophylaxis VTE/DVT Device ordered at admit?: Yes VTE/DVT Prophylaxis med ordered at admit?: Yes
[2019-09-07 18:50] LABS: BILIRUBIN,URINE NEGATIVE (NEGATIVE); GLUCOSE, URINE (UA) NEGATIVE (NEGATIVE); KETONES,URINE (UA) NEGATIVE (NEGATIVE); LEUKOCYTE ESTERASE, URINE NEGATIVE (NEGATIVE); NITRITE,URINE NEGATIVE (NEGATIVE); OCCULT BLOOD,URINE TRACE-INTA (NEGATIVE); PH,URINE 5.5 PH (5.0-7.5); PROTEIN,URINE TRACE mg/dL (NEGATIVE); UROBILINOGEN,URINE 0.2 (NORMAL) E.U./dL (NORMAL)
[2019-09-07 19:00] LABS: CLARITY,URINE CLEAR (CLEAR)
[2019-09-07] MEDS ORDERED: SODIUM CHLORIDE 0.9% 1,000 ML IV SCH (19:00)
[2019-09-07] MEDS: DOXYCYCLINE INJ 100 MG in SODIUM CHLORIDE 0.9% MINIBAG 100 ML IV SCH (20:15)
[2019-09-07] MEDS: LACTATED RINGERS 1,000 ML IV SCH (20:15)
[2019-09-07] MEDS: ENOXAPARIN 80 MG/0.8 ML SYRINGE SUBQ SCH (20:17)
[2019-09-07] MEDS ORDERED: HEPARIN 5,000 UNIT/ML VIAL SUBQ SCH (21:00)
[2019-09-07] MEDS ORDERED: SODIUM CHLORIDE FLUSH 0.9% 10 ML SYRINGE ONE (21:06)
[2019-09-07] MEDS: GABAPENTIN 300 MG CAPSULE PO SCH (21:13)
[2019-09-07] MEDS: PIPERACILLIN/TAZOBACTAM 2.25 GM in SODIUM CHLORIDE 0.9% MINIBAG 100 ML IV SCH (21:13)
--- NOTE | 2019-09-07 21:16 | PROVIDER PROGRESS NOTE ---
Railways Assistant Note - Railways Assistant Note Railways Assistant Note: I was notified by nursing staff that the patient's Troponin at 16:43 was 1040. Repeat Troponin 3 hrs later was 1030. BNP was 1700. On 09/05/19 Trop was 84, 91, 88. The patient denied chest pain or dyspnea A 2D echo done on 09/05/19 showed an EF of 55.60% with no significant wall motion abnormality. Patient was discharged yesterday and presented to the ED today with knee and hip pain for which work up has been negative. She was thought to have HCAP and placed on doxycycline and zosyn. Test for influenza A&B were negative Prior to last admission she had completed acyclovir for shingles. I spoke to Dr Pineda (heading repairer portrait consultant at [place]) who advised conser vative management for now and repeating an echocardiogram in the morning. And call back if any significant findings are noted. She is on lovenox 1mg/kg subq bid. Metoprolol tartrate 25mg po bid was added. She is already on plavix, losartan and simvastatin. This was presented to the patient's family (son Ismael and his ) who agreed with the plan. Per family, the patient's baseline functionality has slowly been declining over the past few months. She normally would get around with her walker but it has become increasingly difficult for her to do so. Tentative plan upon admission was for a discharge to rehab upon discharge from this admission. I discussed with the family the likelihood that she may not be able to be on her own at home and may need placement into a facility. They expressed understanding and agreed with the assessment.
[2019-09-07] MEDS: METOPROLOL TARTRATE 25 MG TABLET PO SCH (21:21)
[2019-09-08] MEDS: SODIUM CHLORIDE FLUSH 0.9% 10 ML SYRINGE IVP SCH ×3 (01:36→15:20)
[2019-09-08] MEDS: PIPERACILLIN/TAZOBACTAM 2.25 GM in SODIUM CHLORIDE 0.9% MINIBAG 100 ML IV SCH ×4 (02:33→21:15)
[2019-09-08 05:05] LABS: BASOPHILS % (AUTO) 0.8 %; EOSINOPHILS # (AUTO) 0.2 10^3/uL (0.0-0.7); EOSINOPHILS % (AUTO) 6.2 %; HGB - HEMOGLOBIN 8.8 g/dL (12.0-16.0); LYMPHOCYTES # (AUTO) 0.8 10^3/uL (1.5-3.5); LYMPHOCYTES % (AUTO) 22.4 %; MEAN CORPUSCULAR HEMOGLOBIN 28.4 pg (27.0-31.0); MEAN CORPUSCULAR HGB CONC 28.9 g/dL (32.0-36.0); MEAN CORPUSCULAR VOLUME 98.1 fL (81.0-99.0); MEAN PLATELET VOLUME 11.2 fL (7.9-10.8); MONOCYTES # (AUTO) 0.4 10^3/uL (0.0-1.0); MONOCYTES % (AUTO) 11.1 %; NEUTROPHILS # (AUTO) 2.2 10^3/uL (1.5-6.6); NEUTROPHILS % (AUTO) 59.2 %; PLT - PLATELET COUNT 168 10^3/uL (130-450); RED CELL DISTRIBUTION WIDTH 15.9 % (12.0-15.0); WHITE BLOOD COUNT 3.7 x10^3/uL (4.8-10.8)
[2019-09-08 05:20] LABS: MAGNESIUM 1.7 mg/dL (1.7-2.8); PHOSPHORUS 3.8 mg/dL (2.5-4.6)
[2019-09-08] MEDS: LACTATED RINGERS 1,000 ML IV SCH ×2 (06:46→20:13)
[2019-09-08] MEDS: LEVOTHYROXINE 100 MCG TABLET PO SCH (06:50)
[2019-09-08] MEDS ORDERED: LOSARTAN 50 MG TABLET PO SCH (09:00)
[2019-09-08] MEDS: ATORVASTATIN 40 MG TABLET PO SCH ×2 (09:13→20:26)
[2019-09-08] MEDS: METOPROLOL TARTRATE 25 MG TABLET PO SCH ×2 (09:14→20:26)
[2019-09-08] MEDS: CLOPIDOGREL 75 MG TABLET PO SCH (09:14)
[2019-09-08] MEDS: DOXYCYCLINE INJ 100 MG in SODIUM CHLORIDE 0.9% MINIBAG 100 ML IV SCH ×2 (09:15→20:14)
--- NOTE | 2019-09-08 14:00 | PROVIDER PROGRESS NOTE ---
Subjective - Prog Note Date Prog Note Date: 09/08/19 Prog Note Time: 13:58 - Subjective Subjective: She is tearful. Sad. She is now very concerned about the heart attack. She is more concerned about the fact that she is a "burden" to her grandchildren and children. She feels like she is able to do less and less. She is not ready to give up yet but also would not of wanted to go get aggressive intervention for her heart yet. She denies chest pain. A little short of breath but not severe. Her main complaint is right knee pain. She had an injection done in April 2019 when she was in the emergency room that helped quite a bit. Her right knee pain is causing less mobility and is now starting to affect her left knee. She wonders if there is anything I could do for that. Current Medications - Current Medications Current Medications: Active Medications Acetaminophen (Tylenol) 650 mg PO Q4HR PRN PRN Reason: Pain 1 to 4 Atorvastatin Calcium (Lipitor) 40 mg PO QPM [facility] Last Admin: 09/08/19 09:13 Dose: Not Given Clopidogrel Bisulfate (Plavix) 75 mg PO DAILY [facility] Last Admin: 09/08/19 09:14 Dose: Not Given Enoxaparin Sodium (Lovenox) 70 mg SUBQ Q24H [facility] Last Admin: 09/07/19 20:17 Dose: 70 mg Gabapentin (Neurontin) 300 mg PO QPM [facility] Last Admin: 09/07/19 21:13 Dose: 300 mg Hydralazine HCl (Apresoline Inj) 10 mg IVP Q6H PRN PRN Reason: NEEDED PER PROVIDER ORDERS Doxycycline Hyclate 100 mg/ (Sodium Chloride) 100 mls @ 100 mls/hr IV Q12H [facility] Last Infusion: 09/08/19 10:59 Dose: Infused Piperacillin Sod/Tazobactam (Sod 2.25 gm/ Sodium Chloride) 100 mls @ 200 mls/hr IV Q6H [facility] Last Infusion: 09/08/19 12:16 Dose: Infused Lactated Ringer's (Lr) 1,000 mls @ 100 mls/hr IV .Q10H [facility] Last Admin: 09/08/19 06:46 Dose: 100 mls/hr Levothyroxine Sodium (Synthroid) 100 mcg PO QDAC [facility] Last Admin: 09/08/19 06:50 Dose: 100 mcg Losartan Potassium (Cozaar) 50 mg PO DAILY [facility] Last Admin: 09/08/19 09:14 Dose: Not Given Metoprolol Tartrate (Lopressor) 25 mg PO BID [facility] Last Admin: 09/08/19 09:14 Dose: Not Given Morphine Sulfate (Morphine (Carpuject)) 2 mg IVP Q2HR PRN PRN Reason: Pain 8 to 10 Last Admin: 09/07/19 21:13 Dose: 2 mg Ondansetron HCl (Zofran Inj) 4 mg IVP Q6HR PRN PRN Reason: Nausea / Vomiting Oxycodone HCl (Roxicodone) 5 mg PO Q4HR PRN PRN Reason: Pain 5 to 7 Polyethylene Glycol (Miralax) 17 gm PO DAILY PRN PRN Reason: Bowel Protocol Senna (Senokot) 8.6 mg PO DAILY PRN PRN Reason: Constipation Sodium Chloride (Normal Saline Flush 0.9%) 10 ml IVP PRN PRN PRN Reason: NEEDED PER PROVIDER ORDERS Sodium Chloride (Normal Saline Flush 0.9%) 10 ml IVP 0100,0900,1700 [facility] Last Admin: 09/08/19 09:16 Dose: 10 ml ALPRAZolam [Alprazolam] 0.25 mg PO TID PRN 09/05/19 Clopidogrel [Plavix] 75 mg PO DAILY 09/05/19 Gabapentin 300 mg PO QPM 09/05/19 Levothyroxine [Synthroid] 100 mcg PO QDAC 09/05/19 Losartan Potassium [Cozaar] 50 mg PO DAILY 09/05/19 Prazosin [Minipress] 1 mg PO BID 09/05/19 Simvastatin 20 mg PO QPM 09/05/19 Objective - Vital Signs/Intake & Output Reviewed Vital Signs: Yes Vital Signs: Vital Signs x48h Temp Pulse Resp BP BP Pulse Ox 09/08/19 12:47 36.7 C 69 16 147/44 H 97 09/08/19 09:14 130/38 L 09/08/19 08:14 37.7 C H 54 L 12 130/38 L 96 Intake & Output: Intake & Output 09/05/19 09/06/19 09/07/19 09/08/19 23:59 23:59 23:59 23:59 Intake Total 373.026 6528 Output Total 800 Balance 919.167 505 - Objective General Appearance: positive: Alert, Moderate distress (Emotional, crying.), Other (5 feet 2 and short statured elderly female who weighs 71 kg.Daughter and granddaughter at the bedside.) Eyes Bilateral: positive: PERRL, EOMI Neck: positive: No JVD. negative: Stiff neck, Carotid bruit Respiratory: positive: Chest non-tender, No respiratory distress, Rales. negative: Wheezes, Rhonchi Cardiovascular: positive: Regular rate & rhythm, Systolic murmur. negative: Gallop/S4, Friction rub Abdomen: positive: Non-tender, No organomegaly, Nml bowel sounds, No distention Skin: positive: Warm, Dry Extremities: positive: Other (Legs are large, and changes of chronic venous stasis are present with hyperpigmentation, scaly dry skin that is mild. Only trace edema present. Both knees have a boggy appearance when I palpate them. But the kneecap is not ballotable. There is no warmth or effusion to either knee. She has full passive range of motion in the right knee but it hurts.) Neurologic/Psychiatric: positive: Oriented x3, CN's nml (2-12) (Except mildly deaf) - Lab Results Fish Bones: 09/08/19 04:20 09/08/19 04:20 Other Labs: Lab Results x24hrs 09/08/19 09/08/19 09/08/19 Range/Units 04:20 04:20 01:55 WBC 3.7 L (4.8-10.8) x10^3/uL RBC 3.10 L (4.20-5.40) 10^6/uL Hgb 8.8 L (12.0-16.0) g/dL Hct 30.4 L (37.0-47.0) % MCV 98.1 (81.0-99.0) fL MCH 28.4 (27.0-31.0) pg MCHC 28.9 L (32.0-36.0) g/dL RDW 15.9 H (12.0-15.0) % Plt Count 168 (130-450) 10^3/uL MPV 11.2 H (7.9-10.8) fL Neut # (Auto) 2.2 (1.5-6.6) 10^3/uL Lymph # (Auto) 0.8 L (1.5-3.5) 10^3/uL [place] # (Auto) 0.4 (0.0-1.0) 10^3/uL Eos # (Auto) 0.2 (0.0-0.7) 10^3/uL Baso # (Auto) 0.0 (0.0-0.1) 10^3/uL Absolute Nucleated RBC 0.00 x10^3/uL Nucleated RBC % 0.0 /100WBC ESR (0-30) mm/Hr Sodium 141 (135-145) mmol/L Potassium 4.3 (3.5-5.0) mmol/L Chloride 115 H (101-111) mmol/L Carbon Dioxide 22 (21-32) mmol/L Anion Gap 4.0 L (6-13) BUN 33 H (6-20) mg/dL Creatinine 2.0 H (0.4-1.0) mg/dL Estimated GFR (MDRD) 24 L (>89) Glucose 91 (70-100) mg/dL Lactic Acid (0.5-2.2) mmol/L Calcium 8.0 L (8.5-10.3) mg/dL Phosphorus 3.8 (2.5-4.6) mg/dL Magnesium 1.7 (1.7-2.8) mg/dL Total Bilirubin (0.2-1.0) mg/dL AST (10-42) IU/L ALT (10-60) IU/L Alkaline Phosphatase (42-121) IU/L Total Creatine Kinase (22-269) IU/L Troponin I High Sens 766.7 H* (2.3-14.8) ng/L C-Reactive Protein (0-1.0) mg/dL B-Natriuretic Peptide (5-100) pg/mL Total Protein (6.7-8.2) g/dL Albumin (3.2-5.5) g/dL Globulin (2.1-4.2) g/dL Albumin/Globulin Ratio (1.0-2.2) Lipase (22-51) U/L Urine Color Urine Clarity (CLEAR) Urine pH (5.0-7.5) PH Ur Specific [place] (1.002-1.030) Urine Protein (NEGATIVE) mg/dL Urine Glucose (UA) (NEGATIVE) mg/dL Urine Ketones (NEGATIVE) mg/dL Urine Occult Blood (NEGATIVE) Urine Nitrite (NEGATIVE) Urine Bilirubin (NEGATIVE) Urine Urobilinogen (NORMAL) E.U./dL Ur Leukocyte Esterase (NEGATIVE) Ur Microscopic Review Urine Culture Comments Influenza A (Rapid) (Negative) Influenza B (Rapid) (Negative) 09/08/19 09/07/19 09/07/19 Range/Units 01:55 20:03 20:03 WBC (4.8-10.8) x10^3/uL RBC (4.20-5.40) 10^6/uL Hgb (12.0-16.0) g/dL Hct (37.0-47.0) % MCV (81.0-99.0) fL MCH (27.0-31.0) pg MCHC (32.0-36.0) g/dL RDW (12.0-15.0) % Plt Count (130-450) 10^3/uL MPV (7.9-10.8) fL Neut # (Auto) (1.5-6.6) 10^3/uL Lymph # (Auto) (1.5-3.5) 10^3/uL [place] # (Auto) (0.0-1.0) 10^3/uL Eos # (Auto) (0.0-0.7) 10^3/uL Baso # (Auto) (0.0-0.1) 10^3/uL Absolute Nucleated RBC x10^3/uL Nucleated RBC % /100WBC ESR 18 (0-30) mm/Hr Sodium (135-145) mmol/L Potassium (3.5-5.0) mmol/L Chloride (101-111) mmol/L Carbon Dioxide (21-32) mmol/L Anion Gap (6-13) BUN (6-20) mg/dL Creatinine (0.4-1.0) mg/dL Estimated GFR (MDRD) (>89) Glucose (70-100) mg/dL Lactic Acid (0.5-2.2) mmol/L Calcium (8.5-10.3) mg/dL Phosphorus (2.5-4.6) mg/dL Magnesium (1.7-2.8) mg/dL Total Bilirubin (0.2-1.0) mg/dL AST (10-42) IU/L ALT (10-60) IU/L Alkaline Phosphatase (42-121) IU/L Total Creatine Kinase (22-269) IU/L Troponin I High Sens 1030.1 H* (2.3-14.8) ng/L C-Reactive Protein 4.5 H (0-1.0) mg/dL B-Natriuretic Peptide (5-100) pg/mL Total Protein (6.7-8.2) g/dL Albumin (3.2-5.5) g/dL Globulin (2.1-4.2) g/dL Albumin/Globulin Ratio (1.0-2.2) Lipase (22-51) U/L Urine Color Urine Clarity (CLEAR) Urine pH (5.0-7.5) PH Ur Specific [place] (1.002-1.030) Urine Protein (NEGATIVE) mg/dL Urine Glucose (UA) (NEGATIVE) mg/dL Urine Ketones (NEGATIVE) mg/dL Urine Occult Blood (NEGATIVE) Urine Nitrite (NEGATIVE) Urine Bilirubin (NEGATIVE) Urine Urobilinogen (NORMAL) E.U./dL Ur Leukocyte Esterase (NEGATIVE) Ur Microscopic Review Urine Culture Comments Influenza A (Rapid) (Negative) Influenza B (Rapid) (Negative) 09/07/19 09/07/19 09/07/19 Range/Units 19:30 18:23 16:43 WBC (4.8-10.8) x10^3/uL RBC (4.20-5.40) 10^6/uL Hgb (12.0-16.0) g/dL Hct (37.0-47.0) % MCV (81.0-99.0) fL MCH (27.0-31.0) pg MCHC (32.0-36.0) g/dL RDW (12.0-15.0) % Plt Count (130-450) 10^3/uL MPV (7.9-10.8) fL Neut # (Auto) (1.5-6.6) 10^3/uL Lymph # (Auto) (1.5-3.5) 10^3/uL [place] # (Auto) (0.0-1.0) 10^3/uL Eos # (Auto) (0.0-0.7) 10^3/uL Baso # (Auto) (0.0-0.1) 10^3/uL Absolute Nucleated RBC x10^3/uL Nucleated RBC % /100WBC ESR (0-30) mm/Hr Sodium (135-145) mmol/L Potassium (3.5-5.0) mmol/L Chloride (101-111) mmol/L Carbon Dioxide (21-32) mmol/L Anion Gap (6-13) BUN (6-20) mg/dL Creatinine (0.4-1.0) mg/dL Estimated GFR (MDRD) (>89) Glucose (70-100) mg/dL Lactic Acid (0.5-2.2) mmol/L Calcium (8.5-10.3) mg/dL Phosphorus (2.5-4.6) mg/dL Magnesium (1.7-2.8) mg/dL Total Bilirubin (0.2-1.0) mg/dL AST (10-42) IU/L ALT (10-60) IU/L Alkaline Phosphatase (42-121) IU/L Total Creatine Kinase (22-269) IU/L Troponin I High Sens (2.3-14.8) ng/L C-Reactive Protein (0-1.0) mg/dL B-Natriuretic Peptide 1720 H (5-100) pg/mL Total Protein (6.7-8.2) g/dL Albumin (3.2-5.5) g/dL Globulin (2.1-4.2) g/dL Albumin/Globulin Ratio (1.0-2.2) Lipase (22-51) U/L Urine Color YELLOW Urine Clarity CLEAR (CLEAR) Urine pH 5.5 (5.0-7.5) PH Ur Specific [place] 1.020 (1.002-1.030) Urine Protein TRACE (NEGATIVE) mg/dL Urine Glucose (UA) NEGATIVE (NEGATIVE) mg/dL Urine Ketones NEGATIVE (NEGATIVE) mg/dL Urine Occult Blood TRACE-INTA (NEGATIVE) Urine Nitrite NEGATIVE (NEGATIVE) Urine Bilirubin NEGATIVE (NEGATIVE) Urine Urobilinogen 0.2 (NORMAL) (NORMAL) E.U./dL Ur Leukocyte Esterase NEGATIVE (NEGATIVE) Ur Microscopic Review NOT INDICATED Urine Culture Comments NOT INDICATED Influenza A (Rapid) Negative (Negative) Influenza B (Rapid) Negative (Negative) 09/07/19 09/07/19 09/07/19 Range/Units 16:43 16:43 16:43 WBC (4.8-10.8) x10^3/uL RBC (4.20-5.40) 10^6/uL Hgb (12.0-16.0) g/dL Hct (37.0-47.0) % MCV (81.0-99.0) fL MCH (27.0-31.0) pg MCHC (32.0-36.0) g/dL RDW (12.0-15.0) % Plt Count (130-450) 10^3/uL MPV (7.9-10.8) fL Neut # (Auto) (1.5-6.6) 10^3/uL Lymph # (Auto) (1.5-3.5) 10^3/uL [place] # (Auto) (0.0-1.0) 10^3/uL Eos # (Auto) (0.0-0.7) 10^3/uL Baso # (Auto) (0.0-0.1) 10^3/uL Absolute Nucleated RBC x10^3/uL Nucleated RBC % /100WBC ESR (0-30) mm/Hr Sodium 141 (135-145) mmol/L Potassium 4.0 (3.5-5.0) mmol/L Chloride 116 H (101-111) mmol/L Carbon Dioxide 19 L (21-32) mmol/L Anion Gap 6.0 (6-13) BUN 35 H (6-20) mg/dL Creatinine 1.9 H (0.4-1.0) mg/dL Estimated GFR (MDRD) 25 L (>89) Glucose 97 (70-100) mg/dL Lactic Acid 1.0 (0.5-2.2) mmol/L Calcium 8.3 L (8.5-10.3) mg/dL Phosphorus (2.5-4.6) mg/dL Magnesium (1.7-2.8) mg/dL Total Bilirubin 0.9 (0.2-1.0) mg/dL AST 23 (10-42) IU/L ALT 15 (10-60) IU/L Alkaline Phosphatase 36 L (42-121) IU/L Total Creatine Kinase 311 H (22-269) IU/L Troponin I High Sens 1040.8 H* (2.3-14.8) ng/L C-Reactive Protein (0-1.0) mg/dL B-Natriuretic Peptide (5-100) pg/mL Total Protein 5.6 L (6.7-8.2) g/dL Albumin 2.9 L (3.2-5.5) g/dL Globulin 2.7 (2.1-4.2) g/dL Albumin/Globulin Ratio 1.1 (1.0-2.2) Lipase 24 (22-51) U/L Urine Color Urine Clarity (CLEAR) Urine pH (5.0-7.5) PH Ur Specific [place] (1.002-1.030) Urine Protein (NEGATIVE) mg/dL Urine Glucose (UA) (NEGATIVE) mg/dL Urine Ketones (NEGATIVE) mg/dL Urine Occult Blood (NEGATIVE) Urine Nitrite (NEGATIVE) Urine Bilirubin (NEGATIVE) Urine Urobilinogen (NORMAL) E.U./dL Ur Leukocyte Esterase (NEGATIVE) Ur Microscopic Review Urine Culture Comments Influenza A (Rapid) (Negative) Influenza B (Rapid) (Negative) 09/07/19 Range/Units 16:43 WBC 4.6 L (4.8-10.8) x10^3/uL RBC 3.47 L (4.20-5.40) 10^6/uL Hgb 10.0 L (12.0-16.0) g/dL Hct 33.0 L (37.0-47.0) % MCV 95.1 (81.0-99.0) fL MCH 28.8 (27.0-31.0) pg MCHC 30.3 L (32.0-36.0) g/dL RDW 15.7 H (12.0-15.0) % Plt Count 203 (130-450) 10^3/uL MPV 10.9 H (7.9-10.8) fL Neut # (Auto) 3.7 (1.5-6.6) 10^3/uL Lymph # (Auto) 0.5 L (1.5-3.5) 10^3/uL [place] # (Auto) 0.3 (0.0-1.0) 10^3/uL Eos # (Auto) 0.1 (0.0-0.7) 10^3/uL Baso # (Auto) 0.0 (0.0-0.1) 10^3/uL Absolute Nucleated RBC 0.00 x10^3/uL Nucleated RBC % 0.0 /100WBC ESR (0-30) mm/Hr Sodium (135-145) mmol/L Potassium (3.5-5.0) mmol/L Chloride (101-111) mmol/L Carbon Dioxide (21-32) mmol/L Anion Gap (6-13) BUN (6-20) mg/dL Creatinine (0.4-1.0) mg/dL Estimated GFR (MDRD) (>89) Glucose (70-100) mg/dL Lactic Acid (0.5-2.2) mmol/L Calcium (8.5-10.3) mg/dL Phosphorus (2.5-4.6) mg/dL Magnesium (1.7-2.8) mg/dL Total Bilirubin (0.2-1.0) mg/dL AST (10-42) IU/L ALT (10-60) IU/L Alkaline Phosphatase (42-121) IU/L Total Creatine Kinase (22-269) IU/L Troponin I High Sens (2.3-14.8) ng/L C-Reactive Protein (0-1.0) mg/dL B-Natriuretic Peptide (5-100) pg/mL Total Protein (6.7-8.2) g/dL Albumin (3.2-5.5) g/dL Globulin (2.1-4.2) g/dL Albumin/Globulin Ratio (1.0-2.2) Lipase (22-51) U/L Urine Color Urine Clarity (CLEAR) Urine pH (5.0-7.5) PH Ur Specific [place] (1.002-1.030) Urine Protein (NEGATIVE) mg/dL Urine Glucose (UA) (NEGATIVE) mg/dL Urine Ketones (NEGATIVE) mg/dL Urine Occult Blood (NEGATIVE) Urine Nitrite (NEGATIVE) Urine Bilirubin (NEGATIVE) Urine Urobilinogen (NORMAL) E.U./dL Ur Leukocyte Esterase (NEGATIVE) Ur Microscopic Review Urine Culture Comments Influenza A (Rapid) (Negative) Influenza B (Rapid) (Negative) Assessment/Plan - Problem List (1) NSTEMI (non-ST elevated myocardial infarction) Impression: Her troponin was noted to be elevated with her last admission but it was such a small bump that it was attributed to congestive heart failure in elderly patient with renal disease. Troponin was checked at 16: 43 yesterday and was 1040. Repeat troponin was 1030 four hours later. At 2 this morning she 766.7. She is being treated as an end STEMI. Dr. yeison Souza asked if the patient should be transferred and discussed the case with cardiology who felt that she could stay here. She is on Lovenox, beta-mounika, losartan, and atorvastatin. She is still on her Plavix. Plan: echo when available. Her last echocardiogram September 04 had an ejection fraction of 55 to 60%. This was before her myocardial infarction. trend troponin (2) Hospital-acquired pneumonia Conclusion/Plan: She does have a left-sided infiltrate on chest x-ray as well as a fever and cough. Although she is not hypoxic and has no white count, the concern is for hospital-acquired pneumonia given her recent hospitalization. We will obtain blood cultures and start her on Zosyn IV and doxycycline IV to cover gram negatives, Pseudomonas, MRSA, atypicals. Day #2. We will not use azithromycin she had a prolonged QTC previously. Will check influenza PCR. Her pneumonia severity index scores greater than 100 given her age and renal dysfunction which warrants an inpatient admission. (3) Generalized weakness Conclusion/Plan: Likely multifactorial secondary to physical deconditioning from hospitalization and her recent rhabdomyolysis. This may be compounded by the active infection as well. We will hydrate her with IV fluids and treat her pneumonia. Physical therapy saw her today. And her main problem with mobility was the right knee pain. She can scoot herself to the edge of the bed and stand. She is locking her right knee. At home she ambulates with a walker and that will be continued here. She likely will require [facility] facility on discharge (4) Right hip pain and right knee pain Conclusion/Plan: This is been present since her fall a few days ago. An x-ray of the right hip was negative for fracture. We will treat her pain with morphine IV and started on oxycodone p.o. She is neurovascularly intact but if her pain persists or becomes more severe, will consider obtaining a CT of the right hip to rule out a fracture that was not present on x-ray. Today her pain is mainly in the knee. Knee exam was essentially benign. Plan: Check plain film of the knee Steroid injection tomorrow at her request. She remembers an injection of her knee from April [address] Jeter in the emergency room and it gave her quite a bit of relief. She is hoping I can do the same thing tomorrow. (5) Hypertension Conclusion/Plan: She is currently hypertensive with systolics in the 150s. We will hold her home losartan given there is to may be a component of acute kidney injury. Will use hydralazine IV as needed. Qualifiers: Hypertension type: essential hypertension Qualified Code(s): I10 - Essential (primary) hypertension (6) Chronic renal insufficiency Conclusion/Plan: She has renal insufficiency at baseline with a creatinine of around 2. Unclear if this to may be a component of acute kidney injury or not. We will hydrate her with IV lactated Ringer's and hold her losartan for now. Continue to monitor her renal function. Creatinine 1.9>2.0 Qualifiers: Chronic kidney disease stage: stage 4 (severe) Qualified Code(s): N18.4 - Chronic kidney disease, stage 4 (severe) (7) Rhabdomyolysis Conclusion/Plan: She was recently made of rhabdomyolysis and her CKs continue to improve and are now down to 311. We will continue to hydrate her at this time and hold her home simvastatin. Qualifiers: Rhabdomyolysis type: traumatic Encounter type: subsequent encounter Qualified Code(s): T79.6XXD - Traumatic ischemia of muscle, subsequent encounter (8) Hypothyroidism Conclusion/Plan: Stable. We will continue her home Synthroid.
[2019-09-08] MEDS: ACETAMINOPHEN 325 MG TABLET PO PRN (15:39)
--- NOTE | 2019-09-08 16:06 | ADVANCE CARE PLANNING NOTE ---
Advance Care Planning - Planning Encounter Date: 09/08/19 Time: 11:00 Purpose: Establish why she is so tearful, and how far she wants procedures done in the face of statements "I do not want you to do things to keep me alive" Parties in Attendance: Patient, daughter, granddaughter, hospitalist Decisional Capacity of the Patient: Intact. - Diagnosis for Encounter (1) NSTEMI (non-ST elevated myocardial infarction) Summary: Was recently in the hospital with a fall and rhabdomyolysis, now in the hospital because of inability to get out of bed and is found to have an non-ST elevation CT - Encounter Subjective/Patient's Story: She is an independent lady who took care of her grandparents, parents until they . She was happily , but unfortunately her 2 years ago. She is felt very sad, lonely since that time. Feels that her drive to do things is diminished. When I asked her when was the last time she felt like if she could get up, go do whatever she wanted to, and have energy to do it, she states it was 2 years ago. Around the time her . Daughter gently remind mom that a lot of it has to do with sadness and depression and the patient agrees. Slowly she has been needing more help at home. A granddaughter comes by and does her groceries, leaves food for the week. Daughter and granddaughter both will do some brush stainer, and son will also take her to her doctor's appointments. But the patient feels like she is a burden to them. She spontaneously starts crying with tears rolling down her face as she tells her daughter that she is so tired, and does not want us to keep on doing things to her. However, the patient states she is not ready to yet. She loves her grandchildren tremendously and loves spending time with her children. She just wishes that she was not "a burden" to them. There is been a noticeable decline in functional status over the last 2 to 4 weeks. She fell down, and was on the floor overnight for probably 12 to 18 hours. She was hospitalized with rhabdomyolysis, dehydration, acute kidney insufficiency, and a mildly elevated troponin. The troponin was felt to be of elevated due to her renal failure. She was weak, and return to home at her request. She did not want to go to a fpc facility. [facility] was ordered for physical therapy. She was discharged on September 06. Home health came to see her on September 07. It was noted that the patient had not gotten out of bed since coming home. She was so weak, and her right knee was really hurting her. She was sleepy, and had been incontinent in her bed with the pad saturated. When they got her home she was able to transfer from the car, to a wheelchair, and then to bed. But on the day of admission she could not get out of bed to transfer to a wheelchair to get to the bathroom. As such, because of a sharp decline, the patient returned to the hospital. She is found to have a pneumonia on chest x-ray. EKG showed no acute ST-T wave changes but her troponin was 1040. She is felt to be having an non-ST elevation CT. She states that her right knee really hurts. It makes it difficult to move. Objective/Medical Story: This is a 84-year-old female with a past medical history significant for hypothyroidism, chronic renal insufficiency, hypertension, osteoarthritis who presents today complaining of right sided hip pain and generalized weakness. She was just discharged in the hospital yesterday after being admitted for syncope and fall. She is found to have rhabdomyolysis and acute kidney injury which responded well to IV fluids. She was also found to have a urinary tract infection and discharged on Keflex. She worked with physical therapy during that hospitalization and was able to ambulate with a walker and she was discharged home yesterday. Her family states that since she has been home, she has had difficulty ambulating and has been very weak. She woke up today at around noon and could barely get the side of the bed. Physical therapy evaluated the patient at home and the patient was unable to participate due to the weakness and right hip pain. She has been taking Tylenol without improvement in the pain. She states her pain began after the fall she had about 1 week ago. She does have chronic severe osteoarthritis of both of her knees and a total knee replacement was recommended but due to her health, she has not proceeded with surgery. She is complaining of chills and a nonproductive cough. She reports no dyspnea or chest pain. She denies fever although the patient's family felt she was a little warm today. She reports no nausea or vomiting. She has been constipated at times has not had a bowel movement since discharge. In the emergency department, she is found to be febrile with temperature of 38.2. Her heart rate was in the 50s, she was not tachypneic and saturating 99% on room air. She was also hypertensive with a systolic blood pressure in the 150s. Her labs revealed a white count of 4.6 which is stable compared to discharge. Her creatinine was at 1.9 which is also stable since discharge. Her CK's are in the low 300's which is improved. A chest x-ray was concerning for a new left sided infiltrate. An x-ray of the right hip did not reveal a fracture. Given her fever and concern for pneumonia, medicine was consulted for admission. I did speak with the patient and her family regarding goals of care and she would like to be a DNR. She is agreeable to a fpc facility on discharge if necessary. History - Past Medical History Cardiovascular: reports: Hypertension Respiratory: reports: None Neuro: reports: None Endocrine/Autoimmune: reports: HyPOthyroidism GI: reports: None SECURITY DELIVERY SPECIALIST: reports: None : reports: None HEENT: reports: None Psych: reports: None Musculoskeletal: reports: Osteoarthritis Derm: reports: None For completeness sake, a troponin was done and found to be severely elevated. EKG shows no acute ST-T wave changes. She has been started on Lovenox, continued on Plavix, and will be started on losartan and a beta-mounika today. Goals of Care: 1. While she wants to remain independent at home, she is willing to do rehabilitation at a fpc facility to get her strength back up 2. Her right knee really hurts and she would like an injection 3. While she is willing to undergo a cardiac evaluation and would consider a coronary angiogram and stent, she does not want to consider open heart surgery 4. She is willing to sit down and have an open conversation with her son and daughter about her depression, loneliness, and reluctance to accept help. She would like to think about what parameters she can use to stop declining medical therapy but does not know what she is thinking yet. She promises to let me and her daughters know when we are doing something that she does not want. 5. She is a DO NOT RESUSCITATE if her heart were to stop beating or she were to stop breathing. 6. Evaluate her right knee and reduce her pain so that she can ambulate more Plan: 1. Physical therapy evaluation 2. Verify with cardiology if it is okay for her to do physical therapy in a fpc facility in the next few days when she is ready for discharge order they want to see her first 3. Continue discussions with family 4. Plain film of right knee with injection to follow if film indicates it is okay Code Status: Do Not Attempt Resuscitation Time spent on advance care plannin
--- NOTE | 2019-09-08 18:05 | XRAY Report ---
Reason: pain w standing Procedure Date: 09/08/2019 Accession Number: [id number] / [id number] Procedure: XR - Knee 2 View RT CPT Code: Final Report FULL RESULT: EXAM: RIGHT KNEE RADIOGRAPHY EXAM DATE: 09/08/2019 04:28 PM. CLINICAL HISTORY: Right knee pain with standing. COMPARISON: KNEE 3 VIEW BILAT 09/04/2019 7:35 PM. TECHNIQUE: 2 views. FINDINGS: Bones: Normal. No fractures or bone lesions. Joints: Tricompartment spurring. Complete loss of joint space medially with sclerosis. Small effusion. Soft Tissues: Unremarkable. IMPRESSION: Osteoarthritis, severe medially. Kellgren Gabe Grade 4. Kellgren and Gabe classification of osteoarthritis: Grade 0: no radiographic features of osteoarthritis are present Grade 1: doubtful joint space narrowing (JSN) and possible osteophytic lipping Grade 2: definite osteophytes and possible JSN on anteroposterior weight-bearing radiograph Grade 3: multiple osteophytes, definite JSN, sclerosis, possible bony deformity Grade 4: large osteophytes, marked JSN, severe sclerosis and definite bony deformity RADIA
[2019-09-08] MEDS ORDERED: MIN OIL/DIMETHICON/COCONUT OIL 92 GM TUBE TOP PRN (19:44)
[2019-09-08] MEDS: oxyCODONE 5 MG TABLET PO PRN (20:26)
[2019-09-08] MEDS: GABAPENTIN 300 MG CAPSULE PO SCH (20:26)
[2019-09-08] MEDS: ENOXAPARIN 80 MG/0.8 ML SYRINGE SUBQ SCH (20:26)
[2019-09-08] MEDS ORDERED: ATORVASTATIN 40 MG TABLET PO SCH (21:00)
[2019-09-09] MEDS: SODIUM CHLORIDE FLUSH 0.9% 10 ML SYRINGE IVP SCH ×3 (01:01→17:00)
[2019-09-09] MEDS: PIPERACILLIN/TAZOBACTAM 2.25 GM in SODIUM CHLORIDE 0.9% MINIBAG 100 ML IV SCH (02:50)
[2019-09-09 04:49] LABS: BASOPHILS % (AUTO) 0.7 %; EOSINOPHILS # (AUTO) 0.4 10^3/uL (0.0-0.7); EOSINOPHILS % (AUTO) 8.5 %; HGB - HEMOGLOBIN 9.1 g/dL (12.0-16.0); LYMPHOCYTES # (AUTO) 0.9 10^3/uL (1.5-3.5); LYMPHOCYTES % (AUTO) 21.8 %; MEAN CORPUSCULAR HEMOGLOBIN 28.7 pg (27.0-31.0); MEAN CORPUSCULAR HGB CONC 29.5 g/dL (32.0-36.0); MEAN CORPUSCULAR VOLUME 97.2 fL (81.0-99.0); MEAN PLATELET VOLUME 10.9 fL (7.9-10.8); MONOCYTES # (AUTO) 0.4 10^3/uL (0.0-1.0); MONOCYTES % (AUTO) 8.8 %; NEUTROPHILS # (AUTO) 2.5 10^3/uL (1.5-6.6); PLT - PLATELET COUNT 190 10^3/uL (130-450); RED BLOOD COUNT 3.17 10^6/uL (4.20-5.40); RED CELL DISTRIBUTION WIDTH 15.9 % (12.0-15.0); WHITE BLOOD COUNT 4.2 x10^3/uL (4.8-10.8)
[2019-09-09 05:03] LABS: CALCIUM 7.9 mg/dL (8.5-10.3); CREATININE 2.1 mg/dL (0.4-1.0); MAGNESIUM 1.6 mg/dL (1.7-2.8); PHOSPHORUS 3.2 mg/dL (2.5-4.6)
[2019-09-09] MEDS: hydrALAZINE INJ 20 MG/ML VIAL IVP PRN (05:15)
[2019-09-09] MEDS: LEVOTHYROXINE 100 MCG TABLET PO SCH (06:08)
[2019-09-09] MEDS: LACTATED RINGERS 1,000 ML IV SCH (07:47)
[2019-09-09] MEDS: DOXYCYCLINE INJ 100 MG in SODIUM CHLORIDE 0.9% MINIBAG 100 ML IV SCH (07:47)
--- NOTE | 2019-09-09 07:53 | PROVIDER PROGRESS NOTE ---
Subjective - Prog Note Date Prog Note Date: 09/09/19 Prog Note Time: 10:07 - Subjective Pt reports feeling: Improved Subjective: she doesn't want to get out of bed. tired but in better spirits. denies cp, sob. more alert per RN still wants her knee injected Current Medications - Current Medications Current Medications: Active Medications Acetaminophen (Tylenol) 650 mg PO Q4HR PRN PRN Reason: Pain 1 to 4 Last Admin: 09/08/19 15:39 Dose: 650 mg Amoxicillin/Clavulanate Potassium (Augmentin 500/125) 1 tab PO BID [facility] Last Admin: 09/09/19 08:29 Dose: 1 tab Atorvastatin Calcium (Lipitor) 40 mg PO QPM [facility] Last Admin: 09/08/19 20:26 Dose: 40 mg Clopidogrel Bisulfate (Plavix) 75 mg PO DAILY [facility] Last Admin: 09/09/19 08:31 Dose: 75 mg Doxycycline Hyclate (Vibramycin) 100 mg PO BID [facility] Enoxaparin Sodium (Lovenox) 70 mg SUBQ Q24H [facility] Last Admin: 09/08/19 20:26 Dose: 70 mg Gabapentin (Neurontin) 300 mg PO QPM [facility] Last Admin: 09/08/19 20:26 Dose: 300 mg Hydralazine HCl (Apresoline Inj) 10 mg IVP Q6H PRN PRN Reason: NEEDED PER PROVIDER ORDERS Last Admin: 09/09/19 05:15 Dose: 10 mg Lactated Ringer's (Lr) 1,000 mls @ 100 mls/hr IV .Q10H [facility] Last Admin: 09/09/19 07:47 Dose: 100 mls/hr Levothyroxine Sodium (Synthroid) 100 mcg PO QDAC [facility] Last Admin: 09/09/19 06:08 Dose: 100 mcg Metoprolol Tartrate (Lopressor) 25 mg PO BID [facility] Last Admin: 09/09/19 09:02 Dose: 25 mg Mineral Oil (Cavilon) 1 applic TOP PRN PRN PRN Reason: Skin Care Last Admin: 09/08/19 20:14 Dose: 1 applic Morphine Sulfate (Morphine (Carpuject)) 2 mg IVP Q2HR PRN PRN Reason: Pain 8 to 10 Last Admin: 09/07/19 21:13 Dose: 2 mg Ondansetron HCl (Zofran Inj) 4 mg IVP Q6HR PRN PRN Reason: Nausea / Vomiting Oxycodone HCl (Roxicodone) 5 mg PO Q4HR PRN PRN Reason: Pain 5 to 7 Last Admin: 09/08/19 20:26 Dose: 5 mg Polyethylene Glycol (Miralax) 17 gm PO DAILY PRN PRN Reason: Bowel Protocol Last Admin: 09/09/19 08:31 Dose: 17 gm Saccharomyces Boulardii (Florastor) 250 mg PO BIDWM [facility] Senna (Senokot) 8.6 mg PO DAILY PRN PRN Reason: Constipation Last Admin: 09/09/19 08:31 Dose: 8.6 mg Sodium Chloride (Normal Saline Flush 0.9%) 10 ml IVP PRN PRN PRN Reason: NEEDED PER PROVIDER ORDERS Sodium Chloride (Normal Saline Flush 0.9%) 10 ml IVP 0100,0900,1700 [facility] Last Admin: 09/09/19 08:32 Dose: 10 ml ALPRAZolam [Alprazolam] 0.25 mg PO TID PRN 09/05/19 Clopidogrel [Plavix] 75 mg PO DAILY 09/05/19 Gabapentin 300 mg PO QPM 09/05/19 Levothyroxine [Synthroid] 100 mcg PO QDAC 09/05/19 Losartan Potassium [Cozaar] 50 mg PO DAILY 09/05/19 Prazosin [Minipress] 1 mg PO BID 09/05/19 Simvastatin 20 mg PO QPM 09/05/19 Objective - Vital Signs/Intake & Output Reviewed Vital Signs: Yes Vital Signs: Vital Signs x48h Temp Pulse Resp BP BP BP Pulse Ox 09/09/19 06:21 61 174/37 H 09/09/19 06:00 55 L 158/40 H 09/09/19 05:45 54 L 174/40 H 174/40 H 09/09/19 05:30 55 L 172/38 H 09/09/19 05:27 54 L 157/44 H 09/09/19 05:20 52 L 155/41 H 09/09/19 05:19 169/40 H 09/09/19 05:15 192/50 H 09/09/19 05:00 36.5 C 49 L 16 192/50 H 97 09/09/19 02:49 54 L 177/48 H 09/09/19 00:53 37 C 55 L 14 181/45 H 97 Intake & Output: Intake & Output 09/06/19 09/07/19 09/08/19 09/09/19 23:59 23:59 23:59 23:59 Intake Total 852.563 8714.333 1341.667 Output Total 1600 Balance 818.652 4826.333 1341.667 - Objective General Appearance: positive: No acute distress, Alert, Other Eyes Bilateral: positive: PERRL, EOMI ENT: positive: No signs of dehydration Neck: positive: No JVD. negative: Stiff neck Respiratory: positive: Chest non-tender. negative: Wheezes, Rales, Rhonchi Cardiovascular: positive: Regular rate & rhythm, Systolic murmur. negative: Gallop/S4 Abdomen: positive: Non-tender, No organomegaly, Nml bowel sounds, No distention Skin: positive: Warm, Dry Extremities: positive: No pedal edema, Other (Elderly white female with some of her teeth missing, sparse wispy hair with alopecic scalp laying in bed. Reluctant to get up for breakfast. Right knee slightly boggy on palpation. But there is no ballottement of the kneecap no warmth no effusion. Passive range of motion intact. Active range of motion causes her to hurt with extension and she does not want to stand up to weight-bear. 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, Wearing glasses), Motor nml - Lab Results Fish Bones: 09/09/19 04:35 09/09/19 04:35 Other Labs: Lab Results x24hrs 09/09/19 09/09/19 09/09/19 Range/Units 04:35 04:35 04:35 WBC 4.2 L (4.8-10.8) x10^3/uL RBC 3.17 L (4.20-5.40) 10^6/uL Hgb 9.1 L (12.0-16.0) g/dL Hct 30.8 L (37.0-47.0) % MCV 97.2 (81.0-99.0) fL MCH 28.7 (27.0-31.0) pg MCHC 29.5 L (32.0-36.0) g/dL RDW 15.9 H (12.0-15.0) % Plt Count 190 (130-450) 10^3/uL MPV 10.9 H (7.9-10.8) fL Neut # (Auto) 2.5 (1.5-6.6) 10^3/uL Lymph # (Auto) 0.9 L (1.5-3.5) 10^3/uL [place] # (Auto) 0.4 (0.0-1.0) 10^3/uL Eos # (Auto) 0.4 (0.0-0.7) 10^3/uL Baso # (Auto) 0.0 (0.0-0.1) 10^3/uL Absolute Nucleated RBC 0.00 x10^3/uL Nucleated RBC % 0.0 /100WBC Sodium 139 (135-145) mmol/L Potassium 4.3 (3.5-5.0) mmol/L Chloride 113 H (101-111) mmol/L Carbon Dioxide 21 (21-32) mmol/L Anion Gap 5.0 L (6-13) BUN 30 H (6-20) mg/dL Creatinine 2.1 H (0.4-1.0) mg/dL Estimated GFR (MDRD) 22 L (>89) Glucose 92 (70-100) mg/dL Calcium 7.9 L (8.5-10.3) mg/dL Phosphorus 3.2 (2.5-4.6) mg/dL Magnesium 1.6 L (1.7-2.8) mg/dL B-Natriuretic Peptide 620 H (5-100) pg/mL - Diagnostic Imaging Diagnostic Imaging Results: positive: Final report reviewed Diagnostic Imaging Comments: RIGHT KNEE RADIOGRAPHY EXAM DATE: 09/08/2019 04:28 PM. CLINICAL HISTORY: Right knee pain with standing. COMPARISON: KNEE 3 VIEW BILAT 09/04/2019 7:35 PM. TECHNIQUE: 2 views. FINDINGS: Bones: Normal. No fractures or bone lesions. Joints: Tricompartment spurring. Complete loss of joint space medially with sclerosis. Small effusion. Soft Tissues: Unremarkable. IMPRESSION: Osteoarthritis, severe medially. Kellgren Gabe Grade 4. Kellgren and Gabe classification of osteoarthritis: Grade 0: no radiographic features of osteoarthritis are present Grade 1: doubtful joint space narrowing (JSN) and possible osteophytic lipping Grade 2: definite osteophytes and possible JSN on anteroposterior weight-bearing radiograph Grade 3: multiple osteophytes, definite JSN, sclerosis, possible bony deformity Grade 4: large osteophytes, marked JSN, severe sclerosis and definite bony deformity ABX Reporting Has patient been on IV antibiotics over the past 48 hours?: Yes Assessment/Plan - Problem List (1) NSTEMI (non-ST elevated myocardial infarction) Impression: Day #3: no arrhythmia or acute CHF Her troponin was noted to be elevated with her last admission but it was such a small bump that it was attributed to congestive heart failure in elderly patient with renal disease. Troponin was checked at 16: 43 12/ and was 1040. Repeat troponin was 1030 four hours later. At 2 am 12/ she 766.7. Today she is 423.5. She is being treated as an NSTEMI. Dr. Herbert asked if the patient should be transferred and discussed the case with cardiology that first night and cardiology felt that she could stay here. She is on Lovenox, beta-mounika, losartan, and atorvastatin. She is still on her Plavix. Plan: echo when available. Her last echocardiogram September 04 had an ejection fraction of 55 to 60%. This was before her myocardial infarction. trend troponin [facility] of the rise in creat. I will ask Cardiology when I can send her for SNF rehab since she cannot go home bc of weakness and they may need to cath her before PT can work with her. (2) Hospital-acquired pneumonia Conclusion/Plan: She does have a left-sided infiltrate on chest x-ray as well as a fever and cough. Although she is not hypoxic and has no white count, the concern is for hospital-acquired pneumonia given her recent hospitalization. Blood cultures are negative after 48 hours, Influienza screen is negative and she has been started on Zosyn IV and doxycycline IV to cover gram negatives, Pseudomonas, MRSA, atypicals. Day #3/7 We will not use azithromycin she had a prolonged QTC previously. Her pneumonia severity index scores greater than 100 given her age and renal dysfu nction which warrants an inpatient admission. Continue abx for total of 7 days. Per UptoDate: Generally, patients can be switched to oral therapy when they are hemodynamically stable, clinically improving, and able to tolerate oral medications. If a pathogen has been identified, the choice of antibiotic for oral therapy should be based on the organism's susceptibility pattern. If a pathogen has not been identified, the oral antibiotic selected should be the same (or in the same drug class) as the intravenous agent and should have good lung penetration Stop IV today and change to po Augmentin and doxycycline. (3) Generalized weakness Conclusion/Plan: Likely multifactorial secondary to physical deconditioning from hospitalization and her recent rhabdomyolysis. This may be compounded by the active infection as well. We hydrated her with IV fluids and treated her pneumonia. Physical therapy saw her 09/08 and her main problem with mobility was the right knee pain. She can scoot herself to the edge of the bed and stand. She is locking her right knee. At home she ambulates with a walker and that will be continued here. She likely will require detention facility on discharge (4) Right hip pain and right knee pain Conclusion/Plan: This is been present since her fall a few days ago. An x-ray of the right hip was negative for fracture. We are treating her pain with morphine IV and started on oxycodone p.o. She is neurovascularly intact but if her pain persisted or became more severe, considered obtaining a CT of the right hip to rule out a fracture that was not present on x-ray. So far pain in controlled and no CT needed. 09/08 her pain was mainly in the knee. Knee exam was essentially benign. Plain film showed severe OA. Plan: Steroid injection today at her request. She remembers an injection of her knee from April [address] Perkins in the emergency room and it gave her quite a bit of relief. (5) Hypertension Conclusion/Plan: She is currently hypertensive with systolics in the 150s-160s. We will hold her home losartan given yesterday since there may be a component of acute kidney injury. Will use hydralazine IV as needed. Qualifiers: Hypertension type: essential hypertension Qualified Code(s): I10 - Essential (primary) hypertension (6) Chronic renal insufficiency worsening Conclusion/Plan: She has renal insufficiency at baseline with a creatinine of around 2. Unclear if this to may be a component of acute kidney injury or not. We will hydrate her with IV lactated Ringer's and I did resume her Losartan Creatinine 1.9>2.0>2.1 I will stop losartan Continue to monitor daily Qualifiers: Chronic kidney disease stage: stage 4 (severe) Qualified Code(s): N18.4 - Chronic kidney disease, stage 4 (severe) (7) Rhabdomyolysis Conclusion/Plan: She was recently made of rhabdomyolysis and her CKs continue to improve and are now down to 311. We will continue to hydrate her at this time and hold her home simvastatin. Qualifiers: Rhabdomyolysis type: traumatic Encounter type: subsequent encounter Suman lified Code(s): T79.6XXD - Traumatic ischemia of muscle, subsequent encounter (8) Hypothyroidism Conclusion/Plan: Stable. We will continue her home Synthroid.
[2019-09-09] MEDS: AMOX/CLAV 500 MG/125 MG TABLET PO SCH ×2 (08:29→20:14)
[2019-09-09] MEDS: SENNA 8.6 MG TABLET PO PRN (08:31)
[2019-09-09] MEDS: CLOPIDOGREL 75 MG TABLET PO SCH (08:31)
[2019-09-09] MEDS: POLYETHYLENE GLYCOL 3350 17 GM PACKET PO PRN (08:31)
[2019-09-09] MEDS ORDERED: DOXYCYCLINE 100 MG TABLET PO SCH (09:00)
[2019-09-09] MEDS: METOPROLOL TARTRATE 25 MG TABLET PO SCH ×2 (09:02→20:14)
--- NOTE | 2019-09-09 10:30 | PROCEDURE REPORT ---
Hospitalist Procedure Note - Procedure Note Procedure Note: September 09, 2019 10:15 AM Patient has end-stage osteoarthritis of both knees. Right knee is very painful to stand and walk on it is limiting her mobility and her desire to get out of bed. Daughter and she asked me to please do an injection of her right knee. They had seen a good result from her right knee injection in April of this summer when she was seen by Dr. Jeter in the emergency room. Complications including bleeding at the site of injection, infection in the knee, reaction to medication discussed. Patient states she still wanted to move forward. Plain film reviewed from yesterday which shows end-stage osteoarthritis Arthrocentesis: Patient was in the supine position with leg completely extended. Anatomy was reviewed were ballottement of her kneecap was not present. However it was a boggy kneecap and knee. Skin was prepped with alcohol. Using a 22- gauge needle and a 10 cc syringe, There was no fluid that was present to withdraw. 1 cc of 40 mg Depo-Medrol, 2 cc bupivacaine, and 2 cc lidocaine were injected in the upper outer quadrant of below the knee cap. Patient tolerated the procedure well. There was no pain.
[2019-09-09] MEDS: SACCHAROMYCES BOULARDII 250 MG CAPSULE PO SCH (16:52)
[2019-09-09] MEDS: GABAPENTIN 300 MG CAPSULE PO SCH (20:14)
[2019-09-09] MEDS: ENOXAPARIN 80 MG/0.8 ML SYRINGE SUBQ SCH (20:15)
[2019-09-09] MEDS: ATORVASTATIN 40 MG TABLET PO SCH (20:15)
[2019-09-09] MEDS: DOXYCYCLINE 100 MG TABLET PO SCH (20:15)
[2019-09-10] MEDS: SODIUM CHLORIDE FLUSH 0.9% 10 ML SYRINGE IVP SCH ×3 (00:43→17:59)
[2019-09-10 05:42] LABS: BASOPHILS % (AUTO) 0.2 %; HGB - HEMOGLOBIN 9.6 g/dL (12.0-16.0); LYMPHOCYTES # (AUTO) 0.5 10^3/uL (1.5-3.5); LYMPHOCYTES % (AUTO) 11.9 %; MEAN CORPUSCULAR HEMOGLOBIN 28.2 pg (27.0-31.0); MEAN CORPUSCULAR HGB CONC 30.1 g/dL (32.0-36.0); MEAN CORPUSCULAR VOLUME 93.5 fL (81.0-99.0); MEAN PLATELET VOLUME 11.3 fL (7.9-10.8); MONOCYTES # (AUTO) 0.2 10^3/uL (0.0-1.0); MONOCYTES % (AUTO) 5.9 %; NEUTROPHILS # (AUTO) 3.3 10^3/uL (1.5-6.6); NEUTROPHILS % (AUTO) 81.8 %; PLT - PLATELET COUNT 205 10^3/uL (130-450); RED BLOOD COUNT 3.41 10^6/uL (4.20-5.40); RED CELL DISTRIBUTION WIDTH 15.5 % (12.0-15.0)
[2019-09-10] MEDS: hydrALAZINE INJ 20 MG/ML VIAL IVP PRN ×2 (05:44→19:00)
[2019-09-10] MEDS: SODIUM CHLORIDE FLUSH 0.9% 10 ML SYRINGE IVP PRN ×3 (05:50→19:01)
[2019-09-10] MEDS: LEVOTHYROXINE 100 MCG TABLET PO SCH (05:55)
[2019-09-10 05:57] LABS: CALCIUM 8.6 mg/dL (8.5-10.3); CREATININE 1.8 mg/dL (0.4-1.0); MAGNESIUM 1.4 mg/dL (1.7-2.8); PHOSPHORUS 2.8 mg/dL (2.5-4.6)
--- NOTE | 2019-09-10 08:13 | PROVIDER PROGRESS NOTE ---
Subjective - Prog Note Date Prog Note Date: 09/10/19 Prog Note Time: 13:29 - Subjective Subjective: I have called Dr. Pineda's group ([facility]) to see if this patient can move forward with PT. Dr. Pineda was gone for the day and Dr. Ryan More was radiology interventional physician. Ok for her to progress. She's tired but denies cp, has mild valencia. Not severe. no palpitations. Current Medications - Current Medications Current Medications: Active Medications Acetaminophen (Tylenol) 650 mg PO Q4HR PRN PRN Reason: Pain 1 to 4 Last Admin: 09/08/19 15:39 Dose: 650 mg Amoxicillin/Clavulanate Potassium (Augmentin 500/125) 1 tab PO BID [facility] Last Admin: 09/09/19 20:14 Dose: 1 tab Atorvastatin Calcium (Lipitor) 40 mg PO QPM [facility] Last Admin: 09/09/19 20:15 Dose: 40 mg Clopidogrel Bisulfate (Plavix) 75 mg PO DAILY [facility] Last Admin: 09/09/19 08:31 Dose: 75 mg Doxycycline Hyclate (Vibramycin) 100 mg PO BID [facility] Last Admin: 09/09/19 20:15 Dose: 100 mg Enoxaparin Sodium (Lovenox) 70 mg SUBQ Q24H [facility] Last Admin: 09/09/19 20:15 Dose: 70 mg Gabapentin (Neurontin) 300 mg PO QPM [facility] Last Admin: 09/09/19 20:14 Dose: 300 mg Hydralazine HCl (Apresoline Inj) 10 mg IVP Q6H PRN PRN Reason: NEEDED PER PROVIDER ORDERS Last Admin: 09/10/19 05:44 Dose: 10 mg Levothyroxine Sodium (Synthroid) 100 mcg PO QDAC [facility] Last Admin: 09/10/19 05:55 Dose: 100 mcg Metoprolol Tartrate (Lopressor) 25 mg PO BID [facility] Last Admin: 09/09/19 20:14 Dose: 25 mg Mineral Oil (Cavilon) 1 applic TOP PRN PRN PRN Reason: Skin Care Last Admin: 09/08/19 20:14 Dose: 1 applic Morphine Sulfate (Morphine (Carpuject)) 2 mg IVP Q2HR PRN PRN Reason: Pain 8 to 10 Last Admin: 09/07/19 21:13 Dose: 2 mg Ondansetron HCl (Zofran Inj) 4 mg IVP Q6HR PRN PRN Reason: Nausea / Vomiting Oxycodone HCl (Roxicodone) 5 mg PO Q4HR PRN PRN Reason: Pain 5 to 7 Last Admin: 09/08/19 20:26 Dose: 5 mg Polyethylene Glycol (Miralax) 17 gm PO DAILY PRN PRN Reason: Bowel Protocol Last Admin: 09/09/19 08:31 Dose: 17 gm Saccharomyces Boulardii (Florastor) 250 mg PO BIDWM [facility] Last Admin: 09/09/19 16:52 Dose: 250 mg Senna (Senokot) 8.6 mg PO DAILY PRN PRN Reason: Constipation Last Admin: 09/09/19 08:31 Dose: 8.6 mg Sodium Chloride (Normal Saline Flush 0.9%) 10 ml IVP PRN PRN PRN Reason: NEEDED PER PROVIDER ORDERS Last Admin: 09/10/19 05:55 Dose: 10 ml Sodium Chloride (Normal Saline Flush 0.9%) 10 ml IVP 0100,0900,1700 [facility] Last Admin: 09/10/19 00:43 Dose: 10 ml ALPRAZolam [Alprazolam] 0.25 mg PO TID PRN 09/05/19 Clopidogrel [Plavix] 75 mg PO DAILY 09/05/19 Gabapentin 300 mg PO QPM 09/05/19 Levothyroxine [Synthroid] 100 mcg PO QDAC 09/05/19 Losartan Potassium [Cozaar] 50 mg PO DAILY 09/05/19 Prazosin [Minipress] 1 mg PO BID 09/05/19 Simvastatin 20 mg PO QPM 09/05/19 Objective - Vital Signs/Intake & Output Reviewed Vital Signs: Yes Vital Signs: Vital Signs x48h Temp Pulse Resp BP BP Pulse Ox 09/10/19 07:02 157/33 H 09/10/19 06:50 161/28 H 09/10/19 06:34 181/38 H 09/10/19 06:10 173/34 H 09/10/19 06:03 50 L 183/36 H 09/10/19 05:56 194/31 H 09/10/19 05:52 40 L 189/35 H 09/10/19 05:44 186/34 H 09/10/19 05:42 186/34 H 09/10/19 05:21 36.5 C 47 L 17 99 09/10/19 00:56 37.1 C 54 L 18 168/71 H 97 Intake & Output: Intake & Output 09/07/19 09/08/19 09/09/19 09/10/19 23:59 23:59 23:59 23:59 Intake Total 972.310 7745.333 3350.000 Output Total 1600 800 50 Balance 639.445 7197.333 2550.000 -50 - Objective General Appearance: positive: No acute distress, Alert Eyes Bilateral: positive: PERRL, EOMI ENT: positive: No signs of dehydration Neck: positive: No JVD. negative: Stiff neck Respiratory: positive: Chest non-tender. negative: Wheezes, Rales, Rhonchi Cardiovascular: positive: Regular rate & rhythm. negative: Gallop/S4, Friction rub Abdomen: positive: Non-tender, No organomegaly, Nml bowel sounds, No distention Skin: positive: Warm, Dry Extremities: positive: Non-tender (her right knee feels no pain. No side effects from injeciton noted), Pedal edema (mild) Neurologic/Psychiatric: positive: Oriented x3 (but is forgetful and processes slowly), CN's nml (2-12), Motor nml - Lab Results Fish Bones: 09/10/19 05:21 09/10/19 05:21 Other Labs: Lab Results x24hrs 09/10/19 09/10/19 09/10/19 Range/Units 05:21 05:21 05:21 WBC 4.0 L (4.8-10.8) x10^3/uL RBC 3.41 L (4.20-5.40) 10^6/uL Hgb 9.6 L (12.0-16.0) g/dL Hct 31.9 L (37.0-47.0) % MCV 93.5 (81.0-99.0) fL MCH 28.2 (27.0-31.0) pg MCHC 30.1 L (32.0-36.0) g/dL RDW 15.5 H (12.0-15.0) % Plt Count 205 (130-450) 10^3/uL MPV 11.3 H (7.9-10.8) fL Neut # (Auto) 3.3 (1.5-6.6) 10^3/uL Lymph # (Auto) 0.5 L (1.5-3.5) 10^3/uL Hughes # (Auto) 0.2 (0.0-1.0) 10^3/uL Eos # (Auto) 0.0 (0.0-0.7) 10^3/uL Baso # (Auto) 0.0 (0.0-0.1) 10^3/uL Absolute Nucleated RBC 0.00 x10^3/uL Nucleated RBC % 0.0 /100WBC Sodium 139 (135-145) mmol/L Potassium 4.3 (3.5-5.0) mmol/L Chloride 113 H (101-111) mmol/L Carbon Dioxide 21 (21-32) mmol/L Anion Gap 5.0 L (6-13) BUN 32 H (6-20) mg/dL Creatinine 1.8 H (0.4-1.0) mg/dL Estimated GFR (MDRD) 27 L (>89) Glucose 147 H (70-100) mg/dL Calcium 8.6 (8.5-10.3) mg/dL Phosphorus 2.8 (2.5-4.6) mg/dL Magnesium 1.4 L (1.7-2.8) mg/dL Troponin I High Sens (2.3-14.8) ng/L B-Natriuretic Peptide 1989 H (5-100) pg/mL 09/09/19 Range/Units 07:56 WBC (4.8-10.8) x10^3/uL RBC (4.20-5.40) 10^6/uL Hgb (12.0-16.0) g/dL Hct (37.0-47.0) % MCV (81.0-99.0) fL MCH (27.0-31.0) pg MCHC (32.0-36.0) g/dL RDW (12.0-15.0) % Plt Count (130-450) 10^3/uL MPV (7.9-10.8) fL Neut # (Auto) (1.5-6.6) 10^3/uL Lymph # (Auto) (1.5-3.5) 10^3/uL Hughes # (Auto) (0.0-1.0) 10^3/uL Eos # (Auto) (0.0-0.7) 10^3/uL Baso # (Auto) (0.0-0.1) 10^3/uL Absolute Nucleated RBC x10^3/uL Nucleated RBC % /100WBC Sodium (135-145) mmol/L Potassium (3.5-5.0) mmol/L Chloride (101-111) mmol/L Carbon Dioxide (21-32) mmol/L Anion Gap (6-13) BUN (6-20) mg/dL Creatinine (0.4-1.0) mg/dL Estimated GFR (MDRD) (>89) Glucose (70-100) mg/dL Calcium (8.5-10.3) mg/dL Phosphorus (2.5-4.6) mg/dL Magnesium (1.7-2.8) mg/dL Troponin I High Sens 423.5 H* (2.3-14.8) ng/L B-Natriuretic Peptide (5-100) pg/mL ABX Reporting Has patient been on IV antibiotics over the past 48 hours?: No Assessment/Plan - Problem List (1) NSTEMI (non-ST elevated myocardial infarction) Impression: Day #4: no arrhythmia or acute CHF but her BNP is elevated. Her troponin was noted to be elevated with her last admission but it was such a small bump that it was attributed to congestive heart failure in elderly patient with renal disease. Troponin was checked at 16:43 09/07 > 1040. Repeat troponin was 1030 four hours later. 09/08 766.7. 09/09 423.5. She is being treated as an NSTEMI. Dr. Herbert asked if the patient should be transferred and discussed the case with cardiology that first night and cardiology felt that she could stay here. She is on Lovenox, beta-mounika, and atorvastatin. Losartan briefly resumed yesterday but her creat was up so I stopped it. She is still on her Plavix. Plan: echo today. Her last echocardiogram September 04 had an ejection fraction of 55 to 60%. This was before her myocardial infarction. trend troponin Cardiology, Dr. More, feels she can safely go for SNF rehab since she cannot go home bc of weakness and they can see her after she leaves SNF or appt can be made while in SNF (2) Hospital-acquired pneumonia Conclusion/Plan: She does have a left-sided infiltrate on chest x-ray as well as a fever and cough. Although she is not hypoxic and has no white count, the concern is for hospital-acquired pneumonia given her recent hospitalization. Blood cultures are negative after 48 hours, Influienza screen is negative and she has been started on Zosyn IV and doxycycline IV to cover gram negatives, Pseudomonas, MRSA, atypicals. She completed Day #3/7 of zosyn and doxy 09/09. We did not use azithromycin she had a prolonged QTC previously. Her pneumonia severity index scores greater than 100 given her age and renal dysfunction which warrants an inpatient admission. Continue abx for total of 7 days. Per UptoDate: Generally, patients can be switched to oral therapy when they are hemodynamically stable, clinically improving, and able to tolerate oral medications. If a pathogen has been identified, the choice of antibiotic for oral therapy should be based on the organism's susceptibility pattern. If a pathogen has not been identified, the oral antibiotic selected should be the same (or in the same drug class) as the intravenous agent and should have good lung penetration IV abx stopped 09/09 and changed to po Augmentin and doxycycline, Day #4/7 for abx. So far no fever, WBC is low and nml O2 sat on RA. (3) Generalized weakness Conclusion/Plan: Likely multifactorial secondary to physical deconditioning from hospitalization and her recent rhabdomyolysis. This may be compounded by the active infection as well. We hydrated her with IV fluids and treated her pneumonia. Physical therapy saw her 09/08 and her main problem with mobility was the right knee pain. She can scoot herself to the edge of the bed and stand. She is locking her right knee. At home she ambulates with a walker and that will be continued here. She likely will require detention facility on discharge (4) Right hip pain and right knee pain Conclusion/Plan: This is been present since her fall a few days ago. An x-ray of the right hip was negative for fracture. We are treating her pain with morphine IV and started on oxycodone p.o. She is neurovascularly intact but if her pain persisted or became more severe, considered obtaining a CT of the right hip to rule out a fracture that was not present on x-ray. So far pain in controlled and no CT needed. 09/08 her pain was mainly in the knee. Knee exam was essentially benign. Plain film showed severe OA. 09/09 Right knee injected with depomedrol, bupivicaine and lidocaine. Plan: start to stand and sit in chair, work w PT (5) Hypertension Conclusion/Plan: She is currently hypertensive with systolics in the 150s-160s. I held her home losartan 09/09 that had been given 09/08 since there may be a component of acute kidney injury. Will use hydralazine IV as needed. Qualifiers: Hypertension type: essential hypertension Qualified Code(s): I10 - Essential (primary) hypertension (6) Chronic renal insufficiency improving today Conclusion/Plan: She has renal insufficiency at baseline with a creatinine of around 2. Unclear if this to may be a component of acute kidney injury or not. We will hydrate her with IV lactated Ringer's and I did resume her Losartan Creatinine 1.9>2.0>2.1>1.8 I stopped losartan for now Continue to monitor daily Qualifiers: Chronic kidney disease stage: stage 4 (severe) Qualified Code(s): N18.4 - Chronic kidney disease, stage 4 (severe) (7) Rhabdomyolysis Conclusion/Plan: She was recently made of rhabdomyolysis and her CKs continue to improve and are now down to 311. We will continue to hydrate her at this time and hold her home simvastatin. Qualifiers: Rhabdomyolysis type: traumatic Encounter type: subsequent encounter Qualified Code(s): T79.6XXD - Traumatic ischemia of muscle, subsequent encounter (8) Hypothyroidism Conclusion/Plan: Stable. We will continue her home Synthroid.
[2019-09-10] MEDS: SACCHAROMYCES BOULARDII 250 MG CAPSULE PO SCH ×2 (10:41→17:58)
[2019-09-10] MEDS: CLOPIDOGREL 75 MG TABLET PO SCH (10:41)
[2019-09-10] MEDS: DOXYCYCLINE 100 MG TABLET PO SCH ×2 (10:41→20:08)
[2019-09-10] MEDS: AMOX/CLAV 500 MG/125 MG TABLET PO SCH ×2 (10:41→20:08)
[2019-09-10] MEDS: METOPROLOL TARTRATE 25 MG TABLET PO SCH (10:43)
[2019-09-10] MEDS: SENNA 8.6 MG TABLET PO PRN (14:59)
[2019-09-10] MEDS: POLYETHYLENE GLYCOL 3350 17 GM PACKET PO PRN (14:59)
[2019-09-10] MEDS: MAGNESIUM OXIDE 400 MG TABLET PO SCH (14:59)
[2019-09-10] MEDS: GABAPENTIN 300 MG CAPSULE PO SCH (20:06)
[2019-09-10] MEDS: oxyCODONE 5 MG TABLET PO PRN (20:06)
[2019-09-10] MEDS: ATORVASTATIN 40 MG TABLET PO SCH (20:08)
[2019-09-10] MEDS ORDERED: ALPRAZolam 0.25 MG TABLET PO PRN (20:12)
[2019-09-10] MEDS ORDERED: METOPROLOL TARTRATE 25 MG TABLET PO SCH (21:00)
[2019-09-10] MEDS: ENOXAPARIN 80 MG/0.8 ML SYRINGE SUBQ SCH (21:42)
[2019-09-11] MEDS: oxyCODONE 5 MG TABLET PO PRN ×2 (00:43→11:33)
[2019-09-11] MEDS: ACETAMINOPHEN 325 MG TABLET PO PRN (00:43)
[2019-09-11] MEDS: SODIUM CHLORIDE FLUSH 0.9% 10 ML SYRINGE IVP SCH ×3 (00:43→17:24)
[2019-09-11] MEDS: LEVOTHYROXINE 100 MCG TABLET PO SCH (05:53)
[2019-09-11] MEDS: hydrALAZINE INJ 20 MG/ML VIAL IVP PRN (06:28)
[2019-09-11] MEDS ORDERED: hydrALAZINE INJ 20 MG/ML VIAL IVP PRN (07:59)
[2019-09-11] MEDS: SACCHAROMYCES BOULARDII 250 MG CAPSULE PO SCH ×2 (08:35→17:24)
[2019-09-11] MEDS: MAGNESIUM OXIDE 400 MG TABLET PO SCH (08:35)
[2019-09-11] MEDS: AMOX/CLAV 500 MG/125 MG TABLET PO SCH ×2 (08:35→21:27)
[2019-09-11] MEDS: CLOPIDOGREL 75 MG TABLET PO SCH (08:35)
[2019-09-11] MEDS: SODIUM CHLORIDE FLUSH 0.9% 10 ML SYRINGE IVP PRN ×2 (08:42→11:35)
[2019-09-11] MEDS ORDERED: METOPROLOL TARTRATE 25 MG TABLET PO SCH (09:00)
[2019-09-11] MEDS ORDERED: SPIRONOLACTONE 25 MG TABLET PO SCH (09:00)
[2019-09-11] MEDS ORDERED: DOXYCYCLINE 100 MG TABLET PO SCH (09:00)
[2019-09-11 09:10] LABS: CALCIUM 9.1 mg/dL (8.5-10.3); CREATININE 1.9 mg/dL (0.4-1.0); MAGNESIUM 1.4 mg/dL (1.7-2.8)
[2019-09-11 09:13] LABS: BASOPHILS % (AUTO) 0.6 %; EOSINOPHILS # (AUTO) 0.2 10^3/uL (0.0-0.7); EOSINOPHILS % (AUTO) 2.3 %; HGB - HEMOGLOBIN 10.9 g/dL (12.0-16.0); LYMPHOCYTES # (AUTO) 1.2 10^3/uL (1.5-3.5); LYMPHOCYTES % (AUTO) 19.3 %; MEAN CORPUSCULAR HEMOGLOBIN 29.2 pg (27.0-31.0); MEAN CORPUSCULAR HGB CONC 31.1 g/dL (32.0-36.0); MEAN CORPUSCULAR VOLUME 94.1 fL (81.0-99.0); MONOCYTES # (AUTO) 0.4 10^3/uL (0.0-1.0); MONOCYTES % (AUTO) 5.9 %; NEUTROPHILS # (AUTO) 4.6 10^3/uL (1.5-6.6); NEUTROPHILS % (AUTO) 71.4 %; PLT - PLATELET COUNT 265 10^3/uL (130-450); RED BLOOD COUNT 3.73 10^6/uL (4.20-5.40); RED CELL DISTRIBUTION WIDTH 15.9 % (12.0-15.0); WHITE BLOOD COUNT 6.4 x10^3/uL (4.8-10.8)
[2019-09-11] MEDS ORDERED: MAGNESIUM SULFATE 2 GRAM 2 GM/50 ML BAG IV ONE (10:37)
[2019-09-11] MEDS: SPIRONOLACTONE 25 MG TABLET PO SCH (11:33)
--- NOTE | 2019-09-11 12:39 | PROVIDER PROGRESS NOTE ---
Assessment/Plan - Problem List (1) NSTEMI (non-ST elevated myocardial infarction) Assessment/Plan: troponin continue running down. pt denies chest pain, palpitation. continue home meds Plavix, and Lovenex until d/c. pt present significant bradycardia HR was 45-50, hold Metoprolol. Cardiology, Dr. More was contacted by Dr. Sofia, he felt she can safely go for SNF rehab since she cannot go home bc of weakness and they can see her after she leaves SNF or appt can be made while in SNF (2) Hospital-acquired pneumonia Conclusion/Plan: continue to finish the antibiotics course with Augmentin and doxycycline, dosage adjusted with renal clearance (3) Generalized weakness Conclusion/Plan: plan to d/c to SNF. now it is pending for placement. the placement is likely not happened on today per long term care social worker report continue PT/OT, continue consult with long term care social worker for placement. (4) Right hip pain and right knee pain Conclusion/Plan: pt report pain is better start to stand and sit in chair, work w PT (5) Hypertension Conclusion/Plan: pt's BP is elevated today. pt had bradycardia, so Metoprolol is hold. reconcile home meds Losartan, add lower dosage of Spironolactine continue hydralazine PRN (6) Chronic renal insufficiency improving today Conclusion/Plan: stable, today creatinine is 1.9 continue hydration and lab monitor, hold nephrological toxical agents (7) Rhabdomyolysis Conclusion/Plan: hx of Rhabdomyolysis, stable (8) Hypothyroidism Conclusion/Plan: Stable. continue her home Synthroid. - Current Meds Current Meds: Current Medications Generic Name Dose Route Start Last Admin Trade Name Freq PRN Reason Stop Dose Admin Acetaminophen 650 mg 09/07/19 18:21 09/11/19 00:43 Tylenol PO 650 mg Q4HR PRN Administration Pain 1 to 4 Amoxicillin/Clavulanate Potassium 1 tab 09/09/19 09:00 09/11/19 08:35 Augmentin 500/125 PO 1 tab BID JOSH Administration Atorvastatin Calcium 40 mg 09/08/19 07:25 09/10/19 20:08 Lipitor PO 40 mg QPM JOSH Administration Clopidogrel Bisulfate 75 mg 09/08/19 09:00 09/11/19 08:35 Plavix PO 75 mg DAILY JOSH Administration Doxycycline Hyclate 100 mg 09/11/19 09:00 09/11/19 08:35 Vibramycin PO 100 mg DAILY JOSH Administration Enoxaparin Sodium 70 mg 09/07/19 20:00 09/10/19 21:42 Lovenox SUBQ 70 mg Q24H JOSH Administration Gabapentin 300 mg 09/07/19 21:00 09/10/19 20:06 Neurontin PO 300 mg QPM JOSH Administration Hydralazine HCl 10 mg 09/11/19 07:59 09/11/19 11:34 Apresoline Inj IVP 10 mg Q6H PRN Administration NEEDED PER PROVIDER ORDERS Levothyroxine Sodium 100 mcg 09/08/19 07:00 09/11/19 05:53 Synthroid PO 100 mcg QDAC JOSH Administration Magnesium Oxide 400 mg 09/10/19 15:00 09/11/19 08:35 Mag Ox PO 400 mg DAILYWM JOSH Administration Mineral Oil 1 applic 09/08/19 19:44 09/08/19 20:14 Cavilon TOP 1 applic PRN PRN Administration Skin Care Morphine Sulfate 2 mg 09/07/19 18:21 09/07/19 21:13 Morphine (Carpuject) IVP 2 mg Q2HR PRN Administration Pain 8 to 10 Oxycodone HCl 5 mg 09/07/19 18:21 09/11/19 11:33 Roxicodone PO 5 mg Q4HR PRN Administration Pain 5 to 7 Polyethylene Glycol 17 gm 09/07/19 18:38 09/10/19 14:59 Miralax PO 17 gm DAILY PRN Administration Bowel Protocol Saccharomyces Boulardii 250 mg 09/09/19 17:00 09/11/19 08:35 Florastor PO 250 mg BIDWM JOSH Administration Senna 8.6 mg 09/07/19 18:38 09/10/19 14:59 Senokot PO 8.6 mg DAILY PRN Administration Constipation Sodium Chloride 10 ml 09/07/19 18:21 09/11/19 11:35 Normal Saline Flush 0.9% IVP 10 ml PRN PRN Administration NEEDED PER PROVIDER ORDERS Sodium Chloride 10 ml 09/08/19 01:00 09/11/19 06:28 Normal Saline Flush 0.9% IVP 10 ml 0100,0900,1700 JOSH Administration Spironolactone 12.5 mg 09/11/19 10:45 09/11/19 11:33 Aldactone PO 12.5 mg DAILY JOSH Administration - Lab Result Fish Bone Diagrams: 09/11/19 08:03 09/11/19 08:31 - Additional Planning My Orders: My Active Orders 09/11/19 07:59 hydrALAZINE INJ [Apresoline Inj] 10 mg IVP Q6H PRN 09/11/19 09:00 Doxycycline [Vibramycin] 100 mg PO DAILY 09/11/19 10:45 Spironolactone [Aldactone] 12.5 mg PO DAILY 09/11/19 14:00 BNP - B-NATRIURETIC PEPTIDE [IAI] Timed 09/12/19 05:00 BMP - BASIC METABOLIC PANEL [CHEM] DAILYLAB CBC - COMP BLD CT W/AUTO DIFF [HEME] DAILYLAB 09/13/19 05:00 BMP - BASIC METABOLIC PANEL [CHEM] DAILYLAB CBC - COMP BLD CT W/AUTO DIFF [HEME] DAILYLAB 09/14/19 05:00 BMP - BASIC METABOLIC PANEL [CHEM] DAILYLAB CBC - COMP BLD CT W/AUTO DIFF [HEME] DAILYLAB 09/15/19 05:00 BMP - BASIC METABOLIC PANEL [CHEM] DAILYLAB CBC - COMP BLD CT W/AUTO DIFF [HEME] DAILYLAB Subjective - Subjective Patient Reports: Feeling Better Objective Vital Signs: Vital Signs - 24 hr 09/10/19 09/10/19 09/10/19 12:44 16:56 19:00 Temperature 36.8 C 36.8 C Heart Rate [ 43 L 54 L Brachial] Respiratory 10 L 16 Rate Blood Pressure 187/44 H Blood Pressure [Left Brachial artery] Blood Pressure 175/33 H 189/38 H [Right Brachial artery] O2 Saturation 99 99 09/10/19 09/10/19 09/10/19 19:16 19:30 19:33 Temperature Heart Rate [ 56 L 70 Brachial] Respiratory Rate Blood Pressure 151/43 H Blood Pressure [Left Brachial artery] Blood Pressure 184/39 H 108/77 [Right Brachial artery] O2 Saturation 09/10/19 09/10/19 09/11/19 19:56 20:39 00:05 Temperature 36.8 C 36.8 C Heart Rate [ 59 L 54 L 64 Brachial] Respiratory 18 24 17 Rate Blood Pressure Blood Pressure 151/43 H [Left Brachial artery] Blood Pressure 169/42 H 189/53 H [Right Brachial artery] O2 Saturation 99 96 09/11/19 09/11/19 09/11/19 00:38 05:26 06:28 Temperature 36.7 C Heart Rate [ 57 L 54 L Brachial] Respiratory 17 18 Rate Blood Pressure 212/48 H Blood Pressure [Left Brachial artery] Blood Pressure 163/56 H 190/45 H 212/48 H [Right Brachial artery] O2 Saturation 97 09/11/19 09/11/19 09/11/19 06:33 06:38 06:43 Temperature Heart Rate [ 45 L 52 L 50 L Brachial] Respiratory 18 18 18 Rate Blood Pressure Blood Pressure [Left Brachial artery] Blood Pressure 193/33 H 181/37 H 177/44 H [Right Brachial artery] O2 Saturation 09/11/19 09/11/19 09/11/19 06:48 06:58 07:30 Temperature 36.5 C Heart Rate [ 54 L Brachial] Respiratory 18 Rate Blood Pressure 193/43 H Blood Pressure [Left Brachial artery] Blood Pressure 180/41 H 188/35 H 193/43 H [Right Brachial artery] O2 Saturation 99 09/11/19 09/11/19 11:26 11:34 Temperature 36.8 C Heart Rate [ 58 L Brachial] Respiratory 18 Rate Blood Pressure 193/47 H Blood Pressure [Left Brachial artery] Blood Pressure 194/47 H [Right Brachial artery] O2 Saturation 99 Oxygen O2 Source Room air I&O (Last 24 Hrs): Intake and Output Totals x24h 09/09/19 09/10/19 09/11/19 23:59 23:59 23:59 Intake Total 3350.000 1018 480 Output Total 800 654 450 Balance 2550.000 364 30 General: Alert, Oriented x3, No acute distress HEENT: Atraumatic Neck: Supple Lymphatic: no adenopathy Neuro: Alert, Non Focal, Oriented Times 3 Cardiovascular: Regular rate, Normal S1, Normal S2 Respiratory: Chest non-tender, No respiratory distress, Breath sounds nml Abdomen: Normal bowel sounds, Soft Extremities: Normal pulses - Results Results: Laboratory Results WBC 6.4 x10^3/uL (4.8-10.8) 09/11/19 08:03 RBC 3.73 10^6/uL (4.20-5.40) L 09/11/19 08:03 Hgb 10.9 g/dL (12.0-16.0) L 09/11/19 08:03 Hct 35.1 % (37.0-47.0) L 09/11/19 08:03 MCV 94.1 fL (81.0-99.0) 09/11/19 08:03 MCH 29.2 pg (27.0-31.0) 09/11/19 08:03 MCHC 31.1 g/dL (32.0-36.0) L 09/11/19 08:03 RDW 15.9 % (12.0-15.0) H 09/11/19 08:03 Plt Count 265 10^3/uL (130-450) 09/11/19 08:03 MPV 11.0 fL (7.9-10.8) H 09/11/19 08:03 Neut # (Auto) 4.6 10^3/uL (1.5-6.6) 09/11/19 08:03 Lymph # (Auto) 1.2 10^3/uL (1.5-3.5) L 09/11/19 08:03 Catron # (Auto) 0.4 10^3/uL (0.0-1.0) 09/11/19 08:03 Eos # (Auto) 0.2 10^3/uL (0.0-0.7) 09/11/19 08:03 Baso # (Auto) 0.0 10^3/uL (0.0-0.1) 09/11/19 08:03 Absolute Nucleated RBC 0.00 x10^3/uL 09/11/19 08:03 Nucleated RBC % 0.0 /100WBC 09/11/19 08:03 ESR 18 mm/Hr (0-30) 09/08/19 01:55 Sodium 141 mmol/L (135-145) 09/11/19 08:31 Potassium 4.5 mmol/L (3.5-5.0) 09/11/19 08:31 Chloride 112 mmol/L (101-111) H 09/11/19 08:31 Carbon Dioxide 21 mmol/L (21-32) 09/11/19 08:31 Anion Gap 8.0 (6-13) 09/11/19 08:31 BUN 36 mg/dL (6-20) H 09/11/19 08:31 Creatinine 1.9 mg/dL (0.4-1.0) H 09/11/19 08:31 Estimated GFR (MDRD) 25 (>89) L 09/11/19 08:31 Glucose 103 mg/dL (70-100) H 09/11/19 08:31 Lactic Acid 1.0 mmol/L (0.5-2.2) 09/07/19 16:43 Calcium 9.1 mg/dL (8.5-10.3) 09/11/19 08:31 Phosphorus 2.8 mg/dL (2.5-4.6) 09/10/19 05:21 Magnesium 1.4 mg/dL (1.7-2.8) L 09/11/19 08:31 Total Bilirubin 0.9 mg/dL (0.2-1.0) 09/07/19 16:43 AST 23 IU/L (10-42) 09/07/19 16:43 ALT 15 IU/L (10-60) 09/07/19 16:43 Alkaline Phosphatase 36 IU/L (42-121) L 09/07/19 16:43 Total Creatine Kinase 311 IU/L (22-269) H 09/07/19 16:43 Troponin I High Sens 244.8 ng/L (2.3-14.8) H* 09/11/19 Unknown C-Reactive Protein 4.5 mg/dL (0-1.0) H 09/07/19 20:03 B-Natriuretic Peptide 2119 pg/mL (5-100) H 09/11/19 06:22 Total Protein 5.6 g/dL (6.7-8.2) L 09/07/19 16:43 Albumin 2.9 g/dL (3.2-5.5) L 09/07/19 16:43 Globulin 2.7 g/dL (2.1-4.2) 09/07/19 16:43 Albumin/Globulin Ratio 1.1 (1.0-2.2) 09/07/19 16:43 Lipase 24 U/L (22-51) 09/07/19 16:43 Urine Color YELLOW 09/07/19 18:23 Urine Clarity CLEAR (CLEAR) 09/07/19 18:23 Urine pH 5.5 PH (5.0-7.5) 09/07/19 18:23 Ur Specific Burke 1.020 (1.002-1.030) 09/07/19 18:23 Urine Protein TRACE mg/dL (NEGATIVE) 09/07/19 18:23 Urine Glucose (UA) NEGATIVE mg/dL (NEGATIVE) 09/07/19 18: Urine Ketones NEGATIVE mg/dL (NEGATIVE) 09/07/19 18:23 Urine Occult Blood TRACE-INTA (NEGATIVE) 09/07/19 18: Urine Nitrite NEGATIVE (NEGATIVE) 09/07/19 18: Urine Bilirubin NEGATIVE (NEGATIVE) 09/07/19 18: Urine Urobilinogen 0.2 (NORMAL) E.U./dL (NORMAL) 09/07/19 18:23 Ur Leukocyte Esterase NEGATIVE (NEGATIVE) 09/07/19 18:23 Ur Microscopic Review NOT INDICATED 09/07/19 18:23 Urine Culture Comments NOT INDICATED 09/07/19 18:23 Influenza A (Rapid) Negative (Negative) 09/07/19 19:30 Influenza B (Rapid) Negative (Negative) 09/07/19 19:30 Sepsis Event Note (H) - Evaluation Current Stage of Sepsis: Ruled out ABX Reporting Has patient been on IV antibiotics over the past 48 hours?: Yes
[2019-09-11] MEDS: LOSARTAN 50 MG TABLET PO SCH (14:21)
[2019-09-11] MEDS: PRAZOSIN 1 MG CAPSULE PO SCH ×2 (14:21→21:26)
--- NOTE | 2019-09-11 20:23 | XRAY Report ---
Reason: left up chest small bump with pain Procedure Date: 09/11/2019 Accession Number: [id number] / [id number] Procedure: XR - Chest 1 View X-Ray CPT Code: 58870 Final Report FULL RESULT: EXAM: CHEST RADIOGRAPHY EXAM DATE: 09/11/2019 06:19 PM. CLINICAL HISTORY: Painful lump. COMPARISON: CHEST 1 VIEW 09/07/2019 4:35 PM. TECHNIQUE: 1 view. FINDINGS: Lungs/Pleura: Decreased left retrocardiac density. Atelectasis or scarring left base. Trace bilateral effusions. Otherwise clear. No consolidation or pneumothorax. Mediastinum: Mild cardiomegaly, unchanged. Upper lobe vessels not distended. Other: Osteopenia, degenerative changes. IMPRESSION: Trace pleural effusions. RADIA
[2019-09-11] MEDS: ATORVASTATIN 40 MG TABLET PO SCH (21:26)
[2019-09-11] MEDS: ENOXAPARIN 80 MG/0.8 ML SYRINGE SUBQ SCH (21:26)
[2019-09-11] MEDS: GABAPENTIN 300 MG CAPSULE PO SCH (21:26)
[2019-09-12] MEDS: SODIUM CHLORIDE FLUSH 0.9% 10 ML SYRINGE IVP SCH ×2 (00:21→08:07)
[2019-09-12 05:49] LABS: BASOPHILS % (AUTO) 0.5 %; EOSINOPHILS # (AUTO) 0.1 10^3/uL (0.0-0.7); EOSINOPHILS % (AUTO) 3.4 %; HGB - HEMOGLOBIN 8.6 g/dL (12.0-16.0); LYMPHOCYTES # (AUTO) 0.7 10^3/uL (1.5-3.5); MEAN CORPUSCULAR HEMOGLOBIN 27.6 pg (27.0-31.0); MEAN CORPUSCULAR HGB CONC 30.1 g/dL (32.0-36.0); MEAN CORPUSCULAR VOLUME 91.7 fL (81.0-99.0); MEAN PLATELET VOLUME 11.1 fL (7.9-10.8); MONOCYTES # (AUTO) 0.4 10^3/uL (0.0-1.0); MONOCYTES % (AUTO) 8.8 %; NEUTROPHILS # (AUTO) 2.9 10^3/uL (1.5-6.6); NEUTROPHILS % (AUTO) 70.1 %; PLT - PLATELET COUNT 208 10^3/uL (130-450); RED BLOOD COUNT 3.12 10^6/uL (4.20-5.40); RED CELL DISTRIBUTION WIDTH 16.2 % (12.0-15.0); WHITE BLOOD COUNT 4.1 x10^3/uL (4.8-10.8)
[2019-09-12 05:55] LABS: CALCIUM 8.6 mg/dL (8.5-10.3); CREATININE 1.9 mg/dL (0.4-1.0)
[2019-09-12] MEDS: LEVOTHYROXINE 100 MCG TABLET PO SCH (06:28)
[2019-09-12] MEDS: CLOPIDOGREL 75 MG TABLET PO SCH (08:05)
[2019-09-12] MEDS: LOSARTAN 50 MG TABLET PO SCH (08:05)
[2019-09-12] MEDS: PRAZOSIN 1 MG CAPSULE PO SCH (08:05)
[2019-09-12] MEDS: MAGNESIUM OXIDE 400 MG TABLET PO SCH (08:05)
[2019-09-12] MEDS: SPIRONOLACTONE 25 MG TABLET PO SCH (08:06)
[2019-09-12] MEDS: POLYETHYLENE GLYCOL 3350 17 GM PACKET PO PRN (08:06)
[2019-09-12] MEDS: SENNA 8.6 MG TABLET PO PRN (08:06)
[2019-09-12] MEDS: SACCHAROMYCES BOULARDII 250 MG CAPSULE PO SCH (08:06)
[2019-09-12] MEDS: AMOX/CLAV 500 MG/125 MG TABLET PO SCH (08:06)
[2019-09-12 08:25] LABS: ABSOLUTE RETICS # AUTO 0.046 10^6/uL (0.020-0.110); RED BLOOD COUNT 3.12 10^6/uL (4.20-5.40)
[2019-09-12 08:34] LABS: FERRITIN 142.6 ng/mL (11.0-306.8)
[2019-09-12 08:52] VITALS: BP 153/47
--- NOTE | 2019-09-12 08:53 | Discharge Plan ---
"Discharge Plan for SNF / [facility] - Discharge Plan And Transition Orders Problem Reviewed?: Yes Disposition: 03 SNF DC/Xfer Condition: Poor Allergies and Adverse Reactions: Allergies Allergy/AdvReac Type Severity Reaction Status Date / Time No Known Drug Allergies Allergy Verified 09/07/19 16:16 Health Concerns: pneumonia, and NSTEMI Plan of Treatment: pt was found to have pneumonia and treated with antibiotics in hospital. Blood culture is negative for bacteremia. antibiotics are prescribed to finish the treatment course. pt was found to have, and was treated for NSTEMI in hospital. Cardiology, Dr. More, feels she can safely go for SNF rehab since she cannot go home bc of weakness and they can see her after she leaves SNF or appt can be made while in SNF. pt may continue her home meds Plavix, and simvastatin Care Goals: stabilization and improvement of pt's medical conditions Assessment: discussed with pt about her care plan, she understand. - SNF / [facility] Transition Orders Admit to (Facility): [facility] in [facility] Under the care of (Name): Nancy Mcintosh Discharge Diagnosis: NSTEMI, PNA, weakness, HTN, CKD, hypothyroidism, chronic right hip and knee pain Medicare Certification Statement: I certify that [facility] is medically necessary on a continuing basis for any of the conditions for which she/he is receiving care during hospitalization. Notify PCP of admission and forward orders to primary provider for signature. Weight on admission and: Daily Call PCP immediately if weight increases by: 2 kg Other Notification Orders: Call PCP immediately if patient develops dyspnea, chest pain/tightness or edema. House Bowel Program: Yes Additional Bowel Program Orders: If no BM after 2 days, nurse may give M.O.M. 30ml PO PRN and/or ducolax Supp 1 [place] and/or PHOEBE 250mg P.O., and/or senna 1-2 tabs PO. On day 3 nurse may give repeat above order until residents constipation is resolved. Annual Influenza Vaccine (between May 27 and December 24): Yes Two-step PPD per [facility] [phone] or approved exception documents: Yes Treatments & Other Orders: pt was found to have pneumonia and treated with antibiotics in hospital. Blood culture is negative for bacteremia. antibiotics are prescribed to finish the treatment course. pt was found to have, and was treated for NSTEMI in hospital. Cardiology, Dr. More, feels she can safely go for SNF rehab since she cannot go home bc of weakness and they can see her after she leaves SNF or appt can be made while in SNF. pt may continue her home meds Plavix, and simvastatin. pt may followup her arc trimmer appointment as out-pt Medication Orders: PLEASE REFER TO THE DISCHARGE MEDICATION LIST. Insulin Orders?: No - Medications New Prescriptions: oxyCODONE [Roxicodone] 5 mg PO Q4HR PRN #15 tablet PRN Reason: Pain 5 to 7 Amox/Clav 500/125 [Augmentin 500/125] 1 tab PO BID #6 tablet Doxycycline Hyclate 100 mg PO BID #6 capsule - Diet Type: Geriatric Texture: Regular Liquids: Thin May have monthly special meal: Yes - Therapies | Activity Therapy: Evaluation | Treat if indicated: PT, OT Rehabilitation Potential: Maximize functional status Activity: Activity as Tolerated Additional Instructions: pt may followup her PCP when she is arrival to [facility]. pt was found to have pneumonia and treated with antibiotics in hospital. Blood culture is negative for bacteremia. antibiotics are prescribed to finish the treatment course. pt was found to have, and was treated for NSTEMI in hospital. Cardiology, Dr. More, feels she can safely go for SNF rehab since she cannot go home bc of weakness and they can see her after she leaves SNF or appt can be made while in SNF. pt may continue her home meds Plavix, and simvastatin. pt may followup her arc trimmer appointment as out-pt"
[2019-09-12] MEDS ORDERED: DOXYCYCLINE 100 MG TABLET PO SCH (09:00)
--- NOTE | 2019-09-12 09:20 | DISCHARGE SUMMARY ---
Discharge Summary Admit Date: 09/07/19 Discharge Date: 09/12/19 Discharging Provider: GLORIA Primary Care Provider: Nancy Mcintosh Condition at Discharge: Poor Discharge Disposition: 03 SNF DC/Xfer Discharge Facility Name: [facility] - DIAGNOSES Admission Diagnoses: (1) Hospital-acquired pneumonia (2) Generalized weakness (3) Right hip pain (4) Hypertension (5) Chronic renal insufficiency (6) Rhabdomyolysis (7) Hypothyroidism Discharge Diagnoses with Status of Each Condition: (1) NSTEMI (non-ST elevated myocardial infarction) stable and resolved. Troponin has been steadily reduced from 1000 to 200. pt report " I feel very good today." Cardiology, Dr. More, was called two days ago, she felt she can safely go for SNF rehab since she cannot go home bc of weakness and they can see her after she leaves SNF or appt can be made while in SNF. pt may continue her home meds Plavix, and simvastatin. ECHO reveals on 09/07/19 preserved EF and normal right heart pressure. pt has 97% sats on room air. pt denies shortness of breath. CXR reveals trace pleural effusion otherwise unremarkable. (2) Hospital-acquired pneumonia stable. pt was treated with antibiotics in hospital. blood culture is negative for bacteremia. pt is prescribed Augmentin and Doxycycline to finish the treatment course. (3) Generalized weakness improved. continue SNF for training. (4) Right hip pain and right knee pain stable. pt is prescribed pain meds. Xray reveals osteoarthritis without fracture or dislocation. (5) Hypertension stable (6) Chronic renal insufficiency improving today improved and stable (7) hx of Rhabdomyolysis resolved (8) Hypothyroidism stable (9)anemia stable and chronic . pt had HGB 8.8 at the admission, today HGB is 8.6. pt denies GI bleed. pt is asymptomatic, she denies lightheaded, dizziness. it appear from pt's chronic kidney disease, advise pt followup his neuphrologist to manage - HPI History of Present Illness: refer from Dr. Maynard's HPI on 09/07/19 This is a 84-year-old female with a past medical history significant for hypothyroidism, chronic renal insufficiency, hypertension, osteoarthritis who presents today complaining of right sided hip pain and generalized weakness. She was just discharged in the hospital yesterday after being admitted for syncope and fall. She is found to have rhabdomyolysis and acute kidney injury which responded well to IV fluids. She was also found to have a urinary tract infection and discharged on Keflex. She worked with physical therapy during that hospitalization and was able to ambulate with a walker and she was disch arged home yesterday. Her family states that since she has been home, she has had difficulty ambulating and has been very weak. She woke up today at around noon and could barely get the side of the bed. Physical therapy evaluated the patient at home and the patient was unable to participate due to the weakness and right hip pain. She has been taking Tylenol without improvement in the pain. She states her pain began after the fall she had about 1 week ago. She does have chronic severe osteoarthritis of both of her knees and a total knee replacement was recommended but due to her health, she has not proceeded with surgery. A day she is complaining of chills and a nonproductive cough. She reports no dyspnea or chest pain. She denies fever although the patient's family felt she was a little warm today. She reports no nausea or vomiting. She has been constipated at times has not had a bowel movement since discharge. In the emergency department, she is found to be febrile with temperature of 38.2. Her heart rate was in the 50s, she was not tachypneic and saturating 99% on room air. She was also hypertensive with a systolic blood pressure in the 150s. Her labs revealed a white count of 4.6 which is stable compared to discharge. Her creatinine was at 1.9 which is also stable since discharge. Her CK's are in the low 300's which is improved. A chest x-ray was concerning for a new left sided infiltrate. An x-ray of the right hip did not reveal a fracture. Given her fever and concern for pneumonia, medicine was consulted for admission. I did speak with the patient and her family regarding goals of care and she would like to be a DNR. She is agreeable to a correction facility on discharge if necessary. - HOSPITAL COURSE Hospital Course: pt was admitted for mild fever. pt was found to have PNA. pt was treated with antibiotics. pt's blood culture was negative for bacteremia. pt has no more fever or chill. pt is hemodynamically stable. pt also was found to have NSTEMI. pt was treated with lovenex and Plavix. pt's ECHO was unremarkable. after treatment, pt's troponin has steadily been reduced from over 1000 down to 200. Mortgage Accounting Clerk was reached and recommended pt can be d/c, and followup chest pain coordinator. PT/OT evaluated and treated with pt. pt was recommended to SNF. The detail hospital course is as the below. (1) NSTEMI (non-ST elevated myocardial infarction) stable and resolved. Troponin has been steadily reduced from 1000 to 200. pt report " I feel very good today." Cardiology, Dr. More, was called two days ago, she felt she can safely go for SNF rehab since she cannot go home bc of weakness and they can see her after she leaves SNF or appt can be made while in SNF. pt may continue her home meds Plavix, and simvastatin. ECHO reveals on 09/07/19 preserved EF and normal right heart pressure. pt has 97% sats on room air. pt denies shortness of breath. CXR reveals trace pleural effusion otherwise unremarkable. (2) Hospital-acquired pneumonia stable. pt was treated with antibiotics in hospital. blood culture is negative for bacteremia. pt is prescribed Augmentin and Doxycycline to finish the treatment course. (3) Generalized weakness improved. continue SNF for training. (4) Right hip pain and right knee pain stable. pt is prescribed pain meds. Xray reveals osteoarthritis without fracture or dislocation. (5) Hypertension stable (6) Chronic renal insufficiency improving today improved and stable (7) hx of Rhabdomyolysis resolved (8) Hypothyroidism stable (9)anemia stable and chronic . pt had HGB 8.8 at the admission, today HGB is 8.6. pt denies GI bleed. pt is asymptomatic, she denies lightheaded, dizziness. it appear from pt's chronic kidney disease, advise pt followup his neuphrologist to manage - ALLERGIES Allergies/Adverse Reactions: Allergies Allergy/AdvReac Type Severity Reaction Status Date / Time No Known Drug Allergies Allergy Verified 09/07/19 16:16 - MEDICATIONS Home Medications: Ambulatory Orders Medication Instructions Recorded Confirmed ALPRAZolam [Alprazolam] 0.25 mg PO TID PRN 09/05/19 09/08/19 Clopidogrel [Plavix] 75 mg PO DAILY 09/05/19 09/08/19 Gabapentin 300 mg PO QPM 09/05/19 09/08/19 Levothyroxine [Synthroid] 100 mcg PO QDAC 09/05/19 09/08/19 Losartan Potassium [Cozaar] 50 mg PO DAILY 09/05/19 09/08/19 Prazosin [Minipress] 1 mg PO BID 09/05/19 09/08/19 Simvastatin 20 mg PO QPM 09/05/19 09/08/19 Saccharomyces Boulardii [Florastor] 250 mg PO DAILY #6 capsule 09/06/19 09/08/19 Amox/Clav 500/125 [Augmentin 1 tab PO BID #6 tablet 09/12/19 500/125] Doxycycline Hyclate 100 mg PO BID #6 capsule 09/12/19 oxyCODONE [Roxicodone] 5 mg PO Q4HR PRN #15 tablet 09/12/19 - PHYSICAL EXAM AT DISCHARGE General Appearance: positive: No acute distress, Alert. negative: Lethargic Eyes Bilateral: positive: Normal inspection, PERRL, EOMI, No lid inflammation ENT: positive: ENT inspection nml, Pharynx nml, No signs of dehydration. negative: Purulent nasal drainage Neck: positive: Nml inspection, Thyroid nml, No JVD, Trachea midline. negative: Thyromegaly, Lymphadenopathy (R), Lymphadenopathy (L), Stiff neck Respiratory: positive: Chest non-tender, No respiratory distress, Breath sounds nml. negative: Wheezes, Rales, Rhonchi Cardiovascular: positive: Regular rate & rhythm, No murmur, No gallop. negative: Irregularly irregular, Extrasystoles, Tachycardia, Bradycardia, JVD present, Systolic murmur, Diastolic murmur Peripheral Pulses: positive: 2+ Abdomen: positive: Non-tender, No organomegaly, Nml bowel sounds, No distention. negative: Tenderness, Guarding, Rebound Back: positive: Nml inspection. negative: CVA tenderness (R), CVA tenderness (L) Skin: positive: Color nml, No rash, Warm, Dry. negative: Cyanosis, Diaphoresis, Pallor Extremities: positive: Non-tender, Full ROM, Nml appearance. negative: Calf tenderness, Mehreen's sign/cords Neurologic/Psychiatric: positive: Oriented x3, Motor nml, Sensation nml, Mood/affect nml. negative: Weakness, Sensory loss, Facial droop, Slurred/abnml speech, Depressed mood/affect - LABS Result Diagrams: 09/12/19 05:30 09/12/19 05:30 - SEPSIS Current Stage of Sepsis: Ruled out - FOLLOW UP Follow Up: pt may followup her PCP when she is arrival to [facility]. pt was found to have pneumonia and treated with antibiotics in hospital. Blood culture is negative for bacteremia. antibiotics are prescribed to finish the treatment course. pt was found to have, and was treated for NSTEMI in hospital. Cardiology, Dr. More, feels she can safely go for SNF rehab since she cannot go home bc of weakness and they can see her after she leaves SNF or appt can be made while in SNF. pt may continue her home meds Plavix, and simvastatin. pt may followup her shredding specialist appointment as out-pt pt has a small bump on the skin of her upper left chest. she felt mild pain when palpation. CXR reveals unremarkable. advise pt has Mammogram as out-pt - TIME SPENT Time Spent in Discharge (Minutes): 50
== END 2019-09-12 11:05 | DRG 280 ==
LOC: EDUNIT# → ED 16:08 → MS2 18:21
PROVIDERS: ADMIT Internal Medicine; ATTEND Nurse Practitioner Gerontology
PROC: 3E0U33Z Introduction of Anti-inflammatory into Joints, Percutaneous Approach (ICD-10-PCS; principal; 2019-09-09)
PROC: 3E0U3BZ Introduction of Anesthetic Agent into Joints, Percutaneous Approach (ICD-10-PCS; 2019-09-09)
DX: I21.4 Non-ST elevation (NSTEMI) myocardial infarction (principal); J18.9 Pneumonia, unspecified organism; M17.11 Unilateral primary osteoarthritis, right knee; I12.9 Hypertensive chronic kidney disease with stage 1 through stage 4 chronic kidney disease, or unspecified chronic kidney disease; N18.9 Chronic kidney disease, unspecified; Z74.01 Bed confinement status; Z79.899 Other long term (current) drug therapy; Z79.02 Long term (current) use of antithrombotics/antiplatelets; N39.0 Urinary tract infection, site not specified; N18.4 Chronic kidney disease, stage 4 (severe); I13.0 Hypertensive heart and chronic kidney disease with heart failure and stage 1 through stage 4 chronic kidney disease, or unspecified chronic kidney disease; I50.32 Chronic diastolic (congestive) heart failure; Y95 Nosocomial condition; T79.6XXD Traumatic ischemia of muscle, subsequent encounter; M16.11 Unilateral primary osteoarthritis, right hip; M17.0 Bilateral primary osteoarthritis of knee; E03.9 Hypothyroidism, unspecified; D63.1 Anemia in chronic kidney disease; K59.00 Constipation, unspecified; R22.2 Localized swelling, mass and lump, trunk; F32.9 Major depressive disorder, single episode, unspecified; R00.1 Bradycardia, unspecified; H91.90 Unspecified hearing loss, unspecified ear; Z66 Do not resuscitate; Z60.2 Problems related to living alone; Z63.4 Disappearance and death of family member; Z91.81 History of falling; Z86.19 Personal history of other infectious and parasitic diseases
CPT/HCPCS: 36415; 51701; 71045; 73502; 73560; 80048; 80053; 81003; 82550; 82607; 82728; 83605; 83615; 83690; 83735; 83880; 84100; 84484; 85025; 85045; 85651; 86140; 87040; 87275; 87276; 93005; 93306; 96365; 96375; 97116; 97162; 97530; 99285; A6250; A9270; J1650; J7120; 81001; 83540; 84466; 87086

== ENCOUNTER 2019-11-20 08:52 | Outpatient (CLI) | payer MEDICARE ==
--- NOTE | 2019-11-20 21:53 | XRAY Report ---
Reason: HAND PAIN Procedure Date: 11/20/2019 Accession Number: [id number] / [id number] Procedure: XRN - Hand 3 View RT CPT Code: Final Report FULL RESULT: EXAM: RIGHT HAND RADIOGRAPHY EXAM DATE: 11/20/2019 09:13 AM. CLINICAL HISTORY: HAND PAIN and swelling for 2 months. No known injury. COMPARISON: None. TECHNIQUE: 3 views. FINDINGS: Bones: Normal. No fractures or bone lesions. Joints: Moderate joint space narrowing at the first and second metacarpal phalangeal joints. Mild joint space narrowing and osteophyte formation at the second PIP and second through fourth DIP joints with mild osteophyte formation. No erosions. No subluxation or angulation. Soft Tissues: Moderate diffuse soft tissue swelling throughout the wrist, hand, and phalanges (greatest proximally). IMPRESSION: 1. Moderate diffuse soft tissue swelling in the wrist, hand, and proximal fingers. 2. No underlying erosive arthropathy is identified. There is joint space narrowing and variable osteophyte formation involving first and second metacarpal phalangeal, second proximal interphalangeal, and second through fourth distal interphalangeal joints most suggestive of osteoarthritis. RADIA
== END 2019-11-20 08:53 | disposition home or self-care (01) ==
LOC: DI.N 08:52
PROVIDERS: ATTEND Internal Medicine
DX: M79.641 Pain in right hand (principal); M79.89 Other specified soft tissue disorders; M25.741 Osteophyte, right hand

== ENCOUNTER 2020-12-18 07:00 | Outpatient (CLI) | payer MEDICARE ==
--- NOTE | 2020-12-18 14:26 | XRAY Report ---
PROCEDURE: Knee 3 View BILAT INDICATIONS: OSTEOARTHRITIS TECHNIQUE: 3 views of each knee(s) were acquired. COMPARISON: 09/08/2019 and 09/04/2019 FINDINGS: Bones: No acute acute fractures or dislocations. No suspicious bony lesions. Redemonstration of se angelina tricompartmental degenerative changes of the bilateral knees with near complete medial compartme nt joint space loss of the bilateral knee more pronounced on the right. Soft tissues: No substantial joint effusion. No suspicious soft tissue calcifications. IMPRESSION: Bilateral knee without acute fracture or dislocation. Mild interval progression of sever e tricompartmental osteoarthrosis of the bilateral knee, more pronounced on the right. Reviewed by: Akbar Arizmendi MD on 12/18/2020 2:25 PM PDT Approved by: Akbar Arizmendi MD on 12/18/2020 2:25 PM PDT Station ID: [id number]
== END 2020-12-18 23:59 | disposition home or self-care (01) ==
LOC: DI.N 07:00
PROVIDERS: ATTEND Internal Medicine
DX: M17.0 Bilateral primary osteoarthritis of knee (principal)

== ENCOUNTER 2021-08-28 20:01 | Outpatient (CLI) | payer MEDICARE | END 2021-08-28 20:02 | disposition critical access hospital (66) | LOC: EMS 20:01 | DX: R45.0 Nervousness (principal) | CPT/HCPCS: A0425; A0429 ==

== ENCOUNTER 2021-08-28 20:18 | Emergency (ER) | payer MEDICARE ==
[2021-08-28] MEDS ORDERED: ALPRAZolam 0.25 MG TABLET PO STA (20:30)
--- NOTE | 2021-08-28 20:30 | ED Physician Documentation ---
History of Present Illness - Stated complaint Stated Complaint: SHAKING - Chief complaint Chief Complaint: General - History obtained from History obtained from: Patient, EMS - Additonal information Additional information: 86yF DNR/DNI with selective measures only on POLST, with pmh Hypertension, CKD, hypothyroidism, anxiety on as needed Xanax, presents with "anxiety" per patient report. She states that she had dinner and was sitting down afterward and began to feel anxious and shaky. Lianet called EMS and she was brought to the emergency department after determining that her vital signs were normal in the field. Patient denies pain anywhere or any other symptoms, stating that she just feels anxious. denies taking any medications prior to arrival. Review of Systems Ten Systems: 10 systems reviewed and negative Constitutional: denies: Fever, Chills Cardiac: denies: Chest pain / pressure Respiratory: denies: Dyspnea GI: denies: Nausea Psychiatric: reports: Anxiety PD PAST MEDICAL HISTORY - Past Medical History Cardiovascular: Hypertension Respiratory: None Neuro: None Endocrine/Autoimmune: HyPOthyroidism GI: None LIVESTOCK INSPECTOR: None : None HEENT: None Psych: None Musculoskeletal: Osteoarthritis Derm: None - Present Medications Home Medications: Ambulatory Orders Medication Instructions Recorded Confirmed Clopidogrel [Plavix] 75 mg PO DAILY 09/05/19 08/28/21 Gabapentin 300 mg PO QPM 09/05/19 08/28/21 Levothyroxine [Synthroid] 100 mcg PO QDAC 09/05/19 08/28/21 Losartan Potassium [Cozaar] 50 mg PO DAILY 09/05/19 08/28/21 Prazosin [Minipress] 1 mg PO BID 09/05/19 08/28/21 Alprazolam [Xanax] 0.25 mg PO BID PRN 08/28/21 08/28/21 Amlodipine Besylate [Norvasc] 1.5 mg PO DAILY 08/28/21 08/28/21 Atorvastatin [Lipitor] 10 mg PO QPM 08/28/21 08/28/21 Colchicine 0.6 mg PO DAILY 08/28/21 08/28/21 Hydralazine HCl 50 mg PO TID 08/28/21 08/28/21 Multivitamin 1 tab PO DAILY 08/28/21 08/28/21 Saccharomyces Boulardii [Florastor] 250 mg PO DAILY 08/28/21 08/28/21 Sertraline [Zoloft] 50 mg PO DAILY 08/28/21 08/28/21 allopurinoL [Allopurinol] 300 mg PO DAILY 08/28/21 08/28/21 - Allergies Allergies/Adverse Reactions: Allergies Allergy/AdvReac Type Severity Reaction Status Date / Time No Known Drug Allergies Allergy Verified 08/28/21 20:32 - Social History Does the pt smoke?: No Smoking Status: Never smoker Does the pt drink ETOH?: No Does the pt have substance abuse?: No - Immunizations Immunizations: TDAP >10years/unknown - POLST Patient has POLST: No POLST Status: DNR PD ED PE NORMAL - Vitals Vital signs reviewed: Yes - General General: Alert and oriented X 3, No acute distress, Other (elderly appearing) - HEENT HEENT: Atraumatic, PERRL, EOMI - Neck Neck: Supple, no meningeal sign - Cardiac Cardiac: RRR - Respiratory Respiratory: No respiratory distress, Clear bilaterally - Abdomen Abdomen: Non tender, Non distended - Derm Derm: Normal color, Warm and dry - Extremities Extremities: No deformity - Neuro Neuro: Alert and oriented X 3 - Psych Psych: Other (anxious mood and affect) Results - Vitals Vitals: Vital Signs - 24 hr 08/28/21 08/28/21 08/28/21 20:20 20:40 21:07 Temperature 36.7 C 35.6 C L Heart Rate 64 60 64 Respiratory 13 20 19 Rate Blood Pressure 131/62 H 111/74 127/53 L O2 Saturation 99 97 98 Oxygen O2 Source Room air - EKG (time done) 2132 Rate: Rate (enter#) (64) Rhythm: NSR Compare to prior EKG: Unchanged from prior EKG (09/07/19) PD MEDICAL DECISION MAKING - ED course ED course: 86yF presents with feelings of anxiety and sensation of shaking, without any other associated symptoms. She has xanax 0.25 bid prn ordered at [facility] but has not taken any of this medication today. Given she is DNR/DNI with selective interventions and otherwise asymptomatic at this time with normal vitals and exam we will order screening ekg and treat with her home dose of xanax. plan to dc home to [facility] to f/u with her pmd outpatient. return precautions given. Departure - Departure Disposition: 01 Home, Self Care Clinical Impression: Anxiety, Shaking Condition: Good Instructions: ED Stress React Comments: You were seen in the emergency department for shaking and feelings of anxiety. Your vital signs and exam were normal. You were given 0.25 mg of Xanax which is the medication listed as one of your home medications as needed for anxiety. Please plan to follow-up with your primary doctor this week and return to the emergency department if you have any new or worsening symptoms or other concerns.
[2021-08-28 22:40] VITALS: BP 115/51
== END 2021-08-28 22:30 | disposition home or self-care (01) ==
LOC: EDUNIT# → ED 20:18
DX: R25.1 Tremor, unspecified (principal); F41.9 Anxiety disorder, unspecified; I10 Essential (primary) hypertension; Z66 Do not resuscitate
CPT/HCPCS: 93005; 99283; 99284; A9270

== ENCOUNTER 2021-09-02 14:19 | Outpatient (CLI) | payer MEDICARE | END 2021-09-02 14:20 | disposition critical access hospital (66) | LOC: EMS 14:19 | DX: R40.4 Transient alteration of awareness (principal) | CPT/HCPCS: A0425; A0427 ==

== ENCOUNTER 2021-09-02 14:36 | Emergency (ER) | payer MEDICARE ==
--- NOTE | 2021-09-02 15:17 | ED Physician Documentation ---
PD HPI SYNCOPE - Stated complaint Stated Complaint: LOW BP/LOW HR - Chief complaint Chief Complaint: Cardiac - History obtained from History obtained from: Patient - History of Present Illness Witnessed: Witnessed Timing - onset: How many hours ago (1), Today Duration: Minutes Preceding symptoms: Other (patient says she was feeling tired and somewhat lightheaded. She remembers caregivers talking to her but she not responding. Report through EMS was patient poorly responsive/rousable, so EMS called. They found her to be alert, transiently low BP that improved enroute.). No: Headache Associated symptoms: No: Seizure, Incontinant of urine Contributing factors: Recent med change (had Hydralazine added 08/20 for HTN. Amlodipine was started early ) Injury occurred: No: Fell, Head injury Similar symptoms before: Has not had sx before Review of Systems Constitutional: denies: Fever, Chills Nose: denies: Rhinorrhea / runny nose, Congestion Throat: denies: Sore throat Respiratory: denies: Cough GI: denies: Nausea, Vomiting, Diarrhea Neurologic: denies: Focal weakness, Numbness, Headache Endocrine: denies: Weight loss PD PAST MEDICAL HISTORY - Past Medical History Cardiovascular: Hypertension Respiratory: None Neuro: None Endocrine/Autoimmune: HyPOthyroidism GI: None [employer]: None : None HEENT: None Psych: None Musculoskeletal: Osteoarthritis Derm: None - Present Medications Home Medications: Ambulatory Orders Medication Instructions Recorded Confirmed Clopidogrel [Plavix] 75 mg PO DAILY 09/05/19 08/28/21 Gabapentin 300 mg PO QPM 09/05/19 08/28/21 Levothyroxine [Synthroid] 100 mcg PO QDAC 09/05/19 08/28/21 Losartan Potassium [Cozaar] 50 mg PO DAILY 09/05/19 08/28/21 Prazosin [Minipress] 1 mg PO BID 09/05/19 08/28/21 Alprazolam [Xanax] 0.25 mg PO BID PRN 08/28/21 08/28/21 Amlodipine Besylate [Norvasc] 1.5 mg PO DAILY 08/28/21 08/28/21 Atorvastatin [Lipitor] 10 mg PO QPM 08/28/21 08/28/21 Colchicine 0.6 mg PO DAILY 08/28/21 08/28/21 Hydralazine HCl 50 mg PO TID 08/28/21 08/28/21 Multivitamin 1 tab PO DAILY 08/28/21 08/28/21 Saccharomyces Boulardii [Florastor] 250 mg PO DAILY 08/28/21 08/28/21 Sertraline [Zoloft] 50 mg PO DAILY 08/28/21 08/28/21 allopurinoL [Allopurinol] 300 mg PO DAILY 08/28/21 08/28/21 - Allergies Allergies/Adverse Reactions: Allergies Allergy/AdvReac Type Severity Reaction Status Date / Time No Known Drug Allergies Allergy Verified 09/02/21 14:50 - Social History Does the pt smoke?: No Smoking Status: Never smoker Does the pt drink ETOH?: No Does the pt have substance abuse?: No - Immunizations Immunizations: TDAP >10years/unknown - POLST Patient has POLST: No POLST Status: DNR PD ED PE NORMAL - Vitals Vital signs reviewed: Yes - General General: Alert and oriented X 3, Well developed/nourished - HEENT HEENT: Atraumatic, Moist mucous membranes, Pharynx benign - Neck Neck: Supple, no meningeal sign, No adenopathy - Cardiac Cardiac: RRR, No murmur - Respiratory Respiratory: Clear bilaterally - Abdomen Abdomen: Soft, Non tender - Derm Derm: Normal color, Warm and dry - Extremities Extremities: No tenderness to palpate, Normal ROM s pain, No edema - Neuro Neuro: Alert and oriented X 3, No motor deficit, Normal speech Eye Opening: To Voice Motor: Obeys Commands Verbal: Oriented GCS Score: 14 Results - Vitals Vitals: Vital Signs - 24 hr 09/02/21 09/02/21 09/02/21 14:45 17:00 18:00 Temperature 35.9 C L Heart Rate 59 L 57 L 60 Respiratory 16 19 21 Rate Blood Pressure 137/54 H 136/46 H 126/39 L O2 Saturation 96 98 97 Oxygen O2 Source Room air - Labs Labs: Laboratory Tests 09/02/21 09/02/21 09/02/21 15:45 15:45 15:45 WBC 3.5 L RBC 2.98 L Hgb 8.7 L Hct 27.7 L MCV 93.0 MCH 29.2 MCHC 31.4 L RDW 17.2 H Plt Count 190 MPV 10.3 Neut # (Auto) 2.2 Lymph # (Auto) 0.8 L [place] # (Auto) 0.3 Eos # (Auto) 0.1 Baso # (Auto) 0.0 Absolute Nucleated RBC 0.00 Nucleated RBC % 0.0 Sodium 137 Potassium 5.0 Chloride 110 Carbon Dioxide 17 L Anion Gap 10.0 BUN 74 H Creatinine 3.2 H Estimated GFR (MDRD) 14 L Glucose 89 Calcium 8.7 Magnesium 2.2 Iron TIBC % Saturation Transferrin Total Bilirubin 0.5 AST 92 H ALT 100 H Alkaline Phosphatase 132 H Troponin I High Sens 34.3 H* Total Protein 6.5 L Albumin 3.6 Globulin 2.9 Albumin/Globulin Ratio 1.2 Lipase 49 TSH 09/02/21 09/02/21 15:45 15:45 WBC RBC Hgb Hct MCV MCH MCHC RDW Plt Count MPV Neut # (Auto) Lymph # (Auto) [place] # (Auto) Eos # (Auto) Baso # (Auto) Absolute Nucleated RBC Nucleated RBC % Sodium Potassium Chloride Carbon Dioxide Anion Gap BUN Creatinine Estimated GFR (MDRD) Glucose Calcium Magnesium Iron 63 TIBC 281 % Saturation 22 Transferrin 201 Total Bilirubin AST ALT Alkaline Phosphatase Troponin I High Sens Total Protein Albumin Globulin Albumin/Globulin Ratio Lipase TSH 0.41 - Rads (name of study) head CT Radiology: Prelim report reviewed (no acute changes. ), See rad report PD MEDICAL DECISION MAKING - ED course Complexity details: reviewed results (elevated creatinine of 3.2 compared to 1.9 most recent (2 years ago). unclear if acute rise. Could relate to recent Hydralazien med change. Could account for low BP this evening. Can adjust down the dose. ), re-evaluated patient (she is sleepy here but rouses easily and is alert and conversant then. ), considered differential, d/w patient Departure - Departure Disposition: 01 Home, Self Care Clinical Impression: Somnolence, Transient hypotension, Elevated serum creatinine Anemia Qualifiers: Anemia type: iron deficiency Iron deficiency anemia type: unspecified iron deficiency Qualified Code(s): D50.9 - Iron deficiency anemia, unspecified Condition: Stable Record reviewed to determine appropriate education?: Yes Comments: You do seem to be very sleepy here but rouse appropriately and have normal conversation. Your blood pressure has been normal while here. I presume your low blood pressure transiently may relate to the recently added blood pressure medicine hydralazine. Your current dose of the hydralazine is 3 times a day. I would decrease it to once daily at night. I would suggest having your primary care recheck your creatinine level and chemistry panel in 2 days to see if it is improving. Stay adequately hydrated. You are anemic and it looks like you have been anemic for a while. Talk with your primary care about adding an iron supplement. In summary the action points are: 1. Decrease your hydralazine from 3 times a day to once daily at night 2. Stay adequately hydrated 3. Recheck your basic chemistry panel in 2 days 4. Consider adding an iron supplement Discharge Date/Time: 09/02/21 18:57
[2021-09-02 15:50] LABS: BASOPHILS % (AUTO) 0.6 %; EOSINOPHILS # (AUTO) 0.1 10^3/uL (0.0-0.7); HCT - HEMATOCRIT 27.7 % (37.0-47.0); HGB - HEMOGLOBIN 8.7 g/dL (12.0-16.0); LYMPHOCYTES # (AUTO) 0.8 10^3/uL (1.5-3.5); MEAN CORPUSCULAR HEMOGLOBIN 29.2 pg (27.0-31.0); MEAN CORPUSCULAR HGB CONC 31.4 g/dL (32.0-36.0); MEAN PLATELET VOLUME 10.3 fL (7.9-10.8); MONOCYTES # (AUTO) 0.3 10^3/uL (0.0-1.0); MONOCYTES % (AUTO) 9.1 %; NEUTROPHILS # (AUTO) 2.2 10^3/uL (1.5-6.6); PLT - PLATELET COUNT 190 10^3/uL (130-450); RED BLOOD COUNT 2.98 10^6/uL (4.20-5.40); RED CELL DISTRIBUTION WIDTH 17.2 % (12.0-15.0); WHITE BLOOD COUNT 3.5 x10^3/uL (4.8-10.8)
[2021-09-02 16:07] LABS: ALBUMIN 3.6 g/dL (3.2-5.5); ALBUMIN/GLOBULIN RATIO 1.2 (1.0-2.2); BILIRUBIN,TOTAL 0.5 mg/dL (0.2-1.0); CALCIUM 8.7 mg/dL (8.5-10.3); CREATININE 3.2 mg/dL (0.4-1.0); MAGNESIUM 2.2 mg/dL (1.7-2.8); TOTAL PROTEIN 6.5 g/dL (6.7-8.2)
[2021-09-02] MEDS ORDERED: SODIUM CHLORIDE 0.9% 500 ML IV STA (16:31)
--- NOTE | 2021-09-02 16:40 | CT Report ---
PROCEDURE: HEAD WO INDICATIONS: somnolent/confused today TECHNIQUE: Noncontrast 4.5 mm thick angled axial sections acquired from the foramen magnum to the vertex. For r adiation dose reduction, the following was used: automated exposure control, adjustment of mA and/or kV according to patient size. COMPARISON: 09/04/2019 FINDINGS: Image quality: There is streak artifact seen through the skull base. CSF spaces: Basal cisterns are patent. No extra-axial fluid collections. Ventricles are normal in size and shape. Brain: No midline shift. No intracranial masses or hemorrhage. Hutton-white matter interface is norm al. A chronic, stable infarction can be seen on the left, which primarily involves the parietal lobe . Skull and face: Generalized thickening can be seen of the bones of the skull base and the anterior ca lvarium. Please correlate with a potential underlying metabolic disorder, such as Paget's disease. Sinuses: Visualized sinuses and mastoids are clear. IMPRESSION: No significant intracranial abnormality is seen. 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 If it would be helpful for clinical management decision making, please consider a dedicated brain MRI for further evaluation (assuming that there is no contraindication). Reviewed by: Gomez Amador MD on 09/02/2021 3:39 PM [facility] Approved by: Gomez Amador MD on 09/02/2021 3:39 PM [facility] Station ID: [id number]
[2021-09-02 17:32] LABS: % IRON SATURATION 22 % (20-50); IRON 63 ug/dL (28-170); TOTAL IRON BINDING CAPACITY 281 ug/dL (250-450); TRANSFERRIN 201 mg/dL (192-382)
[2021-09-02 18:33] VITALS: BP 126/39
== END 2021-09-02 18:57 | disposition home or self-care (01) ==
LOC: EDUNIT# → ED 14:36
DX: R40.0 Somnolence (principal); D50.9 Iron deficiency anemia, unspecified; I95.89 Other hypotension; R79.89 Other specified abnormal findings of blood chemistry; I10 Essential (primary) hypertension
CPT/HCPCS: 36415; 80053; 83540; 83690; 83735; 84443; 84466; 84484; 85025; 93005; 96360; 96361; 99283

== ENCOUNTER 2021-09-28 16:43 | Outpatient (CLI) | payer MEDICARE | END 2021-09-28 16:44 | disposition E | LOC: EMS 16:43 | DX: I46.9 Cardiac arrest, cause unspecified (principal) ==